=== PATIENT | female | born 1935 | race Two or more races ===

== ENCOUNTER 2017-04-04 19:34 | Inpatient (IN) | payer OTHER ==
[~2017-04-04] VITALS: Ht 162.6 cm; Wt 63.5 kg
--- NOTE | 2017-04-04 19:36 | NUR ---
[facility]. c/o lle pain s/p mechanical trip and fall. denies head trauma. no obvious deformity noted. stable vitals. awaiting md mcgarry.
--- NOTE | 2017-04-04 19:53 | NUR ---
dr levy at bedside for eval.
--- NOTE | 2017-04-04 20:52 | NUR ---
iv line started blood drawn and sent to lab.
[2017-04-04 21:06] LABS: BASOPHILS # (AUTO) 0.1 /CMM (0.0-0.2); BASOPHILS % (AUTO) 0.7 % (0.0-2.0); EOSINOPHILS # (AUTO) 0.2 /CMM (0.0-0.7); EOSINOPHILS % (AUTO) 1.1 % (0.0-6.0); HEMATOCRIT 36 % (33-45); LYMPHOCYTES # (AUTO) 1.1 /CMM (0.8-4.8); LYMPHOCYTES % (AUTO) 6.6 % (20.0-44.0); MEAN CORPUSCULAR HEMOGLOBIN 32 PG (26.0-33.0); MEAN CORPUSCULAR HGB CONC 33 g/dl (31.0-36.0); MEAN CORPUSCULAR VOLUME 97 fL (82-100); MONOCYTES # (AUTO) 0.4 /CMM (0.1-1.30); MONOCYTES % (AUTO) 2.7 % (2.0-12.0); NEUTROPHILS # (AUTO) 14.1 /CMM (1.8-8.9); NEUTROPHILS % (AUTO) 88.9 % (43.0-81.0); PLATELET COUNT (AUTO) 196 /CMM (150-450); RDW COEFFICIENT OF VARIATION 19.7 (11.5-15.0); RED BLOOD CELL COUNT(AUTO) 3.76 MIL/uL (4.0-5.2); WHITE BLOOD COUNT (AUTO) 15.8 K/uL (4.3-11.0)
--- NOTE | 2017-04-04 21:21 | NUR ---
DR.OLEG NESBITT
[2017-04-04] MEDS ORDERED: ACETAMINOPHEN ES 500 MG TABLET ONE (21:23)
[2017-04-04] MEDS ORDERED: ACETAMINOPHEN ES 500 MG TABLET PO ONE (21:30)
[2017-04-04 21:31] LABS: CALCIUM, SERUM 8.7 mg/dL (8.5-10.1); CARBON DIOXIDE 25 mmol/L (21-32); CHLORIDE 107 mmol/L (98-107); CREATININE 1.3 mg/dL (0.6-1.3); GLUCOSE 105 mg/dL (74-106); POTASSIUM 4.4 mmol/L (3.5-5.1); SODIUM SERUM 141 mmol/L (136-145); UREA NITROGEN, BLOOD 29 mg/dL (7-18)
[2017-04-04 21:34] LABS: INR 0.99 (0.87-1.13); PROTHROMBIN TIME 10.3 SECS (9.5-12.7)
[2017-04-04 21:37] LABS: ALANINE AMINOTRANSFERASE 13 U/L (12-78); ALBUMIN 3.3 g/dL (3.4-5.0); ALKALINE PHOSPHATASE 54 U/L (46-116); ASPARTATE AMINOTRANSFERASE 19 U/L (15-37); BILIRUBIN,DIRECT 0.1 mg/dL (0.0-0.2); BILIRUBIN,TOTAL 0.3 mg/dL (0.2-1.0); TOTAL PROTEIN, SERUM 6.6 g/dL (6.4-8.2)
[2017-04-04 21:39] LABS: TROPONIN I < 0.017 ng/mL (0.00-0.056)
[2017-04-04] MEDS ORDERED: ONDANSETRON HCL/PF 4 MG/2 ML VIAL ONE (21:44)
[2017-04-04] MEDS ORDERED: MORPHINE SULFATE INJ 2 MG/ML DISP.SYRIN ONE (21:44)
[2017-04-04] MEDS ORDERED: MORPHINE SULFATE INJ 2 MG/ML DISP.SYRIN IV ONE (22:00)
[2017-04-04] MEDS ORDERED: ONDANSETRON HCL/PF 4 MG/2 ML VIAL IVP ONE (22:00)
--- NOTE | 2017-04-04 22:12 | NUR ---
report given to ion. pt awaiting transfer to floor.
[2017-04-04 22:45] VITALS: BP 132/69
[2017-04-04] MEDS ORDERED: MORPHINE SULFATE INJ 2 MG/ML DISP.SYRIN IV PRN (23:00)
[2017-04-04] MEDS ORDERED: MAGNESIUM HYDROXIDE 30 ML UDC PO PRN (23:00)
[2017-04-04] MEDS ORDERED: Z GUARD REMEDY 2 OZ OINT TP PRN (23:00)
[2017-04-04] MEDS ORDERED: ONDANSETRON HCL/PF 4 MG/2 ML VIAL IVP PRN (23:00)
[2017-04-04] MEDS ORDERED: ACETAMINOPHEN 325 MG TABLET PO PRN (23:00)
[2017-04-04] MEDS ORDERED: ZOLPIDEM TARTRATE 5 MG TABLET PO PRN (23:00)
[2017-04-05] MEDS ORDERED: TEMA15CA PO (00:29)
[2017-04-05] MEDS ORDERED: CHOL200026 PO (00:29)
[2017-04-05] MEDS ORDERED: OMEP20CA10 PO (00:29)
[2017-04-05] MEDS ORDERED: ATEN50TA PO (00:29)
[2017-04-05] MEDS ORDERED: ESCI10TA PO (00:29)
[2017-04-05] MEDS ORDERED: LEVO75TA7 PO (00:29)
[2017-04-05] MEDS ORDERED: ACYC400T PO (00:29)
[2017-04-05] MEDS ORDERED: VITA400C68 PO (00:29)
[2017-04-05] MEDS ORDERED: SIMV20TA6 PO (00:29)
[2017-04-05] MEDS ORDERED: ASPI-605 PO (00:29)
--- NOTE | 2017-04-05 00:52 | NUR ---
MS/RN RECEIVE PATIENT AT 22;25 FROM E.R. VIA GURNEY ACCOMPANIED BY SON. PATIENT WAS AWAKE, ALERT, ORIENTED, ADMITTED FOR FRACTURE OF THE PELVIC, COMFORTABLE, NO C/O PAIN WHEN NOT MOVING, BUT WITH SO MUCH PAIN WHEN BEING MOVED, NO DISTRESS NOTED, MADE COMFORTABLE IN BED. OBTAINED F/C ORDER PER PATIENT'S REQUEST THE PATIENT DOES NOT TO MOVE. F/C INSERTED WITH CLEAR YELLOW URINE OUTPUT. OBTAIN SPECIMEN FOR UA AND CULTURE. ADMISSION DONE PER PROTOCOL. PATIENT REFUSED SKIN ASSESSMENT DUE TO PAIN. TAUGHT THE USE OF CALL LIGHT VERBALIZED UNDERSTANDING AND PLACED IT AT BEDSIDE WITHIN REACH. PLAN OF CARE DISCUSSED. VERBALIZED UNDERSTANDING AND AGREE ENT. WILL MONITOR.
[2017-04-05] MEDS ORDERED: TEMAZEPAM 15 MG CAPSULE ONE (01:33)
[2017-04-05] MEDS: TEMAZEPAM 15 MG CAPSULE PO PRN (01:37)
[2017-04-05] MEDS ORDERED: TEMAZEPAM 15 MG CAPSULE PO PRN (02:00)
--- NOTE | 2017-04-05 06:30 | NUR ---
MS/RN AWAKE, COMFORTABLE, NO CHANGE IN CONDITION. ALL NEEDS ATTENDED AT THIS TIME. WILL CONTINUE TO MONITOR.
[2017-04-05 07:37] LABS: BASOPHILS # (AUTO) 0.1 /CMM (0.0-0.2); BASOPHILS % (AUTO) 0.6 % (0.0-2.0); EOSINOPHILS # (AUTO) 0.3 /CMM (0.0-0.7); HEMATOCRIT 32 % (33-45); HEMOGLOBIN 10.6 g/dL (11.5-14.8); LYMPHOCYTES # (AUTO) 1.1 /CMM (0.8-4.8); LYMPHOCYTES % (AUTO) 10.5 % (20.0-44.0); MEAN CORPUSCULAR HEMOGLOBIN 32 PG (26.0-33.0); MEAN CORPUSCULAR HGB CONC 33 g/dl (31.0-36.0); MEAN CORPUSCULAR VOLUME 97 fL (82-100); MONOCYTES # (AUTO) 0.6 /CMM (0.1-1.30); NEUTROPHILS # (AUTO) 8.2 /CMM (1.8-8.9); NEUTROPHILS % (AUTO) 79.9 % (43.0-81.0); PLATELET COUNT (AUTO) 155 /CMM (150-450); RDW COEFFICIENT OF VARIATION 19.8 (11.5-15.0); RED BLOOD CELL COUNT(AUTO) 3.28 MIL/uL (4.0-5.2); WHITE BLOOD COUNT (AUTO) 10.3 K/uL (4.3-11.0)
[2017-04-05 07:38] LABS: ALANINE AMINOTRANSFERASE 19 U/L (12-78); ALBUMIN 2.8 g/dL (3.4-5.0); ALKALINE PHOSPHATASE 47 U/L (46-116); ASPARTATE AMINOTRANSFERASE 17 U/L (15-37); BILIRUBIN,TOTAL 0.4 mg/dL (0.2-1.0); CALCIUM, SERUM 8.1 mg/dL (8.5-10.1); CARBON DIOXIDE 22 mmol/L (21-32); CHLORIDE 108 mmol/L (98-107); CREATININE 1.1 mg/dL (0.6-1.3); GLUCOSE 131 mg/dL (74-106); MAGNESIUM 1.8 mg/dL (1.8-2.4); PHOSPHORUS 4.2 mg/dL (2.5-4.9); POTASSIUM 4.5 mmol/L (3.5-5.1); SODIUM SERUM 140 mmol/L (136-145); UREA NITROGEN, BLOOD 26 mg/dL (7-18)
[2017-04-05 07:39] LABS: THYROID STIMULATING HORMONE 0.309 uIU/mL (0.358-3.74)
[2017-04-05 08:00] VITALS: BP 126/60
--- NOTE | 2017-04-05 08:00 | NUR ---
MS ADAMS RN NOTES RECEIVED PATIENT SLEEPING ON BED. ON ROOM AIR, RESPIRATION EVEN AND NO S/S OF DISTRESS. MENCHACA CATHETER IN PLACE WITH CLEAR YELLOW URINE. SALINE LOCK ON LEFT AC, INTACT. BED IN LOWEST POSITION. SIDE RAILS UP. FALL PRECAUTIONS INITIATED. WILL CONTINUE TO MONITOR..
[2017-04-05] MEDS: LEVOTHYROXINE SODIUM 75 MCG TABLET PO SCH (08:23)
[2017-04-05] MEDS: PANTOPRAZOLE 40 MG TABLET.DR PO SCH (08:24)
[2017-04-05] MEDS: ASPIRIN EC 81 MG TABLET.DR PO SCH (08:26)
[2017-04-05] MEDS: ATENOLOL 50 MG TABLET PO SCH ×2 (08:33→16:51)
[2017-04-05] MEDS: HYDROCODONE/APAP 5/325MG 1 EACH TABLET PO PRN ×2 (08:40→12:59)
[2017-04-05] MEDS: DOCUSATE SODIUM 100 MG CAPSULE PO SCH ×2 (08:43→16:43)
[2017-04-05] MEDS: ESCITALOPRAM OXALATE (10 MG) 10 MG TABLET PO SCH (08:44)
[2017-04-05] MEDS: CHOLECALCIFEROL 1,000 UNIT TABLET (VIT D3) PO SCH (08:44)
--- NOTE | 2017-04-05 08:45 | NUR ---
PATIENT REFUSED VITAMIN D AFTER OPENING. DISCARDED TO THE WASTE BIN WITNESS BY CO RN WILL Gunn
--- NOTE | 2017-04-05 11:00 | NUR ---
Lina GTZ. AND SPOKE TO CRISTINE OF ORTHO OFFICE FOR ORTHO FOLLOW UP REGARDING PT'S RT PELVIC FX AND WILL WAIT TO RETURN CALL.
[2017-04-05 11:40] LABS: APPEARANCE,URINE CLEAR (CLEAR); BILIRUBIN,URINE NEGATIVE (NEGATIVE); BLOOD, URINE NEGATIVE Ery/uL (NEGATIVE); COLOR,URINE YELLOW (YELLOW); KETONES,URINE NEGATIVE (NEGATIVE); LEUKOCYTE ESTERASE ,URINE NEGATIVE (NEGATIVE); NITRITE, URINE NEGATIVE (NEGATIVE); PROTEIN,URINE NEGATIVE (NEGATIVE); UGLUCOSE NEGATIVE (NEGATIVE)
[2017-04-05 11:47] LABS: BACTERIA,URINE None seen /HPF (None Seen); RBC,URINE 0-2 /HPF (0-2); SQUAMOUS EPITHELIAL CELL,UR Few /HPF (None Seen); WBC,URINE 0-3 /HPF (0-3)
[2017-04-05] MEDS ORDERED: MENTHOL/CETYLPYRD (CEPACOL) 1 LOZ LOZENGE PO PRN (12:30)
--- NOTE | 2017-04-05 14:00 | NUR ---
PATIENT VTE SCORE 3. MECHANICAL PROPHYLAXIS DVT PUMP INITIATED. NO NEED FOR CHEMICAL PROPHYLAXIS PER MD..
--- NOTE | 2017-04-05 14:20 | NUR ---
EDD GTZAYamilka SECOND TIME.
[2017-04-05 16:00] VITALS: BP_SYST 102; BP_SYST 104; BP_DIAS 54
--- NOTE | 2017-04-05 17:50 | NUR ---
SEEN BY CINTHYA DOBBINS WITH FAMILY AT BEDSIDE.
--- NOTE | 2017-04-05 18:23 | NUR ---
MS RN CLOSING NOTES PATIENT RESTING IN BED COMFORTABLY WITH FAMILY AT BEDSIDE. NO CHANGE IN CONDITION. NO ACUTE DISTRESS NOTED. BED IN LOWEST POSITION. CALL LIGHT WITHIN REACH. ENDORSED TO RAISER HELPER RN.
--- NOTE | 2017-04-05 19:30 | NUR ---
MS/RN RECEIVE PATIENT AWAKE, ALERT, ORIENTED, COMFORTABLE, NO C/O PAIN AT THIS TIME, NO DISTRES NOTED. SON IS REQUESTING THAT THE PATIENT BE MOVED TO ANOTHER ROOM. WILL INFORM CHARGE NURSE.
[2017-04-05 20:00] VITALS: BP 120/58
--- NOTE | 2017-04-05 20:22 | NUR ---
MS/RN PATIENT WAS MOVED TO ANOTHER ROOM ([facility]) PER FAMILY'S REQUEST.
[2017-04-05] MEDS: SIMVASTATIN 20 MG TABLET PO SCH (22:08)
[2017-04-06] MEDS: HYDROCODONE/APAP 5/325MG 1 EACH TABLET PO PRN ×3 (01:08→16:29)
--- NOTE | 2017-04-06 02:00 | NUR ---
MS/RN PATIENT IS SLEEPING AT THIS TIME, AROUSABLE, APPEAR COMFORTABLE, NO SIGNS OF DISTRESS NOTED, CALL LIGHT IN REACH. WILL CONTINUE TO MONITOR.
--- NOTE | 2017-04-06 05:55 | NUR ---
MS/RN PATIENT STILL SLEEPING AT THIS TIME, APPEAR COMFORTABLE, NO SIGNS OF DISTRESS NOTED, CALL LIGHT IN REACH. WILL CONTINUE TO MONITOR.
[2017-04-06 08:00] VITALS: BP 120/59
[2017-04-06] MEDS: DOCUSATE SODIUM 100 MG CAPSULE PO SCH ×2 (08:18→16:29)
[2017-04-06] MEDS: CHOLECALCIFEROL 1,000 UNIT TABLET (VIT D3) PO SCH (08:18)
[2017-04-06] MEDS: PANTOPRAZOLE 40 MG TABLET.DR PO SCH (08:18)
[2017-04-06] MEDS: ASPIRIN EC 81 MG TABLET.DR PO SCH (08:18)
[2017-04-06] MEDS: LEVOTHYROXINE SODIUM 75 MCG TABLET PO SCH (08:18)
[2017-04-06] MEDS: ATENOLOL 50 MG TABLET PO SCH ×2 (08:20→16:29)
[2017-04-06] MEDS: ESCITALOPRAM OXALATE (10 MG) 10 MG TABLET PO SCH ×2 (09:00→15:02)
--- NOTE | 2017-04-06 09:51 | NUR ---
MS RN NOTE MENCHACA WAS REMOVED PER MD. PATIENT TOLERATED MENCHACA REMOVAL WELL. NO PAIN AT THIS TIME. ENCOURAGE PATIENT TO USE BEDPAN OR USE BEDSIDE COMMODE. WILL CONTINUE TO MONITOR
--- NOTE | 2017-04-06 14:00 | NUR ---
MS HOT SEALING MACHINE OPERATOR NOTE TRANSFERRED PATIENT TO JAVON GRIGGS. GAVE REPORT. PATIENT IS ALERT AND ORIENTED x4. NO PAIN AT THIS TIME. NO SOB OR DISTRESS NOTED. CALL LIGHT WITHIN REACH AT ALL TIMES. SAFETY MEASURES IMPLEMENTED. ABLE TO COMMUNICATE NEEDS. IV INTACT AND PATENT NO REDNESS OR SWELLING NOTED.
[2017-04-06 16:00] VITALS: BP 121/54
[2017-04-06 16:34] VITALS: BP 132/51
--- NOTE | 2017-04-06 18:09 | NUR ---
CONE BAKER MACHINE PT IN BED NO CHANGES IN CONDITION FROM BASELINE, PAIN MED GIVEN, PT IS COMFORTABLE VS STABLE CALL LIGHT W/ IN REACH ALL PT NEEDS MEET STILL ON 2L NC, PT ABLE TO TURN IN BED AND WITH ASSIST REPOSITION, WILL GIVE REPORT TO DALI MONTERO FOR CONTINUITY OF CARE.
--- NOTE | 2017-04-06 19:30 | NUR ---
MS LEANN INITIAL NOTES GOT REPORT FROM AM NURSE AND SEEN PT IN HER ROOM SITTING ON THE CHAIR WHILE WATCHING TV. DENIES ANY PAIN OR ANY DISCOMFORT AT THIS TIME. ABLE TO WALKED WITH WALKER AND SOME ASSISTANCE TO USE THE BEDSIDE COMODE. PT AWARE THAT NO SURGERY PLAN AT THIS TIME PER ORTHO DOCTOR. KEPT HER WARM AND COMFORTABLE AT ALL TIMES. ENCOURAGE HER TO USED THE CALL LIGHT IF SHE NEEDS SOME HELPED. WILL CONTINUE TO MONITOR. PLACE CALL LIGHT AT REACH.
[2017-04-06 20:00] VITALS: BP 96/52
[2017-04-06] MEDS: SIMVASTATIN 20 MG TABLET PO SCH (21:59)
[2017-04-07] MEDS: TEMAZEPAM 15 MG CAPSULE PO PRN ×2 (00:37→23:23)
--- NOTE | 2017-04-07 00:37 | NUR ---
ROLL FORMER/NOTES PT CALLED AND ASKING FOR HER SLEEP MEDICATION . SAFETY PRECAUTION APPLIED AND PT AWARE OF POSSIBLE SIDE EFFECT. KEPT HER WARM AND COMFORTABLE AT ALL TIMES.WILL CONTINUE TO MONITOR. PLACE CALL LIGHT AT REACH.
--- NOTE | 2017-04-07 07:30 | NUR ---
MS RN AM NOTES RECEIVE PATIENT IN BED, AWAKE, ALERT, ORIENTEDX4, ON RA, NO SOB, RESPIRATION UNLABORED, NO C/O PAIN AT THIS TIME, LEFT AC 20G FLUSHES WELL, SITE CLEAR. ON CARDIAC DIET, NO SKIN ISSUES, USES BSC. DISCUSSED PLAN OF CARE. CALL LIGHT WITHIN REACH. WILL CONT TO MONITOR.
--- NOTE | 2017-04-07 07:39 | NUR ---
COMMERCIAL ESCROW OFFICER/CLOSING NOTES PT REMAINS RESTING COMFORTABLY IN BED . ALL DUE MEDS GIVEN AND ALL NEEDS MET STABLE JOHANNA THE NIGHT. ENDORSE.
[2017-04-07 08:00] VITALS: BP 120/57
[2017-04-07] MEDS: PANTOPRAZOLE 40 MG TABLET.DR PO SCH (08:04)
[2017-04-07] MEDS: LEVOTHYROXINE SODIUM 75 MCG TABLET PO SCH (08:04)
[2017-04-07] MEDS: ATENOLOL 50 MG TABLET PO SCH ×2 (08:35→16:38)
[2017-04-07] MEDS: CHOLECALCIFEROL 1,000 UNIT TABLET (VIT D3) PO SCH (08:35)
[2017-04-07] MEDS: DOCUSATE SODIUM 100 MG CAPSULE PO SCH ×2 (08:35→16:37)
[2017-04-07] MEDS: ASPIRIN EC 81 MG TABLET.DR PO SCH (08:35)
--- NOTE | 2017-04-07 09:30 | NUR ---
MS RN NOTES ADMINISTERED DUE MEDS.
--- NOTE | 2017-04-07 11:10 | NUR ---
MS RN NOTES PATIENT HAD PHYSICAL THERAPY TODAY.
[2017-04-07] MEDS: SOD FERRIC GLUC 125 MG in IV NS 0.9% 100 ML IV SCH (14:00)
--- NOTE | 2017-04-07 14:06 | NUR ---
MS RN NOTES PATIENT REFUSED FERRLECIT IV.
[2017-04-07 16:00] VITALS: BP 121/56
[2017-04-07] MEDS: ESCITALOPRAM OXALATE (10 MG) 10 MG TABLET PO SCH (16:37)
--- NOTE | 2017-04-07 17:17 | NUR ---
Received a call from victoriano Salcido [phone],faxed SNF referral to [facility] [phone] per son request.Left message to Nancy- admission Addendum: 04/07/17 at 1717 by ELIU HENDRICKS RN Amended: Links added.
[2017-04-07 18:00] VITALS: BP 121/56
--- NOTE | 2017-04-07 19:15 | NUR ---
MS RN CLOSING NOTES PATIENT RESTING IN BED, AWAKE, ALERT, ORIENTEDX4, ON RA, NO SOB, RESPIRATION UNLABORED, NO C/O PAIN AT THIS TIME, LEFT AC 20G FLUSHES WELL, SITE CLEAR. ON CARDIAC DIET, NO SKIN ISSUES, USES BSC. STILL AWAITING PLACEMENT. ALL NEEDS MET. CALL LIGHT WITHIN REACH. ENDORSED TO NEXT SHIFT FOR PATRICE.
--- NOTE | 2017-04-07 19:30 | NUR ---
INITIAL NOTES: RECEIVED PT IN ROOM, AWAKE, RESTING COMFORTABLE. A&OX3, RESPIRATION EVEN AND UNLABORED. PT DENIES PAIN AT THIS TIME. AMBULATORY WITH ASSISTANCE. FALL RISK. HL ON LAC #20 PATENT AND INTACT. FLUSHING WELL. NO REDNESS AND INFILTRATION NOTED. KEPT CLEAN AND DRY AT ALL TIMES. ALL NEEDS ATTENDED AND ANTICIPATED. BED IN LOW AND LOCKED POSITION. SIDERAILS UPX2. CALL LIGHT WITHIN REACH. WILL CONTINUE TO MONITOR FOR SAFETY.
[2017-04-07 20:00] VITALS: BP 125/57
[2017-04-07] MEDS: SIMVASTATIN 20 MG TABLET PO SCH (21:01)
--- NOTE | 2017-04-07 23:24 | NUR ---
pt requested for sleeping pill prn restoril 15mg po administered to the pt. will continue to monitor and reassess.
--- NOTE | 2017-04-08 07:07 | NUR ---
ms rn closing notes: pt in bed, awake, denies any pain or discomfort throughout the shift. remains on 2l via nc, no sob noted. left ac iv access remains patent and flushing well, on hl. pt for snf/rehab placement, case management on board. vs remains stable, needs attended. safety precautions for fall remains engaged, call light in reach, will endorse to day rn for lucy.
[2017-04-08 08:00] VITALS: BP 125/61
--- NOTE | 2017-04-08 08:00 | NUR ---
MS/RN OPENING NOTE RECEIVED PT. IN BED AWAKE, A&OX4. PT. HAS SIGN ON WALL ABOVE BED, NO BP ON RIGHT ARM, PT. HAS HX. OF BREAST CANCER AND MASTECTOMY. PT. IS WEARING NASAL CANNULA AT 2L/MIN, NO SOB, AND NO S/S OF ACUTE DISTRESS. PT. LEFT ANTECUBITAL IV IS INTACT AND PATENT. CALL LIGHT IS WITHIN REACH, AND ADVISED PT. TO CALL FOR ASSISTANCE. WILL CONTINUE TO ASSESS AND MONITOR.
[2017-04-08] MEDS: PANTOPRAZOLE 40 MG TABLET.DR PO SCH (08:35)
[2017-04-08] MEDS: LEVOTHYROXINE SODIUM 75 MCG TABLET PO SCH (08:35)
[2017-04-08] MEDS: DOCUSATE SODIUM 100 MG CAPSULE PO SCH ×2 (08:36→20:06)
[2017-04-08] MEDS: ATENOLOL 50 MG TABLET PO SCH ×2 (08:36→20:09)
[2017-04-08] MEDS: CHOLECALCIFEROL 1,000 UNIT TABLET (VIT D3) PO SCH (08:37)
[2017-04-08] MEDS: ASPIRIN EC 81 MG TABLET.DR PO SCH (08:37)
[2017-04-08] MEDS: HYDROCODONE/APAP 5/325MG 1 EACH TABLET PO PRN (11:01)
[2017-04-08 16:00] VITALS: BP 113/41
[2017-04-08] MEDS ORDERED: IV SET PRIMARY PUMP SET 1 EA INFUS.SET MC ONE ×2 (16:16→19:59)
[2017-04-08] MEDS: ESCITALOPRAM OXALATE (10 MG) 10 MG TABLET PO SCH (16:29)
--- NOTE | 2017-04-08 16:29 | NUR ---
MS/RN NOTES PT. REFUSED FERRLECIT IV INFUSION AT THIS TIME, AND REQUESTED TO HAVE MEDICATIONS GIVEN AT A LATER. IV MEDICATION WAS HELD.
--- NOTE | 2017-04-08 19:45 | NUR ---
RN OPEN NOTES RECEIVED PATIENT AWAKE IN BED WITH FAMILY AT BEDSIDE. A/O X4. NO SIGNS OF DISTRESS OR DISCOMFORT. BREATHING EVEN AND UNLABORED. ON 2LPM O2 VIA NC. DENIES ANY PAIN AT THIS TIME. IV ACCESS IN LAC PATENT AND INTACT, NO SIGNS OF REDNESS OR INFILTRATION. BED IN LOW LOCKED POSITION WITH SIDE RAILS X2. CALL LIGHT WITHIN REACH. WILL CONTINUE TO MONITOR.
[2017-04-08 20:00] VITALS: BP 147/71
--- NOTE | 2017-04-08 20:00 | NUR ---
MS/RN CLOSING NOTE PT. IS IN BED EATING, A&OX4. NO SOB, WEARING NASAL CANNULA AT 2L/MIN, NO SIGNS OF ACUTE DISTRESS. CALL LIGHT WITHIN REACH, PT. WAS ADVISED TO CALL FOR ASSISTANCE. ENDORSED REPORT TO COMPUTER SYSTEMS INTEGRATOR NURSE.
--- NOTE | 2017-04-08 20:06 | NUR ---
MS/RN NOTES IV FERRLECIT WAS ADMINISTERED. 1700 COLACE, AND ATENOLOL MEDICATIONS WERE ADMINISTERED LATE DUE TO AN URGENT SITUATION WITH A PATIENT IN ANOTHER ROOM BEING ATTENDED TO AT THAT TIME.
[2017-04-08] MEDS: SOD FERRIC GLUC 125 MG in IV NS 0.9% 100 ML IV SCH (20:13)
[2017-04-08] MEDS: SIMVASTATIN 20 MG TABLET PO SCH (22:05)
--- NOTE | 2017-04-09 06:48 | NUR ---
RN CLOSING NOTES PATIENT RESTING IN BED. A/O X4. NO SIGNS OF DISTRESS OR DISCOMFORT. BREATHING EVEN AND UNLABORED. ON 2LPM O2 VIA NC. DENIES ANY PAIN AT THIS TIME. IV ACCESS IN LAC PATENT AND INTACT, NO SIGNS OF REDNESS OR INFILTRATION. NO SIGNIFICANT CHANGES THROUGH THE NIGHT. ALL NEEDS MET. BED IN LOW LOCKED POSITION WITH SIDE RAILS X2. CALL LIGHT WITHIN REACH. WILL ENDORSE TO AM SHIFT FOR PATRICE.
--- NOTE | 2017-04-09 07:37 | NUR ---
AM RN NOTE Received patient awake, A/O X4 verbally responsive. No acute distress noted. On O2 2L/min via NC. Resp even and non-labored. IV site intact and patent. Bed in low locked position. Will continue to monitor. Call light with in easy reach.
[2017-04-09 08:00] VITALS: BP 156/73
[2017-04-09] MEDS: DOCUSATE SODIUM 100 MG CAPSULE PO SCH ×2 (08:12→16:45)
[2017-04-09] MEDS: CHOLECALCIFEROL 1,000 UNIT TABLET (VIT D3) PO SCH (08:13)
[2017-04-09] MEDS: ATENOLOL 50 MG TABLET PO SCH ×2 (08:13→16:45)
[2017-04-09] MEDS: ASPIRIN EC 81 MG TABLET.DR PO SCH (08:13)
[2017-04-09] MEDS: PANTOPRAZOLE 40 MG TABLET.DR PO SCH (08:13)
[2017-04-09] MEDS: LEVOTHYROXINE SODIUM 75 MCG TABLET PO SCH (08:13)
[2017-04-09] MEDS: HYDROCODONE/APAP 5/325MG 1 EACH TABLET PO PRN ×2 (08:15→16:46)
--- NOTE | 2017-04-09 08:15 | NUR ---
AM RN NOTE Pt c/o pelvis area pain, requested for [place], medication given as ordered.
[2017-04-09] MEDS: ESCITALOPRAM OXALATE (10 MG) 10 MG TABLET PO SCH (14:41)
[2017-04-09] MEDS: SOD FERRIC GLUC 125 MG in IV NS 0.9% 100 ML IV SCH (14:41)
[2017-04-09 15:41] VITALS: BP 116/69
[2017-04-09 15:48] VITALS: BP 116/69
--- NOTE | 2017-04-09 18:16 | NUR ---
AM RN NOTE Patient awake, A/O X3 visiting with her family, no acute distress noted. All needs met and attended in timely manner. Will endorse care to next shift.
--- NOTE | 2017-04-09 19:10 | NUR ---
RN OPEN NOTES RECEIVED PATIENT AWAKE IN BED. A/O X4. NO SIGNS OF DISTRESS OR DISCOMFORT. BREATHING EVEN AND UNLABORED. ON 2LPM O2 VIA NC. DENIES ANY PAIN AT THIS TIME. IV ACCESS IN LAC PATENT AND INTACT, NO SIGNS OF REDNESS OR INFILTRATION. BED IN LOW LOCKED POSITION WITH SIDE RAILS X2. CALL LIGHT WITHIN REACH. WILL CONTINUE TO MONITOR.
[2017-04-09 20:00] VITALS: BP 138/63
[2017-04-09] MEDS: SIMVASTATIN 20 MG TABLET PO SCH (21:14)
[2017-04-10] MEDS: HYDROCODONE/APAP 5/325MG 1 EACH TABLET PO PRN ×3 (00:51→16:38)
--- NOTE | 2017-04-10 00:51 | NUR ---
RN NOTES ADMINISTERED NORCO 5/325 ORDERED FOR PAIN 5/10 IN LEFT HIP. WILL CONTINUE TO MONITOR.
[2017-04-10 08:00] VITALS: BP 130/64
--- NOTE | 2017-04-10 08:00 | NUR ---
MS RN AM NOTES PATIENT A/O X4. NO SIGNS OF DISTRESS OR DISCOMFORT. BREATHING EVEN AND UNLABORED. ON 2LPM O2 VIA NC. DENIES ANY PAIN AT THIS TIME. IV ACCESS IN LAC INFILTRATED AND PT REFUSED A NEW HEPLOCK TO BE REINSERTED.NO SIGNS OF REDNESS OR INFILTRATION.NEEDS MET. BED IN LOW LOCKED POSITION WITH SIDE RAILS X2. CALL LIGHT WITHIN REACH.
[2017-04-10] MEDS: DOCUSATE SODIUM 100 MG CAPSULE PO SCH ×2 (08:54→16:15)
[2017-04-10] MEDS: LEVOTHYROXINE SODIUM 75 MCG TABLET PO SCH (08:54)
[2017-04-10] MEDS: CHOLECALCIFEROL 1,000 UNIT TABLET (VIT D3) PO SCH (08:55)
[2017-04-10] MEDS: ASPIRIN EC 81 MG TABLET.DR PO SCH (08:55)
[2017-04-10] MEDS: ATENOLOL 50 MG TABLET PO SCH ×2 (08:55→16:15)
[2017-04-10] MEDS: PANTOPRAZOLE 40 MG TABLET.DR PO SCH (08:55)
[2017-04-10] MEDS ORDERED: HYDR-552 PO (10:23)
[2017-04-10 16:00] VITALS: BP 107/52
[2017-04-10 16:15] VITALS: BP 107/52
[2017-04-10] MEDS: ESCITALOPRAM OXALATE (10 MG) 10 MG TABLET PO SCH (16:15)
--- NOTE | 2017-04-10 17:20 | NUR ---
DISCHARGE INSTRUCTIONS GIVEN TO THE PT.IV H/L REMOVED TO LT AC -PT TOLERATED WELL.REPORT CALLED IN TO CHRISTIE VALERIO RN OF [facility].DISCHARGED PT TO [facility] WITH STABLE V/S.
== END 2017-04-10 17:30 | DRG 542 ==
LOC: ER 19:35 → MED 22:03
PROVIDERS: ADMIT Internal Medicine; ATTEND Internal Medicine
DX: M80.852A Other osteoporosis with current pathological fracture, left femur, initial encounter for fracture (principal); N17.0 Acute kidney failure with tubular necrosis; W18.39XA Other fall on same level, initial encounter; Y92.008 Other place in unspecified non-institutional (private) residence as the place of occurrence of the external cause; J44.9 Chronic obstructive pulmonary disease, unspecified; D72.828 Other elevated white blood cell count; E86.0 Dehydration; E03.9 Hypothyroidism, unspecified; E78.5 Hyperlipidemia, unspecified; K58.9 Irritable bowel syndrome, unspecified; Z87.891 Personal history of nicotine dependence; Z85.3 Personal history of malignant neoplasm of breast; Z90.10 Acquired absence of unspecified breast and nipple; Z98.41 Cataract extraction status, right eye; D64.9 Anemia, unspecified; Y93.9 Activity, unspecified
CPT/HCPCS: 36415; 71010-TC; 73502; 73552; 80048-TC; 80053-TC; 80061-TC; 80076-TC; 81000-TC; 82728-TC; 83540-TC; 83735-TC; 84100-TC; 84439-TC; 84443-TC; 84484-TC; 85025-TC; 85730-TC; 87081-TC; 87086-TC; 93307-TC; 94799-TC; 97001-TC; 97110-TC; 97116-TC; 97530-TC; A4606; J2270; J2405; J2916; J7030; Z7610

== ENCOUNTER 2017-05-14 16:16 | Inpatient (IN) | payer OTHER ==
[~2017-05-14] VITALS: Ht 157.5 cm; Wt 60.8 kg
[~2017-05-14 16:16] MED LIST: ACYC400T PO; ASPI-605 PO; ATEN50TA PO; CHOL200026 PO; ESCI10TA PO; HYDR-552 PO; LEVO75TA7 PO; OMEP20CA10 PO; SIMV20TA6 PO; TEMA15CA PO; VITA400C68 PO
[2017-05-14] MEDS ORDERED: IV NS 0.9% 500 ML IV ONE (16:20)
[2017-05-14] MEDS ORDERED: IV NS 0.9% 500 ML BAG IV ONE (16:30)
--- NOTE | 2017-05-14 16:30 | NUR ---
PT bbra from home for generalized weakness since x 2 weeks worsening today. Seen by MD FOR EVAL. VSS. PT AAOX3. FAMILY MEMBER AT . SAFETY AND COMFORT MEASURES PROVIDED. WILL MONITOR.
--- NOTE | 2017-05-14 16:40 | NUR ---
IV ACCESS STARTED. PT MEDICATED ORDERED.
[2017-05-14 16:46] LABS: BASOPHILS # (AUTO) 0.2 /CMM (0.0-0.2); BASOPHILS % (AUTO) 2.6 % (0.0-2.0); EOSINOPHILS # (AUTO) 0.1 /CMM (0.0-0.7); EOSINOPHILS % (AUTO) 1.8 % (0.0-6.0); HEMATOCRIT 33 % (33-45); HEMOGLOBIN 10.1 g/dL (11.5-14.8); LYMPHOCYTES # (AUTO) 0.8 /CMM (0.8-4.8); LYMPHOCYTES % (AUTO) 9.8 % (20.0-44.0); MEAN CORPUSCULAR HEMOGLOBIN 29 PG (26.0-33.0); MEAN CORPUSCULAR HGB CONC 30 g/dl (31.0-36.0); MEAN CORPUSCULAR VOLUME 97 fL (82-100); MONOCYTES # (AUTO) 0.5 /CMM (0.1-1.30); NEUTROPHILS # (AUTO) 6.2 /CMM (1.8-8.9); NEUTROPHILS % (AUTO) 79.8 % (43.0-81.0); PLATELET COUNT (AUTO) 335 /CMM (150-450); RDW COEFFICIENT OF VARIATION 19.2 (11.5-15.0); RED BLOOD CELL COUNT(AUTO) 3.43 MIL/uL (4.0-5.2); WHITE BLOOD COUNT (AUTO) 7.8 K/uL (4.3-11.0)
[2017-05-14 16:52] LABS: CALCIUM, SERUM 8.5 mg/dL (8.5-10.1); CARBON DIOXIDE 21 mmol/L (21-32); CHLORIDE 98 mmol/L (98-107); CREATININE 0.8 mg/dL (0.6-1.3); GLUCOSE 101 mg/dL (74-106); POTASSIUM 3.6 mmol/L (3.5-5.1); SODIUM SERUM 129 mmol/L (136-145); UREA NITROGEN, BLOOD 12 mg/dL (7-18)
[2017-05-14 16:55] LABS: INR 1.09 (0.87-1.13); PROTHROMBIN TIME 11.3 SECS (9.5-12.7)
[2017-05-14 17:13] LABS: THYROID STIMULATING HORMONE 14.626 uIU/mL (0.358-3.74)
--- NOTE | 2017-05-14 17:44 | NUR ---
URINE SAMPLE SENT
[2017-05-14 17:56] LABS: APPEARANCE,URINE Clear (CLEAR); BILIRUBIN,URINE Negative (NEGATIVE); BLOOD, URINE Trace-intact Ery/uL (NEGATIVE); COLOR,URINE Yellow (YELLOW); KETONES,URINE Negative (NEGATIVE); LEUKOCYTE ESTERASE ,URINE Negative (NEGATIVE); NITRITE, URINE Negative (NEGATIVE); PH,URINE 6.5 (5.0-8.0); PROTEIN,URINE Negative (NEGATIVE); UGLUCOSE Negative (NEGATIVE)
[2017-05-14 18:14] LABS: BACTERIA,URINE None seen /HPF (None Seen); SQUAMOUS EPITHELIAL CELL,UR Few /HPF (None Seen)
--- NOTE | 2017-05-14 18:34 | NUR ---
REPORT GIVEN TO DARINEL ALEJANDRO FOR MS ROOM 116-2
--- NOTE | 2017-05-14 19:30 | NUR ---
MS JAVON INITIAL NOTES RECEIVED PATIENT VIA WC WITH SON ARIANNE AT BEDSIDE. PATIENT IS A/OX4, ABLE TO MAKE NEEDS KNOWN. PATIENT WITH C/O 7/10 PAIN SACRAL, PELVIC, LEGS AREA. STATES SHE FEELS PAIN WHEN STANDING UP, BUT SHE'S BETTER WHEN LAYING DOWN. NO RESPIRATORY DISTRESS NOTED, ON 2LPM O2 VIA NC. SKIN WARM AND DRY TO TOUCH. PER SON, SHE WAS BROUGHT IN TODAY DUE TO WEAKNESS AND POOR ORAL INTAKE. PER PATIENT SHE WAS VISITING HER SON HERE IN [place], PATIENT ORIGINALLY LIVES ON HER OWN IN [place]. WHEN SHE CAME TO VISIT SHE HAD A FALL INCIDENT ABOUT SIX WEEKS AGO AND WAS ADMITTED AT THE HOSPITAL, THEN REHABILITATED, AND WENT BACK TO HER SONS HOME. BUT EVER SINCE THE FALL SHE IS IN CONSTANT PAIN, AND TAKE IBUPROFEN FOR PAIN MANAGEMENT. WALKING OR STANDING UP IS PAINFUL FOR HER. BEFORE THE FALL SHE WAS AMBULATING WITH NO ASSISTANCE. AFTER THE FALL, SHE NEEDS TO USE A WALKER TO AMBULATE. PER SON PATIENT HAS ADVANCED DIRECTIVE AND WILL BE PROVIDED WHEN FOUND. PER SON AND PATIENT HER WISHES ARE DNR, WILL INFORM MD. PATIENT ORIENTED TO ROOM AND CALL LIGHT SYSTEM, PATIENT VERBALIZED UNDERSTANDING. SIDE RAILS UP AND LOCKED. BED KEPT AT LOWEST POSITION. CALL LIGHT KEPT WITHIN EASY REACH. PENDING ADMITTING ORDERS. WILL CONTINUE TO MONITOR.
[2017-05-14] MEDS ORDERED: IBUP-1955 PO (19:56)
[2017-05-14 20:00] VITALS: BP 172/88
[2017-05-14] MEDS ORDERED: MORPHINE SULFATE INJ 2 MG/ML DISP.SYRIN IV ONE (20:00)
[2017-05-14] MEDS ORDERED: MORPHINE SULFATE INJ 2 MG/ML DISP.SYRIN ONE (20:20)
[2017-05-14] MEDS ORDERED: ACETAMINOPHEN 325 MG TABLET PO PRN (22:00)
[2017-05-14] MEDS ORDERED: ENOXAPARIN SODIUM 40 MG/0.4 ML DISP.SYRIN SQ SCH (22:00)
[2017-05-14] MEDS ORDERED: ONDANSETRON HCL/PF 4 MG/2 ML VIAL IVP PRN (22:00)
[2017-05-14] MEDS ORDERED: Z GUARD REMEDY 2 OZ OINT TP PRN (22:00)
[2017-05-14] MEDS ORDERED: ENOXAPARIN SODIUM 40 MG/0.4 ML DISP.SYRIN SQ ONE (23:25)
[2017-05-14] MEDS ORDERED: IV NS 0.9% 1,000 ML ONE (23:26)
[2017-05-14] MEDS ORDERED: IV SET PRIMARY PUMP SET 1 EA INFUS.SET MC ONE (23:26)
[2017-05-14] MEDS: IV NS 0.9% 1,000 ML IV PRN (23:33)
[2017-05-14] MEDS ORDERED: ATENOLOL 50 MG TABLET ONE (23:49)
[2017-05-14] MEDS ORDERED: SIMVASTATIN 20 MG TABLET ONE (23:50)
[2017-05-15] MEDS ORDERED: TEMAZEPAM 15 MG CAPSULE PO PRN
[2017-05-15] MEDS: SIMVASTATIN 20 MG TABLET PO SCH ×2 (00:20→21:34)
[2017-05-15] MEDS ORDERED: ATENOLOL 50 MG TABLET PO SCH ×2 (00:30→09:00)
[2017-05-15] MEDS ORDERED: MORPHINE SULFATE INJ 2 MG/ML DISP.SYRIN ONE ×2 (01:06→06:37)
[2017-05-15] MEDS: MORPHINE SULFATE INJ 2 MG/ML DISP.SYRIN IV PRN ×2 (01:12→06:41)
[2017-05-15 04:00] VITALS: BP 158/59
[2017-05-15 04:10] LABS: BASOPHILS # (AUTO) 0.1 /CMM (0.0-0.2); BASOPHILS % (AUTO) 0.7 % (0.0-2.0); EOSINOPHILS # (AUTO) 0.2 /CMM (0.0-0.7); EOSINOPHILS % (AUTO) 2.4 % (0.0-6.0); HEMATOCRIT 28 % (33-45); HEMOGLOBIN 9.4 g/dL (11.5-14.8); LYMPHOCYTES # (AUTO) 0.9 /CMM (0.8-4.8); LYMPHOCYTES % (AUTO) 11.6 % (20.0-44.0); MEAN CORPUSCULAR HEMOGLOBIN 33 PG (26.0-33.0); MEAN CORPUSCULAR HGB CONC 34 g/dl (31.0-36.0); MEAN CORPUSCULAR VOLUME 98 fL (82-100); MONOCYTES # (AUTO) 0.8 /CMM (0.1-1.30); MONOCYTES % (AUTO) 10.3 % (2.0-12.0); NEUTROPHILS # (AUTO) 5.8 /CMM (1.8-8.9); PLATELET COUNT (AUTO) 254 /CMM (150-450); RDW COEFFICIENT OF VARIATION 20.6 (11.5-15.0); RED BLOOD CELL COUNT(AUTO) 2.83 MIL/uL (4.0-5.2); WHITE BLOOD COUNT (AUTO) 7.7 K/uL (4.3-11.0)
[2017-05-15 04:27] LABS: ALANINE AMINOTRANSFERASE 15 U/L (12-78); ALBUMIN 2.6 g/dL (3.4-5.0); ALKALINE PHOSPHATASE 91 U/L (46-116); ASPARTATE AMINOTRANSFERASE 15 U/L (15-37); BILIRUBIN,TOTAL 0.7 mg/dL (0.2-1.0); CALCIUM, SERUM 7.8 mg/dL (8.5-10.1); CARBON DIOXIDE 25 mmol/L (21-32); CHLORIDE 106 mmol/L (98-107); CREATININE 0.6 mg/dL (0.6-1.3); GLUCOSE 76 mg/dL (74-106); MAGNESIUM 1.8 mg/dL (1.8-2.4); PHOSPHORUS 3.5 mg/dL (2.5-4.9); SODIUM SERUM 138 mmol/L (136-145); TOTAL PROTEIN, SERUM 5.5 g/dL (6.4-8.2); UREA NITROGEN, BLOOD 8 mg/dL (7-18)
[2017-05-15 04:50] LABS: CHOLESTEROL 107 mg/dL (<200); HDL CHOLESTEROL 25 mg/dL (40-60); LDL 58 mg/dL (0-99); THYROID STIMULATING HORMONE 12.708 uIU/mL (0.358-3.74); TRIGLYCERIDES 94 mg/dL (30-150)
[2017-05-15 05:01] VITALS: BP 158/59
--- NOTE | 2017-05-15 05:28 | NUR ---
NOTED PATIENTS POTASSIUM LEVEL 3.0, DR. VARGAS INFORMED WITH ORDERS TO GIVE POTASSIUM [id number] NOW AND AGAIN AT 10AM. NOTED AND CARRIED OUT.
[2017-05-15] MEDS ORDERED: POTASSIUM CHLORIDE 20 MEQ TAB.PRT.SR PO ONE ×3 (05:29→10:00)
[2017-05-15] MEDS ORDERED: PANTOPRAZOLE 40 MG TABLET.DR PO ONE (05:54)
[2017-05-15] MEDS ORDERED: LEVOTHYROXINE SODIUM 75 MCG TABLET ONE (05:54)
[2017-05-15] MEDS: PANTOPRAZOLE 40 MG TABLET.DR PO SCH (06:36)
[2017-05-15] MEDS: LEVOTHYROXINE SODIUM 75 MCG TABLET PO SCH (06:36)
--- NOTE | 2017-05-15 07:10 | NUR ---
MS RN CLOSING NOTES NO SIGNIFICANT CHANGES OVERNIGHT. PATIENT WITH PAIN DURING CHANGING POSITIONS, PAIN MANAGED NEEDED. NO RESPIRATORY DISTRESS NOTED. ALL NEEDS ANTICIPATED AND MET. IVF RUNNING. SAFETY MEASURES MET. KEPT CLEAN AND DRY. TURNED AND REPOSITIONED Q2 AND PRN TOLERATED. HOB ELEVATED. SIDE RAILS UP AND LOCKED. BED KEPT AT LOWEST POSITION. CALL LIGHT KEPT WITHIN EASY REACH. WILL ENDORSE CONTINUITY OF CARE TO AM NURSE. ALL [facility] ONCE CLEARED FOR PATIENTS SAFETY.
[2017-05-15 08:00] VITALS: BP 119/62
--- NOTE | 2017-05-15 08:30 | NUR ---
Pt in bed awake, alert, oriented x4 verbally responsive, denies any pain at time, ivf infusing, no distress.
[2017-05-15] MEDS ORDERED: IBUPROFEN 600 MG TABLET PO SCH (09:00)
[2017-05-15] MEDS ORDERED: ASPIRIN EC 81 MG TABLET.DR PO SCH (09:00)
[2017-05-15] MEDS: GABAPENTIN 300 MG CAPSULE PO SCH ×3 (09:48→16:39)
[2017-05-15] MEDS: ESCITALOPRAM OXALATE (10 MG) 10 MG TABLET PO SCH (09:48)
[2017-05-15] MEDS: CHOLECALCIFEROL (VITAMIN D 3) 400 UNIT TABLET PO SCH (09:48)
[2017-05-15] MEDS: VITAMIN E 400 UNIT CAPSULE PO SCH (09:48)
[2017-05-15] MEDS: ASPIRIN EC 81 MG TABLET.DR PO SCH (11:03)
[2017-05-15] MEDS: ACYCLOVIR 200 MG CAPSULE PO SCH ×2 (11:04→16:39)
[2017-05-15] MEDS: ATENOLOL 50 MG TABLET PO SCH ×2 (11:04→21:36)
[2017-05-15] MEDS: KETOROLAC TROMETHAMINE INJ 30 MG/ML VIAL IV PRN (11:05)
--- NOTE | 2017-05-15 14:00 | NUR ---
Dr Piña in unit to see pt was refer to him that pt's son want to talk to him regarding pt's care, md will see, physical therapy wants to see pt but MD refer to her that PT can see pt after ortho see pt and ok for PT to see pt, also pt was seen earlier by neurologist new orders noted.
[2017-05-15 16:00] VITALS: BP 127/55
[2017-05-15 16:31] VITALS: BP 127/55
--- NOTE | 2017-05-15 17:00 | NUR ---
Pt sleeping comfortable in bed no s/s of pain at this time awaiting for ortho consult, new orders for WBAT -BLE noted, pt is in no distress, call light in reach.
--- NOTE | 2017-05-15 19:30 | NUR ---
RN OPENING NOTES RECEIVED REPORT FROM AKILAH ALEJANDRO. PATIENT A/A/O X4, ABLE TO MAKE NEEDS KNOWN. ON O2 2LPM VIA NC, NO RESPIRATORY DISTRESS NOTED, BREATHING EVEN AND UNLABORED. LEFT WRIST #20 IV SITE INTACT AND PATENT W/ NS @ 25 ML/HR. DENIES ANY PAIN @ THIS TIME. FAMILY @ BEDSIDE. WILL CONTINUE TO MONITOR.
[2017-05-15 20:00] VITALS: BP 139/47
[2017-05-15] MEDS: ENOXAPARIN SODIUM 40 MG/0.4 ML DISP.SYRIN SQ SCH (21:43)
[2017-05-15] MEDS ORDERED: SIMVASTATIN 20 MG TABLET PO SCH (22:00)
[2017-05-16] MEDS: IV NS 0.9% 1,000 ML IV PRN (03:33)
[2017-05-16] MEDS: KETOROLAC TROMETHAMINE INJ 30 MG/ML VIAL IV PRN ×3 (03:34→21:43)
--- NOTE | 2017-05-16 06:01 | NUR ---
RN NOTES INFORMED DR GUIDO VARGAS OF PATIENT'S BILATERAL UPPER WHEEZING. PATIENT DENIES SOB OR RESPIRATORY DISTRESS. AWAITING ANY NEW ORDERS.
[2017-05-16] MEDS ORDERED: POTASSIUM CHLORIDE 20 MEQ TAB.PRT.SR PO ONE ×2 (06:17→06:30)
[2017-05-16] MEDS ORDERED: BUMETANIDE INJ 0.25 MG/ML VIAL ONE (06:18)
[2017-05-16] MEDS ORDERED: ALBUTEROL FS 2.5 MG/3 ML VIAL.NEB NEB PRN (06:30)
[2017-05-16] MEDS ORDERED: BUMETANIDE INJ 0.25 MG/ML VIAL IV ONE (06:30)
[2017-05-16] MEDS ORDERED: IPRATROPIUM NEB FS 0.5 MG/2.5 ML AMPUL.NEB NEB PRN (06:30)
--- NOTE | 2017-05-16 06:30 | NUR ---
RN NOTES MD VISITED AND SPOKE TO THE PATIENT REGARDING PLAN OF CARE W/ NEW MEDICINE ORDERS AND STAT LAB ORDERS. ALL MEDICINE GIVEN. PATIENT IS ALERT, AWAKE, ORIENTED X3. STILL WITH WHEEZING SOUND. PATIENT VERBALIZED UNDERSTANDING.
[2017-05-16] MEDS: LEVOTHYROXINE SODIUM 75 MCG TABLET PO SCH (06:48)
[2017-05-16] MEDS: PANTOPRAZOLE 40 MG TABLET.DR PO SCH ×2 (06:48→09:57)
[2017-05-16 07:30] LABS: BASOPHILS # (AUTO) 0.2 /CMM (0.0-0.2); BASOPHILS % (AUTO) 1.4 % (0.0-2.0); EOSINOPHILS # (AUTO) 0.3 /CMM (0.0-0.7); HEMATOCRIT 34 % (33-45); HEMOGLOBIN 11.2 g/dL (11.5-14.8); LYMPHOCYTES # (AUTO) 0.9 /CMM (0.8-4.8); LYMPHOCYTES % (AUTO) 8.4 % (20.0-44.0); MEAN CORPUSCULAR HEMOGLOBIN 33 PG (26.0-33.0); MEAN CORPUSCULAR HGB CONC 33 g/dl (31.0-36.0); MEAN CORPUSCULAR VOLUME 99 fL (82-100); MONOCYTES # (AUTO) 0.6 /CMM (0.1-1.30); MONOCYTES % (AUTO) 5.4 % (2.0-12.0); NEUTROPHILS # (AUTO) 8.9 /CMM (1.8-8.9); NEUTROPHILS % (AUTO) 81.8 % (43.0-81.0); PLATELET COUNT (AUTO) 298 /CMM (150-450); RDW COEFFICIENT OF VARIATION 20.5 (11.5-15.0); RED BLOOD CELL COUNT(AUTO) 3.39 MIL/uL (4.0-5.2); WHITE BLOOD COUNT (AUTO) 10.8 K/uL (4.3-11.0)
[2017-05-16 08:00] VITALS: BP 111/65
--- NOTE | 2017-05-16 08:00 | NUR ---
MS RN INITIAL NOTE PT IN BED. A/A/O X3-4. LUNG SOUNDS CLEAR. BOWEL SOUNDS PRESENT, DIAPER CLEAN DRY AND INTACT. PT IS AMBULATORY WITH STAND BY ASSIST. PULSES PRESENT. IV PATENT AND INTACT. BED IN LOW LOCKED POSITION. CALL LIGHT WITHIN REACH. WILL CONTINUE TO MONITOR.
[2017-05-16 08:01] LABS: CALCIUM, SERUM 8.5 mg/dL (8.5-10.1); CARBON DIOXIDE 23 mmol/L (21-32); CHLORIDE 109 mmol/L (98-107); CREATININE 0.8 mg/dL (0.6-1.3); GLUCOSE 103 mg/dL (74-106); POTASSIUM 4.7 mmol/L (3.5-5.1); SODIUM SERUM 142 mmol/L (136-145); UREA NITROGEN, BLOOD 11 mg/dL (7-18)
[2017-05-16] MEDS: CHOLECALCIFEROL (VITAMIN D 3) 400 UNIT TABLET PO SCH (09:54)
[2017-05-16] MEDS: ESCITALOPRAM OXALATE (10 MG) 10 MG TABLET PO SCH (09:55)
[2017-05-16] MEDS: ASPIRIN EC 81 MG TABLET.DR PO SCH (09:55)
[2017-05-16] MEDS: ATENOLOL 50 MG TABLET PO SCH ×2 (09:56→20:24)
[2017-05-16] MEDS: ACYCLOVIR 200 MG CAPSULE PO SCH ×2 (09:57→17:02)
[2017-05-16] MEDS: VITAMIN E 400 UNIT CAPSULE PO SCH (09:57)
[2017-05-16] MEDS: GABAPENTIN 300 MG CAPSULE PO SCH ×3 (09:57→17:00)
[2017-05-16] MEDS: DOCUSATE SODIUM 100 MG CAPSULE PO SCH (18:00)
[2017-05-16] MEDS ORDERED: HYDROCODONE/APAP 5/325MG 1 EACH TABLET PO PRN (18:00)
--- NOTE | 2017-05-16 19:00 | NUR ---
MS RN CLOSING NOTES NO SIGNIFICANT CHANGES THROUGHOUT THE DAY. PATIENT STATES WITH CHANGE OF POSITION NEEDS MET. IV SL. SAFETY MEASURES MET. KEPT CLEAN AND DRY. TURNED AND REPOSITIONED Q2 AND PRN TOLERATED. HOB ELEVATED. SIDE RAILS UP AND LOCKED. BED KEPT AT LOWEST POSITION. CALL LIGHT KEPT WITHIN EASY REACH. WILL ENDORSE CONTINUITY OF CARE TO PM NURSE.
--- NOTE | 2017-05-16 19:30 | NUR ---
MS RN INITIAL NOTE RECEIVED REPORT FROM MEERA ALEJANDRO. PT IN BED. A/A/O X3-4. LUNG SOUNDS CLEAR. BOWEL SOUNDS PRESENT, DIAPER INTACT. PT IS AMBULATORY WITH STAND BY ASSIST. PULSES PRESENT. IV PATENT AND INTACT. BED IN LOW LOCKED POSITION. CALL LIGHT WITHIN REACH. WILL CONTINUE TO MONITOR.
[2017-05-16 20:00] VITALS: BP 172/73
[2017-05-16] MEDS: ENOXAPARIN SODIUM 40 MG/0.4 ML DISP.SYRIN SQ SCH (20:25)
[2017-05-16] MEDS: SIMVASTATIN 20 MG TABLET PO SCH (21:43)
--- NOTE | 2017-05-16 22:20 | NUR ---
MS RN ENTERED PTS ROOM FOR ROUNDING. PT INNER CANNULA WAS OUT, REINSERTED INNER CANNULA. PT WAS NOT DESATURATING AND IS CURRENTLY SATURATING 100%. WILL CONTINUE TO MONITOR.
[2017-05-17 04:00] VITALS: BP 154/81
[2017-05-17] MEDS: HYDROCODONE/APAP 5/325MG 1 EACH TABLET PO PRN ×3 (04:55→20:52)
[2017-05-17 08:00] VITALS: BP 147/81
[2017-05-17] MEDS: ESCITALOPRAM OXALATE (10 MG) 10 MG TABLET PO SCH (08:21)
[2017-05-17] MEDS: LEVOTHYROXINE SODIUM 75 MCG TABLET PO SCH (08:21)
[2017-05-17] MEDS: CHOLECALCIFEROL (VITAMIN D 3) 400 UNIT TABLET PO SCH (08:21)
[2017-05-17] MEDS: ATENOLOL 50 MG TABLET PO SCH ×2 (08:21→20:52)
[2017-05-17] MEDS: DOCUSATE SODIUM 100 MG CAPSULE PO SCH ×2 (08:21→17:42)
[2017-05-17] MEDS: ACYCLOVIR 200 MG CAPSULE PO SCH ×2 (08:21→17:42)
[2017-05-17] MEDS: GABAPENTIN 300 MG CAPSULE PO SCH ×3 (08:21→17:42)
[2017-05-17] MEDS: ASPIRIN EC 81 MG TABLET.DR PO SCH (08:21)
[2017-05-17] MEDS: VITAMIN E 400 UNIT CAPSULE PO SCH (08:21)
--- NOTE | 2017-05-17 11:00 | NUR ---
RN NOTE PATIENT WALKED WITH MINIMAL ASSISTANCE WITH NURSING STAFF X2 LAB IN THE [place] . PATIENT ALSO AMBULATING TO BATHROOM WITH MINIMAL ASSISTANCE
--- NOTE | 2017-05-17 18:59 | NUR ---
MS RN CLOSING NOTES NO SIGNIFICANT CHANGES THROUGHOUT THE DAY. PT HAS DISCHARGE ORDERS BUT NOT SURE IF SHE WILL BE LEAVING TONIGHT OR IN THE AM PATIENT STATES WITH CHANGE OF POSITION NEEDS MET. IV SL. SAFETY MEASURES MET. KEPT CLEAN AND DRY. TURNED AND REPOSITIONED Q2 AND PRN TOLERATED. HOB ELEVATED. SIDE RAILS UP AND LOCKED. BED KEPT AT LOWEST POSITION. CALL LIGHT KEPT WITHIN EASY REACH. WILL ENDORSE CONTINUITY OF CARE TO PM NURSE.
--- NOTE | 2017-05-17 19:30 | NUR ---
MS RN INITIAL NOTE RECEIVED REPORT FROM MEERA ALEJANDRO. PT IN A/A/O X4. FRIEND AT BEDSIDE. LUNG SOUNDS CLEAR. BOWEL SOUNDS PRESENT. IV PATENT AND INTACT. PT IS AMBULATORY WITH STAND BY ASSISTANCE. CONTINENT TO URINE AND STOOL. BED IN LOW LOCKED POSITION. CALL LIGHT WITHIN REACH. WILL CONTINUE TO MONITOR.
[2017-05-17 20:00] VITALS: BP 131/72
--- NOTE | 2017-05-17 20:18 | NUR ---
RN NOTE RN SPOKE WITH CHARGE NURSE DELISA IN REGARDS TO D/C FOR PATIENT PATIENT STATES SON WILL COME IN THE AM TO PICK HER UP DELISA STATES THAT THIS IS OK. . THIS INFORMATION WAS PROVIDED TO THE LAW WRITER RN AND ALSO THE NIGHTSHIFT CHARGE VIA CHARGE NURSE DELISA AND dayshift rn . nursing staff will follow patient son contacted by nightshift rn in regard to plan of care
[2017-05-17] MEDS: ENOXAPARIN SODIUM 40 MG/0.4 ML DISP.SYRIN SQ SCH (20:56)
[2017-05-17] MEDS: SIMVASTATIN 20 MG TABLET PO SCH (21:34)
[2017-05-18] MEDS: HYDROCODONE/APAP 5/325MG 1 EACH TABLET PO PRN ×2 (02:48→13:25)
[2017-05-18 04:00] VITALS: BP 155/71
[2017-05-18] MEDS: PANTOPRAZOLE 40 MG TABLET.DR PO SCH (07:04)
[2017-05-18] MEDS: LEVOTHYROXINE SODIUM 100 MCG TABLET PO SCH (07:04)
[2017-05-18 08:00] VITALS: BP 160/70
--- NOTE | 2017-05-18 08:04 | NUR ---
RN INITIAL NOTES PT IS IN BED, NO ACUTE DISTRESS NOTED, A/O X4, ON NC2L, SATURATING WELL. SKIN INTACT, IV IS PATENT. L WRIST 20G, NO S/SX OF INFECTION. WITH BRP. PT WILL BE DISCHARGED TODAY, BUT WANTED TO SPEAK WITH [facility] - SPECIAL EDUCATION PARAPROFESSIONAL, CALLED AND LEFT A VM. CALL LIGHT WITHIN REACH.
[2017-05-18] MEDS: VITAMIN E 400 UNIT CAPSULE PO SCH (09:29)
[2017-05-18] MEDS: ESCITALOPRAM OXALATE (10 MG) 10 MG TABLET PO SCH (09:29)
[2017-05-18] MEDS: CHOLECALCIFEROL (VITAMIN D 3) 400 UNIT TABLET PO SCH (09:29)
[2017-05-18] MEDS: DOCUSATE SODIUM 100 MG CAPSULE PO SCH ×2 (09:29→17:26)
[2017-05-18] MEDS: ACYCLOVIR 200 MG CAPSULE PO SCH ×2 (09:29→17:26)
[2017-05-18] MEDS: ASPIRIN EC 81 MG TABLET.DR PO SCH (09:30)
[2017-05-18] MEDS: ATENOLOL 50 MG TABLET PO SCH ×2 (09:31→22:15)
[2017-05-18] MEDS: GABAPENTIN 300 MG CAPSULE PO SCH ×3 (09:31→17:26)
[2017-05-18 16:00] VITALS: BP 130/71
[2017-05-18 20:00] VITALS: BP 130/71
--- NOTE | 2017-05-18 20:14 | NUR ---
RN CLOSING NOTES NO SIGNIFICANT CHANGES 12 HOUR AM SHIFT. ALL MEDS GIVEN ORDERED, PT BRP AND ASSISTED PT WITH ADLS. ALL SAFETY MEASURES MAINTAINED, ALL NEEDS MET, CALL LIGHT WITHIN REACH.
--- NOTE | 2017-05-18 20:40 | NUR ---
RN INITIAL NOTES PT IS IN BED, NO ACUTE DISTRESS NOTED, A/O X4, ON NC2L, SATURATING WELL. SKIN INTACT, IV IS PATENT. L WRIST 20G, NO S/SX OF INFECTION. WITH BRP, AWARE OF SAFETY MEASURES, EXPLAINED THE RISKS AND BENEFIT OF USE OF CALL LIGHT FOR ASSIST BRP, PT AND SON CONCERNED ABOUT DISCHARGE PLANING, SON STATES ALREADY [facility] READY TO RECEIVE PT, AND REQUESTING FOR CT RESULT ON CD TO BE SENT WITH PT'S RECORDS, SON WILL CONVERTING TECHNICIAN CD AT [facility].
[2017-05-18] MEDS: SIMVASTATIN 20 MG TABLET PO SCH (22:15)
[2017-05-18] MEDS: ENOXAPARIN SODIUM 40 MG/0.4 ML DISP.SYRIN SQ SCH (22:15)
[2017-05-19] MEDS: HYDROCODONE/APAP 5/325MG 1 EACH TABLET PO PRN ×3 (00:09→16:34)
--- NOTE | 2017-05-19 00:30 | NUR ---
PT C/O OF PAIN AFTER BRP, PELVIC AREA 05/15, NORCO 5/325MG 1 TAB GIVEN REQUESTED BY PT, AT 0106 PT REQUESTED FOR SLEEPING MEDICATION, RISK AND BENEFIT EXPLAINED.
--- NOTE | 2017-05-19 06:14 | NUR ---
RN CLOSING NOTES PT ENDORSED IN BED, NO ACUTE DISTRESS NOTED, A/O X4, ON NC2L, SATURATING WELL. SKIN INTACT, IV IS PATENT. L WRIST 20G, NO S/SX OF INFECTION. WITH BRP, AWARE OF SAFETY MEASURES, EXPLAINED THE RISKS AND BENEFIT OF USE OF CALL LIGHT FOR ASSIST BRP, PT AND SON CONCERNED ABOUT DISCHARGE PLANING, SON STATES ALREADY [facility] READY TO RECEIVE PT, AND REQUESTING FOR CT RESULT ON CD TO BE SENT WITH PT'S RECORDS, SON WILL AQUACULTURE PROGRAM DIRECTOR CD AT [facility].
[2017-05-19] MEDS: PANTOPRAZOLE 40 MG TABLET.DR PO SCH (07:46)
[2017-05-19] MEDS: LEVOTHYROXINE SODIUM 100 MCG TABLET PO SCH (07:46)
[2017-05-19 08:00] VITALS: BP 160/66
[2017-05-19] MEDS: ACYCLOVIR 200 MG CAPSULE PO SCH ×2 (08:34→16:34)
[2017-05-19] MEDS: ASPIRIN EC 81 MG TABLET.DR PO SCH (08:34)
[2017-05-19] MEDS: CHOLECALCIFEROL (VITAMIN D 3) 400 UNIT TABLET PO SCH (08:34)
[2017-05-19] MEDS: DOCUSATE SODIUM 100 MG CAPSULE PO SCH ×2 (08:34→16:34)
[2017-05-19] MEDS: GABAPENTIN 300 MG CAPSULE PO SCH ×3 (08:34→16:34)
[2017-05-19] MEDS: VITAMIN E 400 UNIT CAPSULE PO SCH (08:34)
[2017-05-19] MEDS: ESCITALOPRAM OXALATE (10 MG) 10 MG TABLET PO SCH (08:34)
[2017-05-19] MEDS: ATENOLOL 50 MG TABLET PO SCH (08:35)
[2017-05-19 16:00] VITALS: BP 121/75
--- NOTE | 2017-05-19 18:30 | NUR ---
RN NOTE PT DISCHARGED TO [facility], REPORT GIVEN TO JAVON SORIANO, PT STABLE, LEFT VIA AMBULANCE, FAMILY AWARE, BELONGINGS LIST SIGNED, AND PROVIDED TO PT, EXIT CARE DONE, DISCHARGE INSTRUCTIONS PROVIDED TO PT, TEACHING DONE TO PT, PT VERBALIZED UNDERSTANDING, IV REMOVED, ID BAND REMOVED.
== END 2017-05-19 18:56 | disposition home health service (06) | DRG 535 ==
LOC: ER 16:18 → MEDSG1 18:55
PROVIDERS: ADMIT Nurse Practitioner Acute Care; ATTEND Nurse Practitioner Acute Care
DX: S32.82XA Multiple fractures of pelvis without disruption of pelvic ring, initial encounter for closed fracture (principal); R53.2 Functional quadriplegia; M80.08XA Age-related osteoporosis with current pathological fracture, vertebra(e), initial encounter for fracture; I10 Essential (primary) hypertension; J44.9 Chronic obstructive pulmonary disease, unspecified; E05.90 Thyrotoxicosis, unspecified without thyrotoxic crisis or storm; Z85.3 Personal history of malignant neoplasm of breast; Z79.899 Other long term (current) drug therapy; Z90.10 Acquired absence of unspecified breast and nipple; Z79.82 Long term (current) use of aspirin; I25.10 Atherosclerotic heart disease of native coronary artery without angina pectoris; W19.XXXA Unspecified fall, initial encounter; Y92.9 Unspecified place or not applicable; Z87.310 Personal history of (healed) osteoporosis fracture; G89.11 Acute pain due to trauma; E78.5 Hyperlipidemia, unspecified; E86.0 Dehydration
CPT/HCPCS: 36415; 71010-TC; 72131-TC; 72192-TC; 80048-TC; 80053-TC; 80061-TC; 81000-TC; 82306; 83735-TC; 84100-TC; 84443-TC; 84484-TC; 85025-TC; 85730-TC; 87081-TC; 97001-TC; 97116-TC; 97530-TC; A4606; J1650; J1885; J2270; J3490; J7030; J7040; Z7610

== ENCOUNTER 2017-06-27 14:50 | Inpatient (IN) | payer OTHER ==
[~2017-06-27] VITALS: Ht 157.5 cm; Wt 61.2 kg
[2017-06-27] VITALS (8 sets, daily range): BP systolic 99–152; BP diastolic 51–80
[~2017-06-27 14:50] MED LIST changes: -HYDR-552 PO; +IBUP-1955 PO
--- NOTE | 2017-06-27 14:56 | NUR ---
JAYDEN RENDON TO ER BED 08. HERE FOR ABNORMAL LAB FOR LOW HEMOGLOBIN. GOWNED AND PLACED ON MONITOR. AWAITING MD AGUIRRE.
--- NOTE | 2017-06-27 15:09 | NUR ---
DR SEGOVIA AT BEDSIDE FOR EVAL.
--- NOTE | 2017-06-27 15:29 | NUR ---
SUPERVISOR SAMPLE PREPARATION AT BEDSIDE FOR BLOOD DRAW.
[2017-06-27 15:37] LABS: BASOPHILS # (AUTO) 0.2 /CMM (0.0-0.2); BASOPHILS % (AUTO) 1.4 % (0.0-2.0); EOSINOPHILS # (AUTO) 1.1 /CMM (0.0-0.7); EOSINOPHILS % (AUTO) 8.9 % (0.0-6.0); HEMATOCRIT 22 % (33-45); HEMOGLOBIN 7.4 g/dL (11.5-14.8); LYMPHOCYTES # (AUTO) 0.5 /CMM (0.8-4.8); LYMPHOCYTES % (AUTO) 3.9 % (20.0-44.0); MEAN CORPUSCULAR HEMOGLOBIN 31 PG (26.0-33.0); MEAN CORPUSCULAR HGB CONC 34 g/dl (31.0-36.0); MEAN CORPUSCULAR VOLUME 93 fL (82-100); MONOCYTES # (AUTO) 0.7 /CMM (0.1-1.30); MONOCYTES % (AUTO) 6.3 % (2.0-12.0); NEUTROPHILS # (AUTO) 9.3 /CMM (1.8-8.9); NEUTROPHILS % (AUTO) 79.5 % (43.0-81.0); PLATELET COUNT (AUTO) 276 /CMM (150-450); RDW COEFFICIENT OF VARIATION 20.5 (11.5-15.0); RED BLOOD CELL COUNT(AUTO) 2.36 MIL/uL (4.0-5.2); WHITE BLOOD COUNT (AUTO) 11.8 K/uL (4.3-11.0)
[2017-06-27 15:45] LABS: CALCIUM, SERUM 7.7 mg/dL (8.5-10.1); CARBON DIOXIDE 26 mmol/L (21-32); CHLORIDE 97 mmol/L (98-107); CREATININE 1.3 mg/dL (0.6-1.3); GLUCOSE 103 mg/dL (74-106); POTASSIUM 3.9 mmol/L (3.5-5.1); SODIUM SERUM 133 mmol/L (136-145); UREA NITROGEN, BLOOD 12 mg/dL (7-18)
[2017-06-27 15:51] LABS: ALANINE AMINOTRANSFERASE 13 U/L (12-78); ALBUMIN 1.5 g/dL (3.4-5.0); ALKALINE PHOSPHATASE 68 U/L (46-116); ASPARTATE AMINOTRANSFERASE 30 U/L (15-37); BILIRUBIN,DIRECT 0.1 mg/dL (0.0-0.2); BILIRUBIN,TOTAL 0.2 mg/dL (0.2-1.0); TOTAL PROTEIN, SERUM 5.4 g/dL (6.4-8.2)
[2017-06-27 15:55] LABS: IRON, SERUM 22 ug/dl (50-175); TOTAL IRON BINDING CAPACITY 155 ug/dl (250-450)
[2017-06-27 15:57] LABS: INR 1.08 (0.87-1.13); PROTHROMBIN TIME 11.2 SECS (9.5-12.7)
--- NOTE | 2017-06-27 16:08 | NUR ---
PAGED DR PARSON FOR PANEL ADMISSION
[2017-06-27 16:13] LABS: FERRITIN 644 ng/mL (8-388)
[2017-06-27] MEDS ORDERED: ONDANSETRON 4 MG TAB.RAPDIS ONE (16:31)
[2017-06-27] MEDS ORDERED: AMIN30LI2 PO (16:46)
[2017-06-27] MEDS ORDERED: ASCO500T9 PO (16:46)
[2017-06-27] MEDS ORDERED: HEPA500014 SQ (16:46)
[2017-06-27] MEDS ORDERED: METO50TA3 PO (16:46)
[2017-06-27] MEDS ORDERED: FAMO20TA8 PO (16:46)
[2017-06-27] MEDS ORDERED: FLUT1DIS3 IH (16:46)
[2017-06-27] MEDS ORDERED: MAGN400O6 PO (16:46)
[2017-06-27] MEDS ORDERED: MULT-213 PO (16:46)
[2017-06-27] MEDS ORDERED: FERR-58 PO (16:46)
[2017-06-27] MEDS ORDERED: ATOR10TA PO (16:46)
[2017-06-27] MEDS ORDERED: POTA10CA43 PO (16:46)
[2017-06-27] MEDS ORDERED: BISA10SU8 RC (16:46)
[2017-06-27] MEDS ORDERED: FOLI1TAB16 PO (16:46)
[2017-06-27] MEDS ORDERED: ACET-868 PO (16:46)
[2017-06-27] MEDS ORDERED: FURO-144 PO (16:46)
[2017-06-27] MEDS ORDERED: NA P133E RC (16:46)
[2017-06-27] MEDS ORDERED: CEFT2VIA13 IV (16:48)
[2017-06-27] MEDS ORDERED: IPRA3AMP IH ×2 (16:50)
[2017-06-27] MEDS ORDERED: DOCU-170 PO (16:50)
--- NOTE | 2017-06-27 17:43 | NUR ---
REPORT GIVEN TO MICHAEL. PT TRANSFERED TO FLOOR. STABLE.
--- NOTE | 2017-06-27 17:50 | NUR ---
RN NOTES RECEIVED PT FROM ER [facility]IA [facility] WITH DIAGNOSIS OF ANEMIA, UNDER THE CARE OF DR. PARSON. DAUGHTER IN LAW AT BEDSIDE. PT A&OX3, RESTING IN BED, ON NASAL CANNULA 2L, 98% NO DISTRESS NOTED. BILATERAL WHEEZES HEARD UPON AUSCULTATION OF LUNGS . ON TELE MONITOR SR IN THE 80S. ELIJAH PICC LINE IV SITE DRESSING DRY AND INTACT. R WRIST SOFT BRACE FROM [employer] IN PLACE. L WOUND ON SACRAL AREA, PICTURE IN CHART. VITAL SIGNS TAKEN, HOSPITAL ORIENTATION DONE. AWAITING ADMITTING ORDERS FROM DR. PARSON. BED LOCKED AND IN LOWEST POSITION, CALL LIGHT WITHIN REACH, SIDE RAILS UPX3, ISOFLEX PLACED. WILL CONT TO MONITOR.
[2017-06-27] MEDS ORDERED: NA PHOS,M-B/NA PHOS,DI-BA 1 EA ENEMA RC PRN (18:00)
[2017-06-27] MEDS ORDERED: BISACODYL SUPP (10 MG) 10 MG/SUPP.RECT SUPP.RECT RC PRN (18:00)
[2017-06-27] MEDS ORDERED: MAGNESIUM HYDROXIDE 30 ML UDC PO PRN ×2 (18:00)
[2017-06-27] MEDS ORDERED: ONDANSETRON HCL/PF 4 MG/2 ML VIAL IVP PRN (18:00)
[2017-06-27] MEDS: IPRATROPIUM NEB FS 0.5 MG/2.5 ML AMPUL.NEB NEB SCH ×2 (18:30→23:30)
--- NOTE | 2017-06-27 18:37 | NUR ---
RN NOTES CONSENT FOR BLOOD TRANSFUSION OBTAINED.
--- NOTE | 2017-06-27 18:58 | NUR ---
RN NOTES PT HAVING DINNER IN BED WITH MINIMUM ASSISTANCE, RESTING COMFORTABLY. WILL ENDORSE TO ONCOMING SHIFT.
--- NOTE | 2017-06-27 19:26 | NUR ---
RN NOTES SPOKE WITH ARSENIO POZO TO ORDER 1 UNIT OF BLOOD. ORDER IN THE COMPUTER. [place] HOLD NOTIFIED.
--- NOTE | 2017-06-27 19:30 | NUR ---
HOME THEATER INSTALLER INITIAL NOTE PT RECEIVED IN NO ACUTE DISTRESS. PT IS A/O X 3 WITH SON AT BEDSIDE. ON 2LPM 02 VIA NC. ON TELE WITH SR 89. PT HAS RIGHT WRIST SOFT CAST. ELIJAH PICC LINE IS CLEAN DRY AND INTACT. PREVIOUS SHIFT RN STATED THAT MD ORDERED 1 UNIT OF PACKED RED BLOOD CELLS. WILL ADMINISTER WHEN READY. PT IS IN COMFORTABLE POSITION AND WILL MONITOR FOR CHANGES.
[2017-06-27] MEDS ORDERED: IV NS 0.9% 250 ML BAG IV ONE (20:30)
[2017-06-27] MEDS ORDERED: IV NS 0.9% 250 ML IV ONE (20:30)
--- NOTE | 2017-06-27 21:00 | NUR ---
RN SHELLEY PARSON MADE HIS WAY INTO PT ROOM TO SPEAK TO PT AND SON. STATED THAT "WE WILL GET ALL XRAYS DONE ONCE JUVENILE COUNSELOR HAS SEEN THE PT". 1 UNIT OF BLOOD ADMINISTRATION HAS INITIATED. WILL ASSESS PT ACCORDINGLY.
[2017-06-27] MEDS: ATORVASTATIN 10 MG TABLET PO SCH (22:55)
[2017-06-27] MEDS: ALBUTEROL FS 2.5 MG/0.5 ML VIAL.NEB NEB SCH (23:30)
[2017-06-28] VITALS: BP 147/72
[2017-06-28] MEDS: CEFTRIAXONE 2 G in IV D5W 100 ML IV SCH ×2 (00:45→20:43)
[2017-06-28] MEDS: MAG HYDROX/AL HYDROX/SIMETH 30 ML UDC PO PRN ×2 (01:15→09:10)
[2017-06-28 04:00] VITALS: BP 146/62
--- NOTE | 2017-06-28 05:49 | NUR ---
RN NOTE BLLOD DRAW FOR VANCO WILL BE DONE AT 0800. UNABLE TO RETRIEVE BLOOD FROM PICC LINE
--- NOTE | 2017-06-28 05:50 | NUR ---
NEUROBIOLOGIST CLOSING NOTE PT REMAINS IN NO ACUTE DISTRESS. PT DID NOT SLEEP MUCH LAST NIGHT AND IS SLIGHTLY CONFUSED/OVERLY TIRED. PT IS CURRENTLY WHEEZING WITH A HISTORY OF COPD WELL HEART FAILURE. PT HAS TKO RUNNING THROUGH ELIJAH PICC LINE. ONE UNIT OF BLOOD WAS TRANSFUSED EARLIER DURING THE SHIFT. COMFORT AND SAFETY MEASURES WERE PLACED DURING THE SHIFT. WILL ENDORSE CARE TO AM NURSE.
[2017-06-28 06:55] LABS: BASOPHILS % (AUTO) 0.3 % (0.0-2.0); HEMATOCRIT 27 % (33-45); HEMOGLOBIN 9.2 g/dL (11.5-14.8); LYMPHOCYTES # (AUTO) 0.5 /CMM (0.8-4.8); LYMPHOCYTES % (AUTO) 3.7 % (20.0-44.0); MEAN CORPUSCULAR HEMOGLOBIN 31 PG (26.0-33.0); MEAN CORPUSCULAR HGB CONC 34 g/dl (31.0-36.0); MEAN CORPUSCULAR VOLUME 92 fL (82-100); MONOCYTES # (AUTO) 0.7 /CMM (0.1-1.30); MONOCYTES % (AUTO) 6.2 % (2.0-12.0); NEUTROPHILS # (AUTO) 9.8 /CMM (1.8-8.9); NEUTROPHILS % (AUTO) 81.8 % (43.0-81.0); PLATELET COUNT (AUTO) 262 /CMM (150-450); RDW COEFFICIENT OF VARIATION 21.2 (11.5-15.0); RED BLOOD CELL COUNT(AUTO) 2.94 MIL/uL (4.0-5.2)
[2017-06-28 07:14] LABS: CALCIUM, SERUM 7.6 mg/dL (8.5-10.1); CARBON DIOXIDE 27 mmol/L (21-32); CHLORIDE 100 mmol/L (98-107); CREATININE 1.2 mg/dL (0.6-1.3); GLUCOSE 87 mg/dL (74-106); MAGNESIUM 1.6 mg/dL (1.8-2.4); PHOSPHORUS 3.3 mg/dL (2.5-4.9); POTASSIUM 3.9 mmol/L (3.5-5.1); SODIUM SERUM 135 mmol/L (136-145); UREA NITROGEN, BLOOD 12 mg/dL (7-18)
--- NOTE | 2017-06-28 07:47 | NUR ---
RN INITIAL NOTE REPORT RECEIVED FROM SHANE PM SHIFT FOR PATRICE. PT A/O X2-[address] SR. PICC LINE ELIJAH PATENT FLUSHED AND INTACT. NC 2L NO C/O SOB. PAIN 0/10S/P 1 UNT PRC. PT RESTING COMFORTABLY. WILL CONTINUE TO MONITOR CLOSELY. ALL SAFETY MEASURES IN PLACE.
[2017-06-28 08:00] VITALS: BP 150/70
[2017-06-28] MEDS: ALBUTEROL FS 2.5 MG/0.5 ML VIAL.NEB NEB SCH ×3 (08:03→23:18)
[2017-06-28] MEDS: IPRATROPIUM NEB FS 0.5 MG/2.5 ML AMPUL.NEB NEB SCH ×3 (08:03→23:18)
[2017-06-28] MEDS: LEVOTHYROXINE SODIUM 75 MCG TABLET PO SCH (08:09)
[2017-06-28] MEDS: DOCUSATE SODIUM 100 MG CAPSULE PO SCH ×2 (08:09→16:47)
[2017-06-28] MEDS: FUROSEMIDE 40 MG TABLET PO SCH (08:10)
[2017-06-28] MEDS: MULTIVIT, IRON, MIN NO. 8, FA 1 TAB PO SCH (08:10)
[2017-06-28] MEDS: ESCITALOPRAM OXALATE (10 MG) 10 MG TABLET PO SCH (08:10)
[2017-06-28] MEDS: VITAMIN E 400 UNIT CAPSULE PO SCH (08:10)
[2017-06-28] MEDS: FAMOTIDINE (20 MG) 20 MG TABLET PO SCH (08:10)
[2017-06-28] MEDS: ASCORBIC ACID 500 MG TABLET PO SCH (08:10)
[2017-06-28] MEDS: FOLIC ACID 1 MG TABLET PO SCH (08:11)
[2017-06-28] MEDS: POTASSIUM CHLORIDE 10 MEQ TABLET.SA PO SCH (08:11)
[2017-06-28] MEDS: FERROUS SULFATE (325 MG) 325 MG/TAB TABLET PO SCH ×2 (08:11→16:47)
[2017-06-28] MEDS: METOPROLOL TARTRATE 50 MG TABLET PO SCH ×2 (08:11→16:47)
[2017-06-28] MEDS: FLUTICASONE/VILANTEROL 1 EACH BLST.W.DEV IH SCH (08:12)
[2017-06-28] MEDS: Z GUARD REMEDY 2 OZ OINT TP PRN (08:13)
[2017-06-28] MEDS: PROSOURCE / PROSTAT (PYXIS) 30 ML UDC PO SCH (08:14)
[2017-06-28] MEDS ORDERED: Medication Not On Formulary EA (Ceftriaxone Sodium (Rocephin) 2 GM) IV SCH (09:00)
[2017-06-28] MEDS: ACETAMINOPHEN 325 MG TABLET PO PRN (09:10)
[2017-06-28 09:44] LABS: CHOLESTEROL 104 mg/dL (<200); HDL CHOLESTEROL 37 mg/dL (40-60); LDL 50 mg/dL (0-99); TRIGLYCERIDES 92 mg/dL (30-150)
[2017-06-28] MEDS: Magnesium 1GM/D5W 100ML PREMIX 100 ML IV SCH ×2 (11:09→12:17)
--- NOTE | 2017-06-28 11:20 | NUR ---
WOUND CARE CONSULT: PT PRESENTS WITH SACRAL STAGE 2 ULCER AND RT WRIST OPEN WOUNDS, PRESENT ON ADMISSION. RECOMMEND SURGICAL FOLLOW UP FOR RT WRIST. PT ON PATTI ISOFLEX LOW AIRLOSS BED. PT TO BE TURNED AND REPOSITIONED EVERY 2 HRS PT CONDITION PERMITS, HEELS FLOATED. ALL SKIN PROTECTION AND WOUND RECOMMENDATIONS DISCUSSED WITH NURSING STAFF. WILL SEE PRN. MORELOS IN AGREEMENT WITH PLAN OF CARE. Addendum: 06/28/17 at 1123 by FAUSTINO QUINONES [id number] Amended: Links added.
[2017-06-28] MEDS ORDERED: HYDROGEL DRESSING 90 GM TUBE TP SCH (11:30)
[2017-06-28] MEDS ORDERED: HYDROGEL DRESSING 90 GM TUBE TP PRN (11:30)
--- NOTE | 2017-06-28 12:04 | NUR ---
RN NOTE SPOKE TO DR. PARSON PT HAD X3 BM. ORDERED IMODIUM PO PRN.
[2017-06-28] MEDS: LOPERAMIDE HCL (2 MG CAP) 2 MG CAPSULE PO PRN (12:19)
[2017-06-28] MEDS: NEOMY SULF/BACITRAC ZN/POLY 15 GM TUBE TP SCH (15:19)
[2017-06-28] MEDS: COD LIVER OIL/ZINC OXIDE 120 GM TUBE TP SCH (15:20)
[2017-06-28 16:00] VITALS: BP_SYST 142; BP_SYST 150; BP_DIAS 69; BP_DIAS 70
--- NOTE | 2017-06-28 19:00 | NUR ---
RN CLOSING NOTE REPORT GIVEN TO LINA PM SHIFT FOR PATRICE. PT A/O X2-3 TELE SR. PICC LINE ELIJAH PATENT FLUSHED AND INTACT. NC 2L NO C/O SOB. PAIN 0/10. PT RESTING COMFORTABLY. AWAITING DR. RAYGOZA FOR HEMO CONSULT. FAMILY AWARE. PT STABLE THROUGH OUT SHIFT. ALL SAFETY MEASURES IN PLACE.
[2017-06-28 20:00] VITALS: BP 146/67
--- NOTE | 2017-06-28 20:53 | NUR ---
RN NOTES S/E BY DR. RAYGOZA WITH NEW ORDER. SPOKE TO THE SON VIA PHONE. PT IS AOX2-3 ABLE TO MAKE KNOWN NEEDS. WITH [place] AT TIMES. SR HR 80'S ONT EEL MONITOR. DENIES PAIN. WARMTH TO TOUCH. AFEBRILE. IV SITE ON ELIJAH PICC LINE INTACT AND PATENT WITH GOOD BLOOD RETURN. OFFLOADED EXT WITH PILLOWS. RIGHT HAND SPLINT KEPT IN PLACED. KEPT PT CLEAN AND DRY. WILL CONTINUE TO MONITOR.
[2017-06-28] MEDS: ATORVASTATIN 10 MG TABLET PO SCH (21:25)
[2017-06-28] MEDS: IPRATROPIUM NEB FS 0.5 MG/2.5 ML AMPUL.NEB NEB PRN (21:31)
[2017-06-28] MEDS: ALBUTEROL FS 2.5 MG/0.5 ML VIAL.NEB NEB PRN (21:31)
--- NOTE | 2017-06-28 21:35 | NUR ---
GIVEN PRN BREATHING TX.
--- NOTE | 2017-06-28 21:35 | NUR ---
RN NOTES PT NOTED WITH INCREASED WHEEZING . CALLED RT FOR PRN BREATHING TX.
[2017-06-29] MEDS: ZOLPIDEM TARTRATE 5 MG TABLET PO PRN ×2 (01:11→23:26)
--- NOTE | 2017-06-29 01:15 | NUR ---
RN NOTES NOTED PT WITH INABILITY TO SLEEP REPOSITIONED AND PRN MEDICINE GIVEN AND PT REQUESTED EFFECTIVE.
[2017-06-29 04:00] VITALS: BP 160/73
[2017-06-29] MEDS: IPRATROPIUM NEB FS 0.5 MG/2.5 ML AMPUL.NEB NEB PRN ×2 (04:43→19:24)
[2017-06-29] MEDS: ALBUTEROL FS 2.5 MG/0.5 ML VIAL.NEB NEB PRN ×2 (04:43→19:24)
[2017-06-29] MEDS: HYDROCODONE/APAP 5/325MG 1 EACH TABLET PO PRN (05:40)
[2017-06-29 06:35] LABS: BASOPHILS # (AUTO) 0.1 /CMM (0.0-0.2); BASOPHILS % (AUTO) 0.3 % (0.0-2.0); EOSINOPHILS # (AUTO) 1.2 /CMM (0.0-0.7); HEMATOCRIT 28 % (33-45); HEMOGLOBIN 9.4 g/dL (11.5-14.8); LYMPHOCYTES # (AUTO) 0.5 /CMM (0.8-4.8); MEAN CORPUSCULAR HEMOGLOBIN 31 PG (26.0-33.0); MEAN CORPUSCULAR HGB CONC 34 g/dl (31.0-36.0); MEAN CORPUSCULAR VOLUME 92 fL (82-100); MONOCYTES # (AUTO) 0.7 /CMM (0.1-1.30); MONOCYTES % (AUTO) 4.1 % (2.0-12.0); NEUTROPHILS # (AUTO) 14.2 /CMM (1.8-8.9); NEUTROPHILS % (AUTO) 85.6 % (43.0-81.0); PLATELET COUNT (AUTO) 313 /CMM (150-450); RDW COEFFICIENT OF VARIATION 20.4 (11.5-15.0); RED BLOOD CELL COUNT(AUTO) 3.06 MIL/uL (4.0-5.2); WHITE BLOOD COUNT (AUTO) 16.6 K/uL (4.3-11.0)
[2017-06-29 06:36] LABS: CARBON DIOXIDE 28 mmol/L (21-32); CHLORIDE 100 mmol/L (98-107); CREATININE 1.3 mg/dL (0.6-1.3); GLUCOSE 106 mg/dL (74-106); MAGNESIUM 2.2 mg/dL (1.8-2.4); POTASSIUM 3.7 mmol/L (3.5-5.1); SODIUM SERUM 136 mmol/L (136-145); UREA NITROGEN, BLOOD 15 mg/dL (7-18)
[2017-06-29 06:46] LABS: THYROID STIMULATING HORMONE 36.987 uIU/mL (0.358-3.74)
--- NOTE | 2017-06-29 07:16 | NUR ---
RN NOTES PT ASLEEP WT THIS TIME. NO ACUTE RESP DISTRESS. AFEBRILE. O2 2LPM VIA NC TOLERATED WELL SATING 92% AT THIS TIME SINCE THE PATIENT CALM. KEPT PT CLEAN AND DRY. ENDORSED CONTINUITY OF CARE TO AM NURSE.
[2017-06-29] MEDS: IPRATROPIUM NEB FS 0.5 MG/2.5 ML AMPUL.NEB NEB SCH ×3 (07:37→22:37)
[2017-06-29] MEDS: ALBUTEROL FS 2.5 MG/0.5 ML VIAL.NEB NEB SCH ×3 (07:38→22:37)
[2017-06-29 08:00] VITALS: BP 141/62
[2017-06-29] MEDS: LEVOTHYROXINE SODIUM 75 MCG TABLET PO SCH (08:17)
[2017-06-29] MEDS: FERROUS SULFATE (325 MG) 325 MG/TAB TABLET PO SCH ×2 (08:17→17:23)
[2017-06-29] MEDS: ESCITALOPRAM OXALATE (10 MG) 10 MG TABLET PO SCH (08:17)
[2017-06-29] MEDS: DOCUSATE SODIUM 100 MG CAPSULE PO SCH ×2 (08:17→17:23)
[2017-06-29] MEDS: FOLIC ACID 1 MG TABLET PO SCH (08:17)
[2017-06-29] MEDS: ASCORBIC ACID 500 MG TABLET PO SCH (08:17)
[2017-06-29] MEDS: FAMOTIDINE (20 MG) 20 MG TABLET PO SCH (08:17)
[2017-06-29] MEDS: MULTIVIT, IRON, MIN NO. 8, FA 1 TAB PO SCH (08:17)
[2017-06-29] MEDS: VITAMIN E 400 UNIT CAPSULE PO SCH (08:19)
[2017-06-29] MEDS: POTASSIUM CHLORIDE 10 MEQ TABLET.SA PO SCH (08:19)
[2017-06-29] MEDS: FUROSEMIDE 40 MG TABLET PO SCH (08:20)
[2017-06-29] MEDS: METOPROLOL TARTRATE 50 MG TABLET PO SCH ×2 (08:20→17:23)
[2017-06-29] MEDS: COD LIVER OIL/ZINC OXIDE 120 GM TUBE TP SCH (08:22)
[2017-06-29] MEDS: NEOMY SULF/BACITRAC ZN/POLY 15 GM TUBE TP SCH (08:22)
[2017-06-29] MEDS: PROSOURCE / PROSTAT (PYXIS) 30 ML UDC PO SCH (08:26)
[2017-06-29] MEDS ORDERED: HYDROGEL DRESSING 90 GM TUBE TP SCH (09:00)
[2017-06-29] MEDS: FLUTICASONE/VILANTEROL 1 EACH BLST.W.DEV IH SCH (11:39)
[2017-06-29] MEDS ORDERED: AZITHROMYCIN 250 MG TABLET PO ONE (12:00)
[2017-06-29 12:57] LABS: APPEARANCE,URINE CLOUDY (CLEAR); BILIRUBIN,URINE NEGATIVE (NEGATIVE); BLOOD, URINE 3+ Ery/uL (NEGATIVE); COLOR,URINE YELLOW (YELLOW); KETONES,URINE NEGATIVE (NEGATIVE); LEUKOCYTE ESTERASE ,URINE NEGATIVE (NEGATIVE); NITRITE, URINE NEGATIVE (NEGATIVE); PROTEIN,URINE TRACE mg/dl (NEGATIVE); UGLUCOSE NEGATIVE (NEGATIVE); UROBILINOGEN,URINE 0.2 EU/dL (0.2)
[2017-06-29 13:02] LABS: BACTERIA,URINE Few /HPF (None Seen); RBC,URINE 81-100 /HPF (0-2); SQUAMOUS EPITHELIAL CELL,UR Few /HPF (None Seen); YEAST,URINE Few /HPF (None Seen)
[2017-06-29 16:00] VITALS: BP 138/74
--- NOTE | 2017-06-29 19:20 | NUR ---
RN NOTES PT IS AWAKE ALERT ORIENTED X 2-3 WITH PERIODS OF FORGETFUL. WARMTH TOT OUCH. AFEBRILE. WHEEZING SOUND HEARD. RT AT BEDSIDE AND GIVING BREATHING TREATMENT. PT DENIES PAIN. PT STATED THAT SHES FINE AND NOT HAVING A HARD TIME BREATHING. O2 2LPM VIA NC WILL CONTINUE . SATING 92%. KEPT HOB ELEVATED. KEPT PT CLEAN AND DRY AND COMFORTABLE IN BED. WILL MONITORED FREQ. CALL LIGHT KEPT WITHIN EASY REACH.
--- NOTE | 2017-06-29 19:20 | NUR ---
RN NOTES PT AWAKE ON BED AOX 2-3 EASILY FORGETS AND PERIODS OF CONFUSION WITH O2 2LPM VIA NC SATING 94% NO ACTIVE BLEEDING NOTED. IV SITE ON ELIJAH PICC LINE INTACT. FLUSHED WELL. REPOSITIONED PATIENT COMFORTABLE. KEPT PT CLEAN AND DRY. REMINDED TO USED CALL LIGHT WHEN NEED ASSISTANCE. WILL CONTINUE TO MONITOR.
[2017-06-29 20:00] VITALS: BP 158/72
[2017-06-29] MEDS: CEFTRIAXONE 2 G in IV D5W 100 ML IV SCH (21:18)
[2017-06-29] MEDS: ATORVASTATIN 10 MG TABLET PO SCH (21:18)
[2017-06-30 04:00] VITALS: BP 167/77
--- NOTE | 2017-06-30 06:39 | NUR ---
RN NOTES PT ASLEEP WELL THIS TIME FOR ABOUT 4 HOURS. STILL WITH EPISODE OF WHEEZING AND RESTLESSNESS WHEN AWAKE. ENCOURAGED TO DO BREATHING EXERCISE. DENIES ANY PAIN. SATING REMAINED BETWEEN 90- 91%. MOTIVATED TO TURNED AND REPOSITIONED. ALL DUE MEDICINE TOLERATED WELL. NO SIGNIFICANT PATRICE SHOWS. IV ATB TOLERATED WITHOUT ASE NOTED. KEPT PT CLEAN AND COMFORTABLE IN BED. WILL ENDORSED CONTINUITY OF CARE.
--- NOTE | 2017-06-30 07:05 | NUR ---
RN INITIAL NOTE PATIENT RESTING IN BED COMFORTABLY. EASILY AROUSED. NO S/S OF PAIN OR DISCOMFORT. RESPIRATIONS ARE EVEN AND UNLABORED. NO S/S OF RESPIRATORY DISTRESS OR SOB. SATING IN LOW 90'S ON 2L NASAL CANULA. IV SITE, FLUSHED AND PATENT. SKIN IS WARM AND DRY TO TOUCH. SAFETY PRECAUTIONS IMPLEMENTED, BED IN LOCKED LOW POSITION WITH TWO SIDE RAILS UP.
[2017-06-30] MEDS: IPRATROPIUM NEB FS 0.5 MG/2.5 ML AMPUL.NEB NEB SCH ×3 (07:33→23:34)
[2017-06-30] MEDS: ALBUTEROL FS 2.5 MG/0.5 ML VIAL.NEB NEB SCH ×3 (07:33→23:34)
[2017-06-30 07:48] LABS: BASOPHILS % (AUTO) 0.1 % (0.0-2.0); EOSINOPHILS # (AUTO) 0.9 /CMM (0.0-0.7); EOSINOPHILS % (AUTO) 6.9 % (0.0-6.0); HEMATOCRIT 25 % (33-45); HEMOGLOBIN 8.5 g/dL (11.5-14.8); LYMPHOCYTES # (AUTO) 0.6 /CMM (0.8-4.8); LYMPHOCYTES % (AUTO) 4.3 % (20.0-44.0); MEAN CORPUSCULAR HEMOGLOBIN 31 PG (26.0-33.0); MEAN CORPUSCULAR HGB CONC 34 g/dl (31.0-36.0); MEAN CORPUSCULAR VOLUME 92 fL (82-100); MONOCYTES # (AUTO) 0.9 /CMM (0.1-1.30); MONOCYTES % (AUTO) 6.2 % (2.0-12.0); NEUTROPHILS # (AUTO) 11.3 /CMM (1.8-8.9); NEUTROPHILS % (AUTO) 82.5 % (43.0-81.0); PLATELET COUNT (AUTO) 285 /CMM (150-450); RDW COEFFICIENT OF VARIATION 20.5 (11.5-15.0); RED BLOOD CELL COUNT(AUTO) 2.75 MIL/uL (4.0-5.2); WHITE BLOOD COUNT (AUTO) 13.7 K/uL (4.3-11.0)
[2017-06-30 08:00] VITALS: BP 169/68
[2017-06-30 08:06] LABS: ALANINE AMINOTRANSFERASE 16 U/L (12-78); ALBUMIN 1.6 g/dL (3.4-5.0); ALKALINE PHOSPHATASE 70 U/L (46-116); ASPARTATE AMINOTRANSFERASE 22 U/L (15-37); BILIRUBIN,TOTAL 0.3 mg/dL (0.2-1.0); CALCIUM, SERUM 7.9 mg/dL (8.5-10.1); CARBON DIOXIDE 28 mmol/L (21-32); CHLORIDE 102 mmol/L (98-107); CREATININE 1.4 mg/dL (0.6-1.3); GLUCOSE 97 mg/dL (74-106); POTASSIUM 4.1 mmol/L (3.5-5.1); SODIUM SERUM 137 mmol/L (136-145); TOTAL PROTEIN, SERUM 5.9 g/dL (6.4-8.2); UREA NITROGEN, BLOOD 18 mg/dL (7-18)
[2017-06-30] MEDS: ASCORBIC ACID 500 MG TABLET PO SCH (08:06)
[2017-06-30] MEDS: POTASSIUM CHLORIDE 10 MEQ TABLET.SA PO SCH (08:06)
[2017-06-30] MEDS: FERROUS SULFATE (325 MG) 325 MG/TAB TABLET PO SCH ×2 (08:06→17:54)
[2017-06-30] MEDS: LEVOTHYROXINE SODIUM 75 MCG TABLET PO SCH (08:06)
[2017-06-30] MEDS: FUROSEMIDE 40 MG TABLET PO SCH (08:06)
[2017-06-30] MEDS: DOCUSATE SODIUM 100 MG CAPSULE PO SCH ×2 (08:06→17:54)
[2017-06-30] MEDS: FAMOTIDINE (20 MG) 20 MG TABLET PO SCH (08:06)
[2017-06-30] MEDS: ESCITALOPRAM OXALATE (10 MG) 10 MG TABLET PO SCH (08:06)
[2017-06-30] MEDS: FOLIC ACID 1 MG TABLET PO SCH (08:06)
[2017-06-30] MEDS: MULTIVIT, IRON, MIN NO. 8, FA 1 TAB PO SCH (08:06)
[2017-06-30 08:12] LABS: *SPE A/G RATIO 0.7 (0.7-1.7); *SPE ALBUMIN 2.3 g/dL (2.9-4.4); *SPE ALPHA-1-GLOBULIN 0.4 g/dL (0.0-0.4); *SPE ALPHA-2-GLOBULIN 0.9 g/dL (0.4-1.0); *SPE BETA GLOBULIN 1.2 g/dL (0.7-1.3); *SPE GLOBULIN, TOTAL 3.5 g/dL (2.2-3.9); *SPE M-SPIKE Not Observed g/dL (Not Observed); *SPE PROTEIN TOTAL 5.8 g/dL (6.0-8.5); CANCER AG, 15-3 22.1 U/mL (0.0-25.0)
[2017-06-30] MEDS: METOPROLOL TARTRATE 50 MG TABLET PO SCH ×2 (08:15→17:55)
[2017-06-30] MEDS: PROSOURCE / PROSTAT (PYXIS) 30 ML UDC PO SCH (09:00)
[2017-06-30] MEDS: VITAMIN E 400 UNIT CAPSULE PO SCH (09:00)
[2017-06-30] MEDS: FLUTICASONE/VILANTEROL 1 EACH BLST.W.DEV IH SCH (09:00)
[2017-06-30] MEDS: NEOMY SULF/BACITRAC ZN/POLY 15 GM TUBE TP SCH (09:02)
[2017-06-30] MEDS: COD LIVER OIL/ZINC OXIDE 120 GM TUBE TP SCH (09:02)
[2017-06-30 09:22] LABS: IMMUNOGLOBULIN A, SERUM 654 mg/dL (64-422); IMMUNOGLOBULIN G, SERUM 1055 mg/dL (700-1600); IMMUNOGLOBULIN M, SERUM 71 mg/dL (26-217)
[2017-06-30] MEDS ORDERED: MENTHOL/CETYLPYRD (CEPACOL) 1 LOZ LOZENGE PO PRN (11:00)
[2017-06-30] MEDS: AZITHROMYCIN 250 MG TABLET PO SCH (12:26)
[2017-06-30] MEDS: ACETAMINOPHEN 325 MG TABLET PO PRN (14:58)
[2017-06-30 16:00] VITALS: BP 151/64
--- NOTE | 2017-06-30 19:14 | NUR ---
RN CLOSING NOTE ALL MD ORDERS CARRIED OUT. PATIENT KEPT CLEAN AND DRY. SAFETY PRECAUTIONS IN PLACE AT ALL TIMES. WILL GIVE REPORT TO PM RN FOR PATRICE.
[2017-06-30 20:00] VITALS: BP 145/62
[2017-06-30] MEDS: CEFTRIAXONE 2 G in IV D5W 100 ML IV SCH (21:11)
[2017-06-30] MEDS: ATORVASTATIN 10 MG TABLET PO SCH (21:12)
--- NOTE | 2017-07-01 02:00 | NUR ---
RN NOTES NOTED WITH A HARD TIME PUSHING HER BOWEL. SATING WENT DOWN TO 85%. OFFERED PT WITH STOOL SOFTENER AND TAKE IT. PRN MOM GIVEN ORDERED. WILL MONITORED EFFECTIVENESS
[2017-07-01] MEDS: ALBUTEROL FS 2.5 MG/0.5 ML VIAL.NEB NEB PRN (03:37)
[2017-07-01] MEDS: IPRATROPIUM NEB FS 0.5 MG/2.5 ML AMPUL.NEB NEB PRN (03:37)
[2017-07-01 04:00] VITALS: BP 151/80
[2017-07-01] MEDS: HYDROCODONE/APAP 5/325MG 1 EACH TABLET PO PRN (06:14)
[2017-07-01] MEDS: ACETAMINOPHEN 325 MG TABLET PO PRN ×2 (06:22→21:22)
[2017-07-01 06:43] LABS: BASOPHILS % (AUTO) 0.2 % (0.0-2.0); EOSINOPHILS # (AUTO) 1.1 /CMM (0.0-0.7); EOSINOPHILS % (AUTO) 8.9 % (0.0-6.0); HEMATOCRIT 26 % (33-45); HEMOGLOBIN 8.8 g/dL (11.5-14.8); LYMPHOCYTES # (AUTO) 0.6 /CMM (0.8-4.8); LYMPHOCYTES % (AUTO) 4.6 % (20.0-44.0); MEAN CORPUSCULAR HEMOGLOBIN 31 PG (26.0-33.0); MEAN CORPUSCULAR HGB CONC 34 g/dl (31.0-36.0); MEAN CORPUSCULAR VOLUME 93 fL (82-100); MONOCYTES # (AUTO) 0.6 /CMM (0.1-1.30); MONOCYTES % (AUTO) 5.1 % (2.0-12.0); NEUTROPHILS # (AUTO) 10.1 /CMM (1.8-8.9); NEUTROPHILS % (AUTO) 81.2 % (43.0-81.0); PLATELET COUNT (AUTO) 291 /CMM (150-450); RDW COEFFICIENT OF VARIATION 20.5 (11.5-15.0); RED BLOOD CELL COUNT(AUTO) 2.81 MIL/uL (4.0-5.2); WHITE BLOOD COUNT (AUTO) 12.4 K/uL (4.3-11.0)
--- NOTE | 2017-07-01 06:43 | NUR ---
RN NOTES PT ASLEEP AT THIS TIME PAIN MEDICINE GIVEN ORDERED AND REQUESTED BY PATIENT. O2 2LPM VIA NC KEPT ON. AFEBRILE. NO ACUTE RESP DISTRESS. BREATHING TX. GIVEN BY RT TOLERATED WELL. ALL DUE MEDICINE TOLERATED WELL WITHOUT N.V.D. INCONTINENT CARE PROVIDED. STOOL SOFTENER EFFECTIVE KEPT PT CLEAN AND DRY. WILL CONTINUE TO MONITOR.
[2017-07-01 07:00] LABS: CALCIUM, SERUM 8.1 mg/dL (8.5-10.1); CARBON DIOXIDE 27 mmol/L (21-32); CHLORIDE 100 mmol/L (98-107); CREATININE 1.5 mg/dL (0.6-1.3); GLUCOSE 99 mg/dL (74-106); POTASSIUM 3.9 mmol/L (3.5-5.1); SODIUM SERUM 136 mmol/L (136-145); UREA NITROGEN, BLOOD 17 mg/dL (7-18)
--- NOTE | 2017-07-01 07:12 | NUR ---
RN INITIAL NOTES: REC'D PT AWAKE ON BED, NOT IN ANY FORM OF DISTRESS, A/O X2-3, DENIES ANY PAIN/ DISCOMFORT,ABLE TO MAKE NEEDS KNOWN. ON O2 AT 2LPM/NC, NOTED WHEEZING. BREATHING TX PROVIDED BY RT. HAS ELIJAH PICC LINE, SL, FLUSHED, PATENT & INTACT W/ NO S/SX OF INFECTION/ INFILTRATION. PROVIDED COMFORT & SAFETY MEASURES. BED KEPT LOW & IN LOCKED POS. WILL CONTINUE TO MONITOR.
[2017-07-01] MEDS: IPRATROPIUM NEB FS 0.5 MG/2.5 ML AMPUL.NEB NEB SCH ×3 (07:56→23:34)
[2017-07-01] MEDS: ALBUTEROL FS 2.5 MG/0.5 ML VIAL.NEB NEB SCH ×3 (07:56→23:34)
[2017-07-01 08:00] VITALS: BP_SYST 145; BP_DIAS 53; BP_DIAS 63
[2017-07-01] MEDS: FERROUS SULFATE (325 MG) 325 MG/TAB TABLET PO SCH ×2 (08:40→17:35)
[2017-07-01] MEDS: FOLIC ACID 1 MG TABLET PO SCH (08:40)
[2017-07-01] MEDS: ASCORBIC ACID 500 MG TABLET PO SCH (08:40)
[2017-07-01] MEDS: ESCITALOPRAM OXALATE (10 MG) 10 MG TABLET PO SCH (08:40)
[2017-07-01] MEDS: LEVOTHYROXINE SODIUM 75 MCG TABLET PO SCH (08:40)
[2017-07-01] MEDS: PROSOURCE / PROSTAT (PYXIS) 30 ML UDC PO SCH (08:41)
[2017-07-01] MEDS: METOPROLOL TARTRATE 50 MG TABLET PO SCH ×2 (08:41→17:36)
[2017-07-01] MEDS: POTASSIUM CHLORIDE 10 MEQ TABLET.SA PO SCH (08:41)
[2017-07-01] MEDS: FAMOTIDINE (20 MG) 20 MG TABLET PO SCH (08:41)
[2017-07-01] MEDS: FUROSEMIDE 40 MG TABLET PO SCH (08:41)
[2017-07-01] MEDS: MULTIVIT, IRON, MIN NO. 8, FA 1 TAB PO SCH (08:41)
[2017-07-01] MEDS: DOCUSATE SODIUM 100 MG CAPSULE PO SCH ×2 (08:42→16:39)
[2017-07-01] MEDS: COD LIVER OIL/ZINC OXIDE 120 GM TUBE TP SCH (08:43)
[2017-07-01] MEDS: Z GUARD REMEDY 2 OZ OINT TP PRN (08:44)
[2017-07-01] MEDS: NEOMY SULF/BACITRAC ZN/POLY 15 GM TUBE TP SCH (08:45)
[2017-07-01] MEDS: LOPERAMIDE HCL (2 MG CAP) 2 MG CAPSULE PO PRN (08:46)
[2017-07-01] MEDS: FLUTICASONE/VILANTEROL 1 EACH BLST.W.DEV IH SCH (08:47)
[2017-07-01] MEDS: VITAMIN E 400 UNIT CAPSULE PO SCH (08:47)
--- NOTE | 2017-07-01 11:59 | NUR ---
RN NOTES: PT SEEN & EXAMINED BY .
[2017-07-01] MEDS: AZITHROMYCIN 250 MG TABLET PO SCH (12:27)
[2017-07-01 16:00] VITALS: BP 157/88
--- NOTE | 2017-07-01 18:38 | NUR ---
RN CLOSING NOTES: NO ACUTE CHANGES NOTED W/IN SHIFT. TOLERATED O2 AT 2LPM/NC, SATURATING AT 96%. ELIJAH PICC LINE, KEPT PATENT & INTACT W/ NO S/SX OF INFECTION/ INFILTRATION. KEPT WELL RESTED. NEEDS ATTENDED. CALL LIGHT PLACED W/IN REACH. BED KEPT LOW & IN LOCKED POS. WILL ENDORSE TO PM RN FOR PATRICE.
[2017-07-01 20:00] VITALS: BP 160/74
[2017-07-01] MEDS: CEFTRIAXONE 2 G in IV D5W 100 ML IV SCH (20:30)
[2017-07-01] MEDS: ATORVASTATIN 10 MG TABLET PO SCH (21:22)
[2017-07-01] MEDS: ZOLPIDEM TARTRATE 5 MG TABLET PO PRN (22:41)
[2017-07-02] VITALS (7 sets, daily range): BP systolic 148–184; BP diastolic 73–102
[2017-07-02 06:22] LABS: BASOPHILS % (AUTO) 0.2 % (0.0-2.0); EOSINOPHILS # (AUTO) 0.9 /CMM (0.0-0.7); EOSINOPHILS % (AUTO) 6.4 % (0.0-6.0); HEMATOCRIT 27 % (33-45); HEMOGLOBIN 8.8 g/dL (11.5-14.8); LYMPHOCYTES # (AUTO) 0.5 /CMM (0.8-4.8); LYMPHOCYTES % (AUTO) 3.6 % (20.0-44.0); MEAN CORPUSCULAR HEMOGLOBIN 31 PG (26.0-33.0); MEAN CORPUSCULAR HGB CONC 33 g/dl (31.0-36.0); MEAN CORPUSCULAR VOLUME 93 fL (82-100); MONOCYTES # (AUTO) 0.8 /CMM (0.1-1.30); MONOCYTES % (AUTO) 5.9 % (2.0-12.0); NEUTROPHILS # (AUTO) 11.7 /CMM (1.8-8.9); NEUTROPHILS % (AUTO) 83.9 % (43.0-81.0); PLATELET COUNT (AUTO) 326 /CMM (150-450); RDW COEFFICIENT OF VARIATION 20.4 (11.5-15.0); RED BLOOD CELL COUNT(AUTO) 2.87 MIL/uL (4.0-5.2); WHITE BLOOD COUNT (AUTO) 13.9 K/uL (4.3-11.0)
[2017-07-02 06:39] LABS: CHLORIDE 100 mmol/L (98-107); CREATININE 1.7 mg/dL (0.6-1.3); GLUCOSE 97 mg/dL (74-106); POTASSIUM 4.2 mmol/L (3.5-5.1); SODIUM SERUM 135 mmol/L (136-145); UREA NITROGEN, BLOOD 17 mg/dL (7-18)
[2017-07-02 06:47] LABS: CARBON DIOXIDE 27 mmol/L (21-32)
[2017-07-02] MEDS: ALBUTEROL FS 2.5 MG/0.5 ML VIAL.NEB NEB SCH ×3 (07:02→23:22)
[2017-07-02] MEDS: IPRATROPIUM NEB FS 0.5 MG/2.5 ML AMPUL.NEB NEB SCH ×3 (07:02→23:22)
--- NOTE | 2017-07-02 07:41 | NUR ---
INITIAL MS RN NOTE RCVD PT AWAKE AND ALERT, SHOWING NO S/O DISTRESS OR C/O PAIN AT THIS TIME. AUDIBLE WHEEZING NOTED, RT AT BEDSIDE PROVIDING TX. TOLERATING O2 VIA NC. ELIJAH PICC C/D/I/PATENT. NO S/O INFILTRATION/PHLEBITIS OBSERVED UPON FLUSHING. WILL CONTINUE TO MONITOR PT FOR SAFETY AND COMFORT. CALL LIGHT WITHIN REACH. BED IN LOW AND LOCKED POSITION.
[2017-07-02] MEDS: LEVOTHYROXINE SODIUM 75 MCG TABLET PO SCH (07:51)
[2017-07-02] MEDS: METOPROLOL TARTRATE 50 MG TABLET PO SCH ×2 (07:52→17:44)
[2017-07-02] MEDS: FUROSEMIDE 40 MG TABLET PO SCH (07:52)
[2017-07-02] MEDS: DOCUSATE SODIUM 100 MG CAPSULE PO SCH ×3 (07:58→17:43)
[2017-07-02] MEDS: MULTIVIT, IRON, MIN NO. 8, FA 1 TAB PO SCH (08:00)
[2017-07-02] MEDS: FERROUS SULFATE (325 MG) 325 MG/TAB TABLET PO SCH ×3 (08:01→17:43)
[2017-07-02] MEDS: PROSOURCE / PROSTAT (PYXIS) 30 ML UDC PO SCH (08:01)
[2017-07-02] MEDS: POTASSIUM CHLORIDE 10 MEQ TABLET.SA PO SCH (08:01)
[2017-07-02] MEDS: ASCORBIC ACID 500 MG TABLET PO SCH (08:01)
[2017-07-02] MEDS: ESCITALOPRAM OXALATE (10 MG) 10 MG TABLET PO SCH (08:01)
[2017-07-02] MEDS: FOLIC ACID 1 MG TABLET PO SCH (08:01)
[2017-07-02] MEDS: FAMOTIDINE (20 MG) 20 MG TABLET PO SCH (08:01)
[2017-07-02] MEDS: VITAMIN E 400 UNIT CAPSULE PO SCH (08:01)
[2017-07-02] MEDS: FLUTICASONE/VILANTEROL 1 EACH BLST.W.DEV IH SCH (08:01)
[2017-07-02] MEDS: COD LIVER OIL/ZINC OXIDE 120 GM TUBE TP SCH (08:02)
[2017-07-02] MEDS: NEOMY SULF/BACITRAC ZN/POLY 15 GM TUBE TP SCH (08:02)
--- NOTE | 2017-07-02 11:12 | NUR ---
MS RN NOTE DR. RAYGOZA AT BEDSIDE INFORMED PT OF RECOMMENDATION FOR BONE MARROW BIOPSY. PT WOULD LIKE TO DISCUSS WITH HER SON PRIOR TO GIVING CONSENT FOR PROCEDURE. DR. RAYGOZA ACKNOWLEDGED.
--- NOTE | 2017-07-02 15:10 | NUR ---
MS RN NOTE DR. PARSON AT BEDSIDE AWARE OF PT'S SHORTNESS OF BREATH, WHEEZING DESPITE BREATHING TX. NO STEROIDS RECOMMENDED AT THIS TIME.
[2017-07-02 15:53] LABS: APPEARANCE,URINE SL CLOUDY (CLEAR); BILIRUBIN,URINE NEGATIVE (NEGATIVE); BLOOD, URINE 3+ Ery/uL (NEGATIVE); COLOR,URINE YELLOW (YELLOW); KETONES,URINE NEGATIVE (NEGATIVE); LEUKOCYTE ESTERASE ,URINE 1+ (NEGATIVE); NITRITE, URINE NEGATIVE (NEGATIVE); PH,URINE 6.5 (5.0-8.0); PROTEIN,URINE NEGATIVE (NEGATIVE); UGLUCOSE NEGATIVE (NEGATIVE); UROBILINOGEN,URINE 0.2 EU/dL (0.2)
[2017-07-02 15:54] LABS: CREATININE, URINE < 13.0 MG/DL (30.0-125.0); URINE SODIUM, RANDOM 107 mmol/l (40-220); URINE TOTAL PROTEIN 34.8 mg/dL (0-11.9)
[2017-07-02 16:42] LABS: BACTERIA,URINE 1+ /HPF (None Seen); RBC,URINE 81-100 /HPF (0-2); YEAST,URINE Many /HPF (None Seen)
[2017-07-02 16:43] LABS: SQUAMOUS EPITHELIAL CELL,UR 0-2 /HPF (None Seen)
[2017-07-02 17:25] LABS: EOSINOPHIL,URINE None Seen
[2017-07-02] MEDS: HYDROCODONE/APAP 5/325MG 1 EACH TABLET PO PRN (17:43)
--- NOTE | 2017-07-02 19:07 | NUR ---
ENDING MS RN NOTE PT REMAINS STABLE, AFEBRILE, SHOWING NO S/O DISTRESS OR PAIN. MENCHACA DRAINING YELLOW URINE. IV ACCESS C/D/I/PATENT. NO S/O INFILTRATION/PHLEBITIS OBSERVED UPON FLUSHING PT'S CARE WILL BE ENDORSED TO ACCOUNT ADMINISTRATOR RN FOR CONTINUITY OF CARE. PT'S SON CAME TO TALK TO PT ABOUT BONE MARROW BIOPSY, PER SON PT TO THINK ABOUT IT OVERNIGHT. PT'S SON WILL COME TO SEE PT TOMORROW IN AM TO MAKE SURE SHE SIGNS CONSENT.
[2017-07-02] MEDS: ALBUTEROL FS 2.5 MG/0.5 ML VIAL.NEB NEB PRN (19:59)
[2017-07-02] MEDS: IPRATROPIUM NEB FS 0.5 MG/2.5 ML AMPUL.NEB NEB PRN (19:59)
--- NOTE | 2017-07-02 20:00 | NUR ---
MS RN NOTE PT IN BED ASLEEP, AROUSABLE. A/O X 2 FORGETFUL. NOTED PT O2 SAT 84%. RT CALLED AND BTX GIVEN. O2 SAT WENT UP TO 96%. NO FURTHER DISTRESS OR DISCOMFORT NOTED. DENIES PAIN. REPOSITION HER FOR SKIN MANAGEMENT. KEPT HER DRY AND CLEAN. ALL NEEDS ATTENDED. SIDE RIALS UP X 3 AND CALL LIGHT WITHIN REACH. VSS. CONTINUE TO MONITOR HER.
[2017-07-02] MEDS: CEFTRIAXONE 2 G in IV D5W 100 ML IV SCH (20:10)
[2017-07-02] MEDS: ATORVASTATIN 10 MG TABLET PO SCH (22:12)
[2017-07-03 04:00] VITALS: BP 152/71
[2017-07-03] MEDS: HYDROCODONE/APAP 5/325MG 1 EACH TABLET PO PRN ×3 (05:15→16:21)
[2017-07-03] MEDS: IPRATROPIUM NEB FS 0.5 MG/2.5 ML AMPUL.NEB NEB PRN ×2 (05:19→20:06)
[2017-07-03] MEDS: ALBUTEROL FS 2.5 MG/0.5 ML VIAL.NEB NEB PRN ×2 (05:19→20:06)
[2017-07-03 06:41] LABS: CREATINE KINASE, TOTAL 32 U/L (26-192)
--- NOTE | 2017-07-03 06:45 | NUR ---
MS RN NOTE PT IN BED ASLEEP, NO DISTRESS OR DISCOMFORT NOTED. DENIES PAIN. KEPT HER DRY AND CLEAN. ALL NEEDS ATTENDED. SIDE RAILS UP X 2 AND CALL LIGHT WITHIN REACH. WILL ENDORSE TO DAY SHIFT.
[2017-07-03 06:47] LABS: BASOPHILS % (AUTO) 0.5 % (0.0-2.0); EOSINOPHILS # (AUTO) 0.9 /CMM (0.0-0.7); EOSINOPHILS % (AUTO) 8.3 % (0.0-6.0); HEMATOCRIT 25 % (33-45); HEMOGLOBIN 8.3 g/dL (11.5-14.8); INR 1.11 (0.87-1.13); LYMPHOCYTES # (AUTO) 0.7 /CMM (0.8-4.8); LYMPHOCYTES % (AUTO) 6.8 % (20.0-44.0); MEAN CORPUSCULAR HEMOGLOBIN 31 PG (26.0-33.0); MEAN CORPUSCULAR HGB CONC 34 g/dl (31.0-36.0); MEAN CORPUSCULAR VOLUME 93 fL (82-100); MONOCYTES # (AUTO) 0.7 /CMM (0.1-1.30); MONOCYTES % (AUTO) 6.5 % (2.0-12.0); NEUTROPHILS # (AUTO) 8.1 /CMM (1.8-8.9); NEUTROPHILS % (AUTO) 77.9 % (43.0-81.0); RDW COEFFICIENT OF VARIATION 19.8 (11.5-15.0); RED BLOOD CELL COUNT(AUTO) 2.64 MIL/uL (4.0-5.2); WHITE BLOOD COUNT (AUTO) 10.4 K/uL (4.3-11.0)
[2017-07-03 06:54] LABS: ALANINE AMINOTRANSFERASE 14 U/L (12-78); ALBUMIN 1.8 g/dL (3.4-5.0); ALKALINE PHOSPHATASE 76 U/L (46-116); ASPARTATE AMINOTRANSFERASE 19 U/L (15-37); BILIRUBIN,TOTAL 0.4 mg/dL (0.2-1.0); CALCIUM, SERUM 7.6 mg/dL (8.5-10.1); CARBON DIOXIDE 25 mmol/L (21-32); CHLORIDE 100 mmol/L (98-107); CREATININE 1.9 mg/dL (0.6-1.3); GLUCOSE 121 mg/dL (74-106); MAGNESIUM 1.7 mg/dL (1.8-2.4); PHOSPHORUS 4.2 mg/dL (2.5-4.9); POTASSIUM 3.6 mmol/L (3.5-5.1); SODIUM SERUM 136 mmol/L (136-145); TOTAL PROTEIN, SERUM 6.3 g/dL (6.4-8.2); UREA NITROGEN, BLOOD 19 mg/dL (7-18)
[2017-07-03] MEDS: IPRATROPIUM NEB FS 0.5 MG/2.5 ML AMPUL.NEB NEB SCH ×3 (07:35→23:17)
[2017-07-03] MEDS: ALBUTEROL FS 2.5 MG/0.5 ML VIAL.NEB NEB SCH ×3 (07:35→23:17)
[2017-07-03 08:00] VITALS: BP 149/65
[2017-07-03 08:05] VITALS: BP 149/65
[2017-07-03 08:16] LABS: PLATELET COUNT (AUTO) 368 /CMM (150-450)
--- NOTE | 2017-07-03 09:15 | NUR ---
RN notes- Pt's son, Omari at bedside. Talked to pt regarding bone marrow biopsy. Pt agrees to biopsy. Consent signed by pt's son and placed in chart. Will continue to monitor.
[2017-07-03] MEDS: METOPROLOL TARTRATE 50 MG TABLET PO SCH ×2 (09:16→16:21)
[2017-07-03] MEDS: FERROUS SULFATE (325 MG) 325 MG/TAB TABLET PO SCH ×2 (09:16→16:21)
[2017-07-03] MEDS: DOCUSATE SODIUM 100 MG CAPSULE PO SCH ×2 (09:16→16:21)
[2017-07-03] MEDS: LEVOTHYROXINE SODIUM 75 MCG TABLET PO SCH (09:16)
[2017-07-03] MEDS: ESCITALOPRAM OXALATE (10 MG) 10 MG TABLET PO SCH (09:16)
[2017-07-03] MEDS: FOLIC ACID 1 MG TABLET PO SCH (09:16)
[2017-07-03] MEDS: POTASSIUM CHLORIDE 10 MEQ TABLET.SA PO SCH (09:16)
[2017-07-03] MEDS: ASCORBIC ACID 500 MG TABLET PO SCH (09:17)
[2017-07-03] MEDS: VITAMIN E 400 UNIT CAPSULE PO SCH (09:17)
[2017-07-03] MEDS: FAMOTIDINE (20 MG) 20 MG TABLET PO SCH (09:17)
[2017-07-03] MEDS: PROSOURCE / PROSTAT (PYXIS) 30 ML UDC PO SCH (09:17)
[2017-07-03] MEDS: FLUTICASONE/VILANTEROL 1 EACH BLST.W.DEV IH SCH (09:17)
[2017-07-03] MEDS: MULTIVIT, IRON, MIN NO. 8, FA 1 TAB PO SCH (09:17)
[2017-07-03] MEDS: NEOMY SULF/BACITRAC ZN/POLY 15 GM TUBE TP SCH (09:18)
[2017-07-03] MEDS: COD LIVER OIL/ZINC OXIDE 120 GM TUBE TP SCH (09:19)
[2017-07-03] MEDS ORDERED: Magnesium 1GM/D5W 100ML PREMIX 100 ML IV SCH (10:30)
--- NOTE | 2017-07-03 12:30 | NUR ---
RN notes- Bone marrow biopsy done at bedside by Dr. Hale. All biopsies/specimens sent to Pathology. Pt tolerated procedure well. Will continue to monitor.
[2017-07-03] MEDS ORDERED: LIDOCAINE 1% INJ 50 ML MDV IJ ONE (13:30)
[2017-07-03 16:00] VITALS: BP 137/63
--- NOTE | 2017-07-03 17:00 | NUR ---
RN notes- PICC line dressing changed under aseptic technique. Pt tolerated well. Will continue to monitor.
[2017-07-03] MEDS: CEFTRIAXONE 2 G in IV D5W 100 ML IV SCH (19:42)
[2017-07-03] MEDS: ACETAMINOPHEN 325 MG TABLET PO PRN (19:42)
--- NOTE | 2017-07-03 19:45 | NUR ---
MS RN NOTE RECEIVED PT IN BED AWAKE. SON AT BED SIDE. A/O X 2 FORGETFUL. C/O MINOR PAIN IN RT WRIST 01/13, TYLENOL 650 MG PO GIVEN. F/C INTACT AND PATENT DRAINING YELLOWISH COLOR URINE. ELIJAH WITH PICC LINE INTACT AND PATENT. ALL NEEDS ATTENDED. SIDE RAILS UP X 3 AND CALL LIGHT WITHIN REACH. VSS. CONTINUE TO MONITOR HER.
[2017-07-03 20:00] VITALS: BP 138/69
[2017-07-03] MEDS: ATORVASTATIN 10 MG TABLET PO SCH (21:34)
[2017-07-04] MEDS: HYDROCODONE/APAP 5/325MG 1 EACH TABLET PO PRN (01:27)
[2017-07-04 04:00] VITALS: BP 149/64
[2017-07-04] MEDS: ACETAMINOPHEN 325 MG TABLET PO PRN (05:07)
[2017-07-04] MEDS: IPRATROPIUM NEB FS 0.5 MG/2.5 ML AMPUL.NEB NEB PRN (05:14)
[2017-07-04] MEDS: ALBUTEROL FS 2.5 MG/0.5 ML VIAL.NEB NEB PRN (05:14)
--- NOTE | 2017-07-04 06:46 | NUR ---
MS RN NOTE PT IN BED ASLEEP, AROUSABLE. NO DISTRESS OR DISCOMFORT NOTED. DENIES PAIN. PT IS FORGETFUL. SIDE RAILS UP X 3 AND CALL LIGHT WITHIN REACH. ALL NEEDS ATTENDED. WILL ENDORSE TO DAY SHIFT NURSE FOR CONTINUE TO CARE.
[2017-07-04] MEDS: ALBUTEROL FS 2.5 MG/0.5 ML VIAL.NEB NEB SCH ×3 (07:34→23:20)
[2017-07-04] MEDS: IPRATROPIUM NEB FS 0.5 MG/2.5 ML AMPUL.NEB NEB SCH ×3 (07:34→23:20)
[2017-07-04 08:00] VITALS: BP_SYST 160; BP_SYST 193; BP_DIAS 78; BP_DIAS 81
[2017-07-04] MEDS: POTASSIUM CHLORIDE 10 MEQ TABLET.SA PO SCH (08:52)
[2017-07-04] MEDS: FAMOTIDINE (20 MG) 20 MG TABLET PO SCH (08:52)
[2017-07-04] MEDS: DOCUSATE SODIUM 100 MG CAPSULE PO SCH ×2 (08:52→17:21)
[2017-07-04] MEDS: MULTIVIT, IRON, MIN NO. 8, FA 1 TAB PO SCH (08:52)
[2017-07-04] MEDS: ESCITALOPRAM OXALATE (10 MG) 10 MG TABLET PO SCH (08:52)
[2017-07-04] MEDS: FERROUS SULFATE (325 MG) 325 MG/TAB TABLET PO SCH ×2 (08:53→17:21)
[2017-07-04] MEDS: ASCORBIC ACID 500 MG TABLET PO SCH (08:53)
[2017-07-04] MEDS: LEVOTHYROXINE SODIUM 75 MCG TABLET PO SCH (08:53)
[2017-07-04] MEDS: METOPROLOL TARTRATE 50 MG TABLET PO SCH ×2 (08:53→17:21)
[2017-07-04] MEDS: FOLIC ACID 1 MG TABLET PO SCH (08:53)
[2017-07-04] MEDS: PROSOURCE / PROSTAT (PYXIS) 30 ML UDC PO SCH (08:54)
[2017-07-04] MEDS: FLUTICASONE/VILANTEROL 1 EACH BLST.W.DEV IH SCH (08:55)
[2017-07-04] MEDS: NEOMY SULF/BACITRAC ZN/POLY 15 GM TUBE TP SCH (09:00)
[2017-07-04] MEDS: VITAMIN E 400 UNIT CAPSULE PO SCH (09:00)
[2017-07-04] MEDS: COD LIVER OIL/ZINC OXIDE 120 GM TUBE TP SCH (09:00)
[2017-07-04 10:51] LABS: ABG OXYGEN SATURATION 97.5 % (92.0-98.5); ABG PCO2 38.1 mmHg (35.0-45.0); ABG PH 7.467 (7.350-7.450); ABG PO2 112.3 mmHg (75.0-100.0); COHb 0.8 % (0.5-1.5); MetHb 0.7 % (0.0-1.5); VENT MODE, BG SIMPLE MASK
[2017-07-04] MEDS: FLUCONAZOLE IN NS 100 MG in PREMIX 1 EA IV SCH ×2 (12:37)
[2017-07-04 14:00] VITALS: BP 165/74
--- NOTE | 2017-07-04 18:30 | NUR ---
francis gan ordered keep pt. npo for possible sx in am of right radius,awaits v qscan,pt verbalized " i am tired today,"wanted to do it tommrow,nuclear med made aware,DR. ROJAS notified via exchange regarding sx in am,and requested for clearance.
--- NOTE | 2017-07-04 18:39 | NUR ---
per DR. ROJAS will request cardiac consult in am for clearance and verbalized if pt. refused vqscan ok to d/c procedure,clarified with pt. wanted to do it but in am.,nuclear med Matt aware ,will try in am again.
--- NOTE | 2017-07-04 18:41 | NUR ---
discussed plan for sx of right wrist with patient and family will think about it since its been a chronic problem,sigrid blanco made aware.
--- NOTE | 2017-07-04 19:30 | NUR ---
MS RN INITIAL NOTE PT RECEIVED IN BED. A/O X2 WITH EPISODES OF CONFUSION BUT ABLE TO MAKE SOME NEEDS KNOWN. ON 6L OF O2 VIA FACE MASK AND SATURATING AT 98%. IV ELIJAH PICC LINE CLEAN AND INTACT. MENCHACA CATHETER IN PLACE AND DRAINING BY GRAVITY. BED IN LOWEST POSITION, LOCKED IN PLACE AND BAD ALARM ON. CALL LIGHT WITHIN REACH. WILL CONTINUE TO MONITOR.
[2017-07-04 20:00] VITALS: BP 147/74
--- NOTE | 2017-07-04 20:30 | NUR ---
MS RN NOTE SPOKE WITH AMBULANCE. PT IS ON WILL CALL. INFORMATION WAS CLARIFIED WITH
[2017-07-04] MEDS: ATORVASTATIN 10 MG TABLET PO SCH (21:23)
--- NOTE | 2017-07-05 03:42 | NUR ---
MS RN NOTES PATIENT COMPLAINING OF SEVERE RIGHT WRIST PAIN, CURRENTLY NPO, PER SAM OK TO GIVE PRN NORCO AT THIS TIME. WILL CONTINUE TO MONITOR.
[2017-07-05] MEDS: HYDROCODONE/APAP 5/325MG 1 EACH TABLET PO PRN ×3 (03:46→21:30)
[2017-07-05 04:00] VITALS: BP 160/88
--- NOTE | 2017-07-05 06:38 | NUR ---
MS RN CLOSING NOTE PT REMAINED STABLE DURING SHIFT. PT ON 4L OF O2 AND SATURATING AT 100%. ALL NEEDS ATTENDED TO PROMPTLY. ALL SAFETY MEASURES IN PLACE. NPO STATUS MAINTAINED. KEPT CLEAN AND DRY. CALL LIGHT WITHIN REACH AT ALL TIMES. WILL ENDORSE TO NEXT SHIFT FOR CONTINUITY OF CARE.
[2017-07-05] MEDS: LEVOTHYROXINE SODIUM 75 MCG TABLET PO SCH (07:30)
[2017-07-05] MEDS: IPRATROPIUM NEB FS 0.5 MG/2.5 ML AMPUL.NEB NEB SCH ×5 (07:38→23:58)
[2017-07-05] MEDS: ALBUTEROL FS 2.5 MG/0.5 ML VIAL.NEB NEB SCH ×6 (07:38→23:59)
--- NOTE | 2017-07-05 07:51 | NUR ---
RN INITIAL NOTE REPORT RECEIVED FROM ANSLEY MCNALLY SHIFT. PT ON FACE MASK 4L 93%. PT A/O 1-2 CONFUSED. PT MS. FC INTACT. IV ELIJAH PICC LINE PATENT AND INTACT. WILL CONTINUE TO MONITOR CLOSELY. ALL SAFETY MEASURES IN PLACE.
[2017-07-05 08:00] VITALS: BP 149/92
[2017-07-05] MEDS: DOCUSATE SODIUM 100 MG CAPSULE PO SCH ×2 (08:47→16:45)
[2017-07-05] MEDS: FERROUS SULFATE (325 MG) 325 MG/TAB TABLET PO SCH ×2 (08:47→16:44)
[2017-07-05] MEDS: FLUTICASONE/VILANTEROL 1 EACH BLST.W.DEV IH SCH (08:47)
[2017-07-05] MEDS: PROSOURCE / PROSTAT (PYXIS) 30 ML UDC PO SCH (08:49)
[2017-07-05] MEDS: MULTIVIT, IRON, MIN NO. 8, FA 1 TAB PO SCH (08:49)
[2017-07-05] MEDS: POTASSIUM CHLORIDE 10 MEQ TABLET.SA PO SCH (08:49)
[2017-07-05] MEDS: FOLIC ACID 1 MG TABLET PO SCH (08:49)
[2017-07-05] MEDS: ESCITALOPRAM OXALATE (10 MG) 10 MG TABLET PO SCH (08:49)
[2017-07-05] MEDS: ASCORBIC ACID 500 MG TABLET PO SCH (08:49)
[2017-07-05] MEDS: VITAMIN E 400 UNIT CAPSULE PO SCH (08:50)
[2017-07-05] MEDS: NEOMY SULF/BACITRAC ZN/POLY 15 GM TUBE TP SCH (08:53)
[2017-07-05] MEDS: COD LIVER OIL/ZINC OXIDE 120 GM TUBE TP SCH (08:54)
[2017-07-05] MEDS: FAMOTIDINE (20 MG) 20 MG TABLET PO SCH (08:55)
--- NOTE | 2017-07-05 09:35 | NUR ---
RN NOTE BJORN Ku FROM [facility] ATTEMPTED TO CALL SON KEIRA AND DAUGHTER IN [place] FOR CONSENT FOR WRIST FX. UNABLE TO REACH THEM.
[2017-07-05] MEDS: Magnesium 1GM/D5W 100ML PREMIX 100 ML IV SCH ×2 (09:48→10:48)
--- NOTE | 2017-07-05 10:12 | NUR ---
RN NOTE SHILPI Ku CALLED ORDERED R WRIST SPLINT.
[2017-07-05] MEDS: FLUCONAZOLE IN NS 100 MG in PREMIX 1 EA IV SCH ×2 (10:24)
[2017-07-05] MEDS: METOPROLOL TARTRATE 50 MG TABLET PO SCH ×2 (10:30→16:45)
[2017-07-05 11:09] LABS: BASOPHILS # (AUTO) 0.1 /CMM (0.0-0.2); BASOPHILS % (AUTO) 1.1 % (0.0-2.0); EOSINOPHILS # (AUTO) 0.3 /CMM (0.0-0.7); EOSINOPHILS % (AUTO) 2.9 % (0.0-6.0); HEMATOCRIT 22 % (33-45); HEMOGLOBIN 7.5 g/dL (11.5-14.8); LYMPHOCYTES # (AUTO) 0.5 /CMM (0.8-4.8); LYMPHOCYTES % (AUTO) 5.2 % (20.0-44.0); MEAN CORPUSCULAR HEMOGLOBIN 31 PG (26.0-33.0); MEAN CORPUSCULAR HGB CONC 33 g/dl (31.0-36.0); MEAN CORPUSCULAR VOLUME 93 fL (82-100); MONOCYTES # (AUTO) 0.7 /CMM (0.1-1.30); MONOCYTES % (AUTO) 6.4 % (2.0-12.0); NEUTROPHILS # (AUTO) 8.6 /CMM (1.8-8.9); NEUTROPHILS % (AUTO) 84.4 % (43.0-81.0); PLATELET COUNT (AUTO) 379 /CMM (150-450); RDW COEFFICIENT OF VARIATION 20.4 (11.5-15.0); WHITE BLOOD COUNT (AUTO) 10.2 K/uL (4.3-11.0)
[2017-07-05 11:19] LABS: CALCIUM, SERUM 7.8 mg/dL (8.5-10.1); CARBON DIOXIDE 27 mmol/L (21-32); CHLORIDE 103 mmol/L (98-107); GLUCOSE 66 mg/dL (74-106); POTASSIUM 4.2 mmol/L (3.5-5.1); SODIUM SERUM 139 mmol/L (136-145); UREA NITROGEN, BLOOD 24 mg/dL (7-18)
[2017-07-05 11:28] LABS: IRON, SERUM 30 ug/dl (50-175); TOTAL IRON BINDING CAPACITY 141 ug/dl (250-450)
[2017-07-05 11:41] LABS: FERRITIN 516 ng/mL (8-388)
[2017-07-05] MEDS: methylPREDNISolone SOD SUCC 40 MG/ML VIAL IV SCH ×2 (11:48→16:45)
--- NOTE | 2017-07-05 11:55 | NUR ---
RN NOTE CALLED ELIZA CROCKETT TO GET CONSENT FOR EGD AND COLONOSCOPY TOMORROW. PT EXPLAINED PROCEDURE AND REFUSED.
[2017-07-05] MEDS ORDERED: PEG 3350/NA SULF,BICARB,CL/KCL 4,000 ML BOTTLE PO ONE (12:00)
--- NOTE | 2017-07-05 12:04 | NUR ---
PT. REFUSED VQ SCAN.
--- NOTE | 2017-07-05 12:43 | NUR ---
RN NOTE PT AND FAMILY REFUSED COLONOSCOPY. DR. SAUCEDO NOTIFIED. SPOKE TO DR. MENDEZ REGARDING DC MAG IF LEVEL WAS WNL AFTER LABS DONE IN AM. MAG NOT GIVEN 2.1 WNL
--- NOTE | 2017-07-05 14:05 | NUR ---
ULTRASOUND SCAN WAS PERFORMED TO EVALUATE PLEURAL EFFUSION.. PATIENT DOES NOT WANT A THORACENTESIS RN KATERYNA WILL NOTIFY PATIENTS NURSE ALIYAH WHO IS CURRENTLY ON LUNCH BREAK.
--- NOTE | 2017-07-05 15:45 | NUR ---
RN NOTE CALLED DR. MENDEZ PT STATING NOT HUNGRY AND NOT REALLY WANTING TO EAT. STATED WILL REVIEW LABS AND DECIDE IF FLUIDS WILL BE RUN.
[2017-07-05 16:00] VITALS: BP 153/94
--- NOTE | 2017-07-05 18:58 | NUR ---
RN CLOSING NOTE REPORT GIVEN TO PM SHIFT. PT ON FACE MASK 4-5 L 96%. PT A/O 1-2 CONFUSED. PT MS. FC INTACT. IV ELIJAH PICC LINE PATENT AND INTACT. PT AND FAMILY REFUSED COLONOSCOPY, EGD, THORACENTESIS. FAMILY DO NOT WANT PATIENT TO BE "POKED AND PRODDED" ALL SAFETY MEASURES IN PLACE.
--- NOTE | 2017-07-05 19:30 | NUR ---
RN NOTES RECEIVED PT. AWAKE ON BED A/X2, CONFUSED ON FACE MASK 6L, MD IS AWARE, RIGHT WRIST WITH SPLINT, F/C DRAINING CLEAR YELLOW URINE, PICC LINE IN PLACE, DENIES PAIN, NO SOB, CALL LIGHT WITHIN REACH, SIDERAILS UPX2 CONTINUE TO MONITOR
[2017-07-05 20:00] VITALS: BP 165/74
[2017-07-05] MEDS: ATORVASTATIN 10 MG TABLET PO SCH (21:30)
--- NOTE | 2017-07-05 21:47 | NUR ---
RN NOTES COMPLAINED OF TIGHT ARM PAIN- NORCO 5/325 MG PO GIVEN ORDERED, V/S STABLE
[2017-07-05 22:31] VITALS: BP 165/74
[2017-07-06] MEDS: ALBUTEROL FS 2.5 MG/0.5 ML VIAL.NEB NEB SCH ×6 (03:53→23:17)
[2017-07-06] MEDS: IPRATROPIUM NEB FS 0.5 MG/2.5 ML AMPUL.NEB NEB SCH ×6 (03:53→23:17)
[2017-07-06 04:00] VITALS: BP 153/89
--- NOTE | 2017-07-06 06:24 | NUR ---
RN NOTES AWAKE, MORNING CARE RENDERED, F/C DRAINING INGE URINE, PICC LINE IN PLACE, SPLINT IN PLACE ON HER RIGHT WRIST, CALL LIGHT WITHIN REACH, SIDERAILS UPX2 PT. NEEDS ATTENDED ENDORSED TO DAYSHIFT NURSE FOR CONTINUITY OF CARE
[2017-07-06 06:47] LABS: BASOPHILS % (AUTO) 0.1 % (0.0-2.0); HEMATOCRIT 22 % (33-45); HEMOGLOBIN 7.4 g/dL (11.5-14.8); LYMPHOCYTES # (AUTO) 0.6 /CMM (0.8-4.8); LYMPHOCYTES % (AUTO) 5.5 % (20.0-44.0); MEAN CORPUSCULAR HEMOGLOBIN 32 PG (26.0-33.0); MEAN CORPUSCULAR HGB CONC 33 g/dl (31.0-36.0); MEAN CORPUSCULAR VOLUME 94 fL (82-100); MONOCYTES # (AUTO) 0.3 /CMM (0.1-1.30); MONOCYTES % (AUTO) 2.9 % (2.0-12.0); NEUTROPHILS # (AUTO) 9.3 /CMM (1.8-8.9); NEUTROPHILS % (AUTO) 91.5 % (43.0-81.0); PLATELET COUNT (AUTO) 465 /CMM (150-450); RDW COEFFICIENT OF VARIATION 21.1 (11.5-15.0); RED BLOOD CELL COUNT(AUTO) 2.36 MIL/uL (4.0-5.2); WHITE BLOOD COUNT (AUTO) 10.2 K/uL (4.3-11.0)
[2017-07-06 07:10] LABS: ALANINE AMINOTRANSFERASE 15 U/L (12-78); ALBUMIN 2.1 g/dL (3.4-5.0); ALKALINE PHOSPHATASE 73 U/L (46-116); ASPARTATE AMINOTRANSFERASE 20 U/L (15-37); BILIRUBIN,TOTAL 0.5 mg/dL (0.2-1.0); CALCIUM, SERUM 7.6 mg/dL (8.5-10.1); CARBON DIOXIDE 22 mmol/L (21-32); CHLORIDE 103 mmol/L (98-107); CREATININE 2.1 mg/dL (0.6-1.3); GLUCOSE 106 mg/dL (74-106); MAGNESIUM 2.2 mg/dL (1.8-2.4); PHOSPHORUS 5.1 mg/dL (2.5-4.9); POTASSIUM 4.9 mmol/L (3.5-5.1); SODIUM SERUM 139 mmol/L (136-145); TOTAL PROTEIN, SERUM 6.8 g/dL (6.4-8.2); UREA NITROGEN, BLOOD 32 mg/dL (7-18)
--- NOTE | 2017-07-06 07:10 | NUR ---
RN INITIAL NOTE PATIENT RECEIVED IN BED RESTING COMFORTABLY. PATIENT IS EASILY AROUSED. ABLE TO MAKE NEEDS KNOWN. NO S/S OF PAIN OR DISCOMFORT. DENIES PAIN AT THIS TIME. RESPIRATIONS ARE EVEN AND UNLABORED. NO S/S OF RESPIRATORY DISTRESS OR SOB. SATING WELL ON 6L WITH MASK. IV SITE FLUSHED, PATENT. SKIN IS WARM AND DRY TO TOUCH. SAFETY PRECAUTIONS IMPLEMENTED. BED IN LOCKED, LOW POSITION. WILL MONITOR CLOSELY.
[2017-07-06 08:00] VITALS: BP 158/77
[2017-07-06] MEDS: ASCORBIC ACID 500 MG TABLET PO SCH (09:46)
[2017-07-06] MEDS: methylPREDNISolone SOD SUCC 40 MG/ML VIAL IV SCH ×3 (09:46→17:29)
[2017-07-06] MEDS: FAMOTIDINE (20 MG) 20 MG TABLET PO SCH (09:46)
[2017-07-06] MEDS: DOCUSATE SODIUM 100 MG CAPSULE PO SCH ×2 (09:47→17:29)
[2017-07-06] MEDS: ESCITALOPRAM OXALATE (10 MG) 10 MG TABLET PO SCH (09:47)
[2017-07-06] MEDS: FERROUS SULFATE (325 MG) 325 MG/TAB TABLET PO SCH ×2 (09:47→17:29)
[2017-07-06] MEDS: LEVOTHYROXINE SODIUM 75 MCG TABLET PO SCH (09:47)
[2017-07-06] MEDS: FOLIC ACID 1 MG TABLET PO SCH (09:47)
[2017-07-06] MEDS: MULTIVIT, IRON, MIN NO. 8, FA 1 TAB PO SCH (09:47)
[2017-07-06] MEDS: METOPROLOL TARTRATE 50 MG TABLET PO SCH ×2 (09:47→18:01)
[2017-07-06] MEDS: FLUTICASONE/VILANTEROL 1 EACH BLST.W.DEV IH SCH (09:47)
[2017-07-06] MEDS: POTASSIUM CHLORIDE 10 MEQ TABLET.SA PO SCH (09:47)
[2017-07-06] MEDS: PROSOURCE / PROSTAT (PYXIS) 30 ML UDC PO SCH (09:48)
[2017-07-06] MEDS: COD LIVER OIL/ZINC OXIDE 120 GM TUBE TP SCH (09:48)
[2017-07-06] MEDS: HYDROCODONE/APAP 5/325MG 1 EACH TABLET PO PRN ×2 (09:48→18:01)
[2017-07-06] MEDS: FLUCONAZOLE IN NS 100 MG in PREMIX 1 EA IV SCH ×2 (10:00)
[2017-07-06] MEDS: VITAMIN E 400 UNIT CAPSULE PO SCH (10:01)
[2017-07-06 16:00] VITALS: BP 168/85
[2017-07-06] MEDS ORDERED: IV D5/ 0.9% NACL 1,000 ML IV PRN (19:00)
--- NOTE | 2017-07-06 19:40 | NUR ---
MS RN INITIAL NOTES RECIEVED PT IN BED RESTING, A/O X2 WITH CONFUSION. PT IS ON MASK 6L BREATHING EVENLY AND UNLABORED, SATING AT 92%. DENIES PAIN. ELIJAH PICC LINE INTACT WITH D5NS RUNNING AT 80 ML/HR. RIGHT WRIST BRACE IS INTACT. BED IS IN LOW AND LOCKED POSITION, CALL LIGHT IS WITHIN REACH. WILL CONTINUE TO MONITOR PT.
[2017-07-06 20:00] VITALS: BP 170/86
[2017-07-06] MEDS: ATORVASTATIN 10 MG TABLET PO SCH (21:02)
[2017-07-06] MEDS: ZOLPIDEM TARTRATE 5 MG TABLET PO PRN (21:41)
[2017-07-06 23:23] VITALS: BP 164/55
[2017-07-07] VITALS (47 sets, daily range): BP systolic 103–232; BP diastolic 32–208
[2017-07-07] MEDS ORDERED: QUETIAPINE FUMARATE 25 MG TABLET PO PRN (00:30)
[2017-07-07] MEDS ORDERED: QUETIAPINE FUMARATE 25 MG TABLET ONE (00:34)
--- NOTE | 2017-07-07 00:35 | NUR ---
MS RN NOTES PT APPEARED BE VERY ANXIOUS. CONTINUOUSLY GROANING AND PULLING ON HER GOWN. PT DENIES PAIN. DR. VARGAS WAS NOTIFIED. SEROQUEL 12.5 MG PO Q8H WAS ORDERED AND ADMINISTERED. WILL CONTINUE TO MONITOR PT.
[2017-07-07] MEDS: ALBUTEROL FS 2.5 MG/0.5 ML VIAL.NEB NEB SCH ×6 (03:37→22:51)
[2017-07-07] MEDS: IPRATROPIUM NEB FS 0.5 MG/2.5 ML AMPUL.NEB NEB SCH ×6 (03:37→22:51)
--- NOTE | 2017-07-07 06:19 | NUR ---
MS RN CLOSING NOTES PT IS IN BED SLEEPING, NO SIGNS OF SOB ON MASK 6L. PT CONTINUES TO BE ANXIOUS, SEROQUEL WILL BE DUE AT 0835. PT CONTINUES TO HAVE DECREASED URINE OUTPUT. IV ACCESS RUNNING WITH D5NS AT 80 ML/HR. CHEST XRAY HAS BEEN COMPLETED, PENDING RESULTS. ALL NEEDS WERE ANTICIPATED AND MET. BED IS IN LOW AND LOCKED POSITION. WILL ENDORSE TO DAY SHIFT.
[2017-07-07] MEDS ORDERED: ACETAMINOPHEN 650 MG/SUPP.RECT RC ONE (06:40)
[2017-07-07] MEDS: LEVOTHYROXINE SODIUM 75 MCG TABLET PO SCH (07:30)
--- NOTE | 2017-07-07 07:35 | NUR ---
RN NOTES RECEIVED PATIENT IN BED, ASLEEP, HOB ELEVATED, NO SOB OR DISTRESS NOTED. A/O X 1-2, VERBALLY RESPONSIVE AND ABLE TO MAKE NEEDS KNOWN. PICC LINE INTACT AND PATENT. PATIENT ON NON-REBREATHING MASK AT 6 LPM. KEPT PATIENT CLEAN AND COMFORTABLE IN BED, CALL LIGHT WITHIN PATIENT REACH, WILL CONTINUE TO MONITOR ACCORDINGLY.
--- NOTE | 2017-07-07 07:52 | NUR ---
patient on distress desaturates 70,pt. DNR/DNI, restless,not responding to repositioning,GENERAL OFFICE ASSISTANT CALLED FOR PATIENT SAFETY.DR. CRYSTAL NESBITT. GENERAL OFFICE ASSISTANT TEAM ON SCENE WILL DO LABS,ABG.
[2017-07-07 08:09] LABS: BASOPHILS % (AUTO) 0.1 % (0.0-2.0); EOSINOPHILS % (AUTO) 0.3 % (0.0-6.0); LYMPHOCYTES # (AUTO) 0.6 /CMM (0.8-4.8); LYMPHOCYTES % (AUTO) 6.2 % (20.0-44.0); MEAN CORPUSCULAR HEMOGLOBIN 30 PG (26.0-33.0); MEAN CORPUSCULAR HGB CONC 32 g/dl (31.0-36.0); MEAN CORPUSCULAR VOLUME 93 fL (82-100); MONOCYTES # (AUTO) 0.4 /CMM (0.1-1.30); MONOCYTES % (AUTO) 4.3 % (2.0-12.0); NEUTROPHILS % (AUTO) 89.1 % (43.0-81.0); PLATELET COUNT (AUTO) 460 /CMM (150-450); RDW COEFFICIENT OF VARIATION 21.3 (11.5-15.0); RED BLOOD CELL COUNT(AUTO) 2.19 MIL/uL (4.0-5.2); WHITE BLOOD COUNT (AUTO) 8.9 K/uL (4.3-11.0)
--- NOTE | 2017-07-07 08:10 | NUR ---
SPOKE WITH DR. ROJAS UPDATED WITH PTYamilka CHRISTOPHER AND WITH NEW ORDERS .
[2017-07-07 08:11] LABS: HEMOGLOBIN 6.5 g/dL (11.5-14.8)
[2017-07-07 08:12] LABS: HEMATOCRIT 20 % (33-45)
[2017-07-07 08:14] LABS: CALCIUM, SERUM 7.7 mg/dL (8.5-10.1); CARBON DIOXIDE 23 mmol/L (21-32); CHLORIDE 107 mmol/L (98-107); CREATININE 2.3 mg/dL (0.6-1.3); GLUCOSE 184 mg/dL (74-106); POTASSIUM 4.7 mmol/L (3.5-5.1); SODIUM SERUM 142 mmol/L (136-145); UREA NITROGEN, BLOOD 40 mg/dL (7-18)
[2017-07-07 08:16] LABS: ABG BASE EXCESS -4.8 mmol/L; ABG OXYGEN SATURATION 97.1 % (92.0-98.5); ABG PCO2 32.2 mmHg (35.0-45.0); AaDO2 423.6 mmHg; COHb 0.4 % (0.5-1.5); MetHb 0.7 % (0.0-1.5); SITE, ABG Right Radial; VENT MODE, BG NRB
[2017-07-07 08:19] LABS: MAGNESIUM 2.3 mg/dL (1.8-2.4); PHOSPHORUS 4.8 mg/dL (2.5-4.9)
[2017-07-07] MEDS: POTASSIUM CHLORIDE 10 MEQ TABLET.SA PO SCH (08:19)
[2017-07-07] MEDS: FERROUS SULFATE (325 MG) 325 MG/TAB TABLET PO SCH ×2 (08:19→17:15)
[2017-07-07] MEDS: FOLIC ACID 1 MG TABLET PO SCH (08:19)
[2017-07-07] MEDS: DOCUSATE SODIUM 100 MG CAPSULE PO SCH ×2 (08:19→17:15)
[2017-07-07] MEDS: FAMOTIDINE (20 MG) 20 MG TABLET PO SCH (08:20)
[2017-07-07] MEDS: PROSOURCE / PROSTAT (PYXIS) 30 ML UDC PO SCH (08:20)
[2017-07-07] MEDS: ASCORBIC ACID 500 MG TABLET PO SCH (08:20)
[2017-07-07] MEDS: MULTIVIT, IRON, MIN NO. 8, FA 1 TAB PO SCH (08:20)
[2017-07-07] MEDS: VITAMIN E 400 UNIT CAPSULE PO SCH (08:20)
--- NOTE | 2017-07-07 08:27 | NUR ---
SEEN AND EVALUATED BY DR. ROJAS AT BEDSIDE.
[2017-07-07] MEDS ORDERED: BUMETANIDE INJ 1 MG in IV NS 0.9% 40 ML IV ONE (08:30)
--- NOTE | 2017-07-07 08:45 | NUR ---
QUALITY CONTROL ENGINEERING TECHNICIAN NOTES RECEIVED PATIENT FROM [facility] DUE TO AMS , RESPIRATORY DISTRESS , AND LOW H/H , RESPONSIVE TO VERBAL STIMULI , ON 15LPM NON REBREATHER MASK WITH SPO2 OF 100% , ST 105 ON BEDSIDE MONITOR , FC DRAINING WELL VIA GRAVITY , ELIJAH PICC LINE WITH D5NS @ 80ML/HR INFUSING WELL , TRANSFER ORDERS RECEIVED WILL CONTINUE TO MONITOR
[2017-07-07] MEDS: METOPROLOL TARTRATE 50 MG TABLET PO SCH ×2 (09:00→17:14)
[2017-07-07] MEDS: ESCITALOPRAM OXALATE (10 MG) 10 MG TABLET PO SCH (09:00)
[2017-07-07] MEDS: FLUCONAZOLE (100 MG) 100 MG TABLET PO SCH (09:00)
[2017-07-07] MEDS: COD LIVER OIL/ZINC OXIDE 120 GM TUBE TP SCH (09:00)
[2017-07-07] MEDS ORDERED: BUMETANIDE INJ 0.25 MG/ML VIAL IV ONE ×6 (09:00→21:00)
[2017-07-07] MEDS: FLUTICASONE/VILANTEROL 1 EACH BLST.W.DEV IH SCH (09:00)
--- NOTE | 2017-07-07 09:05 | NUR ---
RN NOTES TRANSFERRED PATIENT TO ICU. I GAVE REPORT TO ENIO ALEJANDRO AT BEDSIDE. DR. ROJAS ORDERED THE TRANSFER BECAUSE O2 SAT WAS GOING TO 75% WITH A NON REBREATHING MASK AT 6 LPM. PATIENT A/ O X 1-2. PATIENT IS CONFUSED AND IS NOT ABLE TO UNDERSTAND HER NEEDS. MID LINE INTACT AND PATENT. MD AND CHARGE NURSE AWARE.
[2017-07-07] MEDS: methylPREDNISolone SOD SUCC 40 MG/ML VIAL IV SCH ×2 (09:11→12:23)
--- NOTE | 2017-07-07 09:30 | NUR ---
CORRESPONDENCE SECTION SUPERVISOR NOTES SEEN AND EVALUATED BY DR ROJAS , DISCUSSED LABS , PT IS MORE CALM TOLERATING 15LPM NON RE BREATHER MASK WITH NO S/S OF DISTRESS , PENDING 1 UNIT PRBC , BP WNL , AFEBRILE , PLACED PT ON NPO STATUS DUE TO AMS , MD AWARE .
[2017-07-07 09:31] LABS: BAND % (MANUAL) 2 % (0.0-5.0); EOSINOPHILS % (MANUAL) 2 % (0-4); LYMPHOCYTES % (MANUAL) 7 % (16-48); MONOCYTES % (MANUAL) 3 % (0-11.0); NEUTROPHILS % (MANUAL) 86 (42-76)
--- NOTE | 2017-07-07 09:56 | NUR ---
SURFACE SUPERVISOR NOTES P.O MEDS HELD , PT IS ALTERED , HIGH ASPIRATION RISK , MD AWARE
--- NOTE | 2017-07-07 12:15 | NUR ---
RED HAT ENGINEER NOTES PT STABLE POST 15 MINUTES INITIATING BT , NO TRANSFUSION REACTION NOTED , V/S STABLE AFEBRILE , WILL CONTINUE TO MONITOR
--- NOTE | 2017-07-07 14:09 | NUR ---
CUSTOMER RECORDS DIVISION SUPERVISOR NOTES DR GOLDSTEIN AT BEDSIDE , DISCUSSED PT TRANSFERRED DUE TO AMS WITH EPISODES OF DISTRESS LAST NIGHT WITH LOW O2 SAT ON 6LPM NC , LABS , ABG , CHEX XRAY , WITH ONGOING 1 UNIT PRBC DUE TO ANEMIA , DR ROJAS ORDERED BIPAP , PER MD CONTINUE NON REBREATHER @ 15LPM .
--- NOTE | 2017-07-07 15:30 | NUR ---
TOOTH CUTTER PINION NOTES DR RAYGOZA AND DR GOLDSTEIN AT BEDSIDE , DISCUSSED LABS , PT IS MORE AWAKE ALERT X 2-3 , SPO2 OF 100% VIA 15LPM NON REBREATHER MASK , AFEBRILE , BP 160'S , VERIFIED WITH DR GOLDSTEIN IF HE WANTS TO CONTINUE IVF OF D5NS @ 80ML/HR , PT HAS LARGE PULMONARY EDEMA , PER DC IVF AND CHANGE IT TO TKO , OK FOR NPO EXCEPT MEDS , AND CHANGE CODE STATUS TO FULL CODE PER (SON) KEIRA REQUEST .
--- NOTE | 2017-07-07 16:30 | NUR ---
PRODUCTION POSTING CLERK NOTES SPOKE WITH DR RAYGOZA , RECOMMENDING TO FRONT CLERK , DR PEARSON TO GIVE MORE DOSE OF DIURETICS DUE TO LARGE PULMONARY EDEMA , SPOKE WITH DR PEARSON , PER FRONT CLERK DEFER TO RENAL , CALLED [facility] AND PAGED DR RICH , LEFT A MESSAGE , AWAITING FOR CALL BACK
[2017-07-07] MEDS ORDERED: EPOETIN ALFA (20,000 UNIT) 20,000 UNIT/ML VIAL SQ SCH (17:00)
[2017-07-07] MEDS: IV NS 0.9% 250 ML IV PRN (17:48)
[2017-07-07 18:13] LABS: HEMOGLOBIN 7.9 g/dL (11.5-14.8)
--- NOTE | 2017-07-07 19:23 | NUR ---
BOILER/CHILLER OPERATOR NOTES CALLED DR PEARSON , NOTIFIED BP BP IS 180-190'S MANUALLY CHECKED , BP IS 170/85 , PER MD GIVE BUMEX 2MG IVP AND NITRO PASTE 2 INCHES BID , PT NEGATIVE FLUID BALANCE WITH UO OF 600M . AWARE
[2017-07-07] MEDS ORDERED: NITROGLYCERIN 30 GM TUBE TP SCH (19:30)
--- NOTE | 2017-07-07 19:45 | NUR ---
ICU/MANAGER MARKET NOTIFIED CHARGE NURSE ABOUT ORDER FOR BUMEX 1MG IVP NOW, PT'S BLOOD PRESSURE IS ELEVATED 190'S. MD WAS CALLED DAY SHIFT NURSE CALLED JEFERSON GAVE ORDER FOR BUMEX 2 MG IVP POST BLOOD TRANSFUSION. PT IS RESTLESS, PT STATED SHE "WANTS TO BE KNOCKED OUT." EXPLAIN THAT THAT IS NOT AN OPTION DUE TO EARLIER PT WAS ADMITTED FOR ALOC INTO THE ICU. WILL CONTINUE TO MONITOR THIS PT.
[2017-07-07] MEDS ORDERED: NITROGLYCERIN PACKET 1 GM PACKET TD SCH (20:00)
--- NOTE | 2017-07-07 20:20 | NUR ---
ICU/SUPPLY CHAIN ASSOCIATE 1 UNIT PRBC WAS GIVEN PER MD ORDERS, H/H CAME BACK AT @1800 7.07/29. WILL CONTINUE TO MONITOR THIS PT.
[2017-07-07] MEDS: HYDROCODONE/APAP 5/325MG 1 EACH TABLET PO PRN (20:37)
--- NOTE | 2017-07-07 20:43 | NUR ---
ICU/CORRECTION OFFICER PT HAS RIGHT HAND/ARM SPLINT DUE TO FRACTURE FROM A FALL. PT CONTINUES TO MOAN IN PAIN, PT WAS ABLE TO SWALLOW APPLE SAUCE AND DRINK WATER WITHOUT ANY PROBLEMS. PT WAS GIVEN NORCO 1 TAB FOR THIS PAIN TO THE RIGHT ARM RATED 8/10. WILL CONTINUE TO MONITOR THIS PT.
--- NOTE | 2017-07-07 21:28 | NUR ---
ICU/ORCHID GROWER CALLED DR.TIM JOINER FOR ORDERS PRN BLOOD PRESSURE IS ELEVATED AT 200'S PT HAS BEEN GIVEN LOPRESSOR, BUMEX, NORCO HOWEVER BLOOD PRESSURE REMAINS ELEVATED AT 203/120 AND 225/111. GOT ORDER FOR PRN HYDRALAZINE FOR BLOOD PRESSURE GREATER THAN 160. CHARGE AWARE FOR THIS ORDER.
[2017-07-07] MEDS ORDERED: hydrALAZINE HCL IV 20 MG VIAL ONE (21:37)
[2017-07-07] MEDS: hydrALAZINE HCL IV 20 MG VIAL IV PRN (22:00)
[2017-07-07] MEDS: ATORVASTATIN 10 MG TABLET PO SCH (22:08)
--- NOTE | 2017-07-07 22:18 | NUR ---
ICU/PET COUNSELOR HYDRALAZINE 10MG GIVEN IVP FOR ELEVATED BLOOD PRESSURE, HOWEVER BLOOD PRESSURE IS STILL INCREASED TO 180'S DOWN FROM THE 200'S FROM EARLIER HOWEVER WILL STILL MONITOR THIS PT.
[2017-07-08] VITALS (34 sets, daily range): BP systolic 159–213; BP diastolic 70–148
[2017-07-08] MEDS: IV NS 0.9% 250 ML IV PRN (02:45)
[2017-07-08] MEDS: HYDROCODONE/APAP 5/325MG 1 EACH TABLET PO PRN ×3 (02:50→13:32)
--- NOTE | 2017-07-08 02:56 | NUR ---
ICU/OIL DISTRIBUTOR PT HAS RIGHT HAND/ARM SPLINT DUE TO FRACTURE FROM A FALL. PT CONTINUES TO MOAN IN PAIN, PT WAS ABLE TO SWALLOW APPLE SAUCE AND DRINK WATER WITHOUT ANY PROBLEMS. PT WAS GIVEN NORCO 1 TAB FOR THIS PAIN TO THE RIGHT ARM RATED 8/10. WILL CONTINUE TO MONITOR THIS PT. CALL LIGHT WITHIN REACH
[2017-07-08] MEDS ORDERED: hydrALAZINE HCL IV 20 MG VIAL ONE (03:03)
[2017-07-08] MEDS: ALBUTEROL FS 2.5 MG/0.5 ML VIAL.NEB NEB SCH ×6 (03:04→23:46)
[2017-07-08] MEDS: IPRATROPIUM NEB FS 0.5 MG/2.5 ML AMPUL.NEB NEB SCH ×6 (03:04→23:46)
--- NOTE | 2017-07-08 03:05 | NUR ---
ICU/SPOUT LINER HELPER HYDRALAZINE 10MG GIVEN IVP BY CHARGE NURSE FOR BLOOD PRESSURE 213/109. PT WAS GIVEN AM CARE, PT WAS ALSO TURNED AND REPOSITIONED FOR COMFORT AND CARE. WILL CONTINUE TO MONITOR THIS PT.
[2017-07-08 04:46] LABS: BASOPHILS % (AUTO) 0.1 % (0.0-2.0); EOSINOPHILS % (AUTO) 0.1 % (0.0-6.0); HEMATOCRIT 30 % (33-45); HEMOGLOBIN 10.2 g/dL (11.5-14.8); LYMPHOCYTES # (AUTO) 0.5 /CMM (0.8-4.8); LYMPHOCYTES % (AUTO) 3.6 % (20.0-44.0); MEAN CORPUSCULAR HEMOGLOBIN 31 PG (26.0-33.0); MEAN CORPUSCULAR HGB CONC 34 g/dl (31.0-36.0); MEAN CORPUSCULAR VOLUME 91 fL (82-100); MONOCYTES # (AUTO) 0.7 /CMM (0.1-1.30); MONOCYTES % (AUTO) 4.7 % (2.0-12.0); NEUTROPHILS # (AUTO) 13.9 /CMM (1.8-8.9); NEUTROPHILS % (AUTO) 91.5 % (43.0-81.0); PLATELET COUNT (AUTO) 454 /CMM (150-450); RDW COEFFICIENT OF VARIATION 18.9 (11.5-15.0); RED BLOOD CELL COUNT(AUTO) 3.29 MIL/uL (4.0-5.2); WHITE BLOOD COUNT (AUTO) 15.1 K/uL (4.3-11.0)
[2017-07-08 05:03] LABS: ALANINE AMINOTRANSFERASE 21 U/L (12-78); ALBUMIN 2.7 g/dL (3.4-5.0); ALKALINE PHOSPHATASE 70 U/L (46-116); ASPARTATE AMINOTRANSFERASE 27 U/L (15-37); BILIRUBIN,TOTAL 1.1 mg/dL (0.2-1.0); CALCIUM, SERUM 7.8 mg/dL (8.5-10.1); CARBON DIOXIDE 23 mmol/L (21-32); CHLORIDE 107 mmol/L (98-107); CREATININE 2.2 mg/dL (0.6-1.3); GLUCOSE 147 mg/dL (74-106); MAGNESIUM 2.2 mg/dL (1.8-2.4); PHOSPHORUS 3.9 mg/dL (2.5-4.9); POTASSIUM 4.3 mmol/L (3.5-5.1); SODIUM SERUM 143 mmol/L (136-145); TOTAL PROTEIN, SERUM 7.2 g/dL (6.4-8.2); UREA NITROGEN, BLOOD 43 mg/dL (7-18)
[2017-07-08 06:20] LABS: BAND % (MANUAL) 1 % (0.0-5.0); LYMPHOCYTES % (MANUAL) 4 % (16-48); MONOCYTES % (MANUAL) 5 % (0-11.0); NEUTROPHILS % (MANUAL) 90 (42-76)
[2017-07-08] MEDS ORDERED: HEPARIN INFUSION/D5W 500 ML IV ONE (06:23)
[2017-07-08 07:22] LABS: RHEUMATOID FACTOR SCREEN POSITIVE (NEG)
--- NOTE | 2017-07-08 07:30 | NUR ---
HHN DEFERRED AT THIS TIME PT ON 100% NON-REBREATHER MASK.
--- NOTE | 2017-07-08 07:31 | NUR ---
HARVEST WORKER FIELD CROP RECEIVED PATIENT AWAKE, MOANING FOR PAIN AFEBRILE ON NON REBREATHING MASK SATURATING 93% PLACED ON HIGH BACK REST BLOOD PRESSURE ON A HIGH SIDE AT 190'S SBP WITH MENCHACA CATHETER DRAINING TO UROBAG DRAINING TO YELLOWISH URINE AT A NORMAL AMOUNT MONITORED CLOSELY
[2017-07-08] MEDS: LEVOTHYROXINE SODIUM 75 MCG TABLET PO SCH (08:09)
[2017-07-08 08:18] LABS: ABG BASE EXCESS -2.5 mmol/L; ABG OXYGEN SATURATION 94.1 % (92.0-98.5); ABG PCO2 28.7 mmHg (35.0-45.0); ABG PH 7.467 (7.350-7.450); ABG PO2 75.2 mmHg (75.0-100.0); AaDO2 465.1 mmHg; COHb 0.1 % (0.5-1.5); MetHb 0.4 % (0.0-1.5); O2Hb 93.6 % (94.0-97.0); SITE, ABG Right Radial; VENT MODE, BG NRB
[2017-07-08] MEDS: PROSOURCE / PROSTAT (PYXIS) 30 ML UDC PO SCH (08:39)
[2017-07-08] MEDS: ESCITALOPRAM OXALATE (10 MG) 10 MG TABLET PO SCH (08:40)
[2017-07-08] MEDS: VITAMIN E 400 UNIT CAPSULE PO SCH (08:40)
[2017-07-08] MEDS: DOCUSATE SODIUM 100 MG CAPSULE PO SCH ×2 (08:41→16:39)
[2017-07-08] MEDS: FLUCONAZOLE (100 MG) 100 MG TABLET PO SCH (08:41)
[2017-07-08] MEDS: POTASSIUM CHLORIDE 10 MEQ TABLET.SA PO SCH (08:41)
[2017-07-08] MEDS: FOLIC ACID 1 MG TABLET PO SCH (08:41)
[2017-07-08] MEDS: ASCORBIC ACID 500 MG TABLET PO SCH (08:41)
[2017-07-08] MEDS: methylPREDNISolone SOD SUCC 40 MG/ML VIAL IV SCH (08:42)
[2017-07-08] MEDS: FAMOTIDINE (20 MG) 20 MG TABLET PO SCH (08:42)
[2017-07-08] MEDS: MULTIVIT, IRON, MIN NO. 8, FA 1 TAB PO SCH (08:42)
[2017-07-08] MEDS: COD LIVER OIL/ZINC OXIDE 120 GM TUBE TP SCH (08:44)
[2017-07-08] MEDS ORDERED: BUMETANIDE INJ 16 MG in IV NS 0.9% 16 ML IV ONE (09:30)
[2017-07-08] MEDS: hydrALAZINE HCL 50 MG TABLET PO SCH ×3 (10:00→16:39)
[2017-07-08] MEDS: ISOSORBIDE DINITRATE (20MG) 20 MG TABLET PO SCH ×2 (10:01→16:38)
[2017-07-08] MEDS: ACETAMINOPHEN 325 MG TABLET PO PRN (10:16)
[2017-07-08] MEDS: FLUTICASONE/VILANTEROL 1 EACH BLST.W.DEV IH SCH (12:04)
[2017-07-08] MEDS: PIPERACILLIN /TAZOBACTAM 2.25 G in IV D5W 50 ML IV SCH ×2 (13:32→17:15)
[2017-07-08] MEDS: hydrALAZINE HCL IV 20 MG VIAL IV PRN ×2 (16:49→21:15)
[2017-07-08] MEDS: BOOST GLUCOSE CONTROL VANILLA 237 ML BOX PO SCH (17:00)
[2017-07-08] MEDS ORDERED: BOOST GLUCOSE CONTROL VANILLA 237 ML BOX PO SCH (17:00)
[2017-07-08] MEDS: HYDROMORPHONE 1 MG/1 ML DISP.SYRIN IV PRN (18:00)
--- NOTE | 2017-07-08 19:45 | NUR ---
ICU/RESIDENTIAL AIDE RECEIVED REPORT FROM DAY NURSE, PT IS RESPONSIVE TO NAME, HAD BEEN GIVEN DILAUDID 0.5MG IVP FROM DAY NURSE @1800. PT'S HEART RATE IS ELEVATED TO 100'S -110'S. BLOOD PRESSURE CONTINUES TO BE AND ISSUE DESPITE THE MANY MEDICATIONS GIVEN. CUFF IS ON LEG DUE TO RIGHT SIDE MASTECTOMY AND PICC LINE IN LEFT UPPER ARM. PT HAS MENCHACA CATH DRAINING YELLOW URINE. PT HAS A FEW SKIN ISSUES THAT ARE ADDRESSED ON THE FLOW SHEET. PT WAS TURNED AND REPOSITIONED FOR COMFORT AND CARE.
--- NOTE | 2017-07-08 20:10 | NUR ---
ICU/COUNTRY SALES MANAGER PT RECEIVED A BREATHING TREATMENT FROM RT, PT REMAINS ON 15 LITERS NON REBREATHER MASK. SATURATION IS 95%. PT HAS A NON PRODUCTIVE COUGH, LUNGS SOUND CLEAR WITH SOME UPPER RHONI TO RIGHT UPPER LUNG FIELD. WILL CONTINUE TO MONITOR THIS PT.
[2017-07-08] MEDS: ATORVASTATIN 10 MG TABLET PO SCH (21:15)
--- NOTE | 2017-07-08 21:21 | NUR ---
ICU/CORRECTIONAL SERGEANT CHARGE NURSE NOTIFIED ABOUT ELEVATED BLOOD PRESSURE 193/117. HYDRALAZINE 10MG GIVEN IVP FOR THIS BY CHARGE NURSE.WILL MONITOR BLOOD PRESSURE. HOWEVER BLOOD PRESSURE IS STILL REMAINS INCREASED TO 190'S . CHARGE NURSE AWARE OF THIS, PT WAS TURNED AND REPOSITIONED FOR COMFORT AND CARE.
[2017-07-09] VITALS (21 sets, daily range): BP systolic 128–201; BP diastolic 55–134
[2017-07-09] MEDS: PIPERACILLIN /TAZOBACTAM 2.25 G in IV D5W 50 ML IV SCH ×2 (00:15→05:03)
[2017-07-09] MEDS: hydrALAZINE HCL IV 20 MG VIAL IV PRN ×2 (01:22→08:47)
--- NOTE | 2017-07-09 01:25 | NUR ---
ICU/MANAGED CARE NURSE CHARGE NURSE NOTIFIED ABOUT ELEVATED BLOOD PRESSURE 161/134. HYDRALAZINE 10MG GIVEN IVP FOR THIS BY CHARGE NURSE.WILL MONITOR BLOOD PRESSURE. HOWEVER BLOOD PRESSURE IS STILL REMAINS INCREASED TO 160'S-190'S . CHARGE NURSE AWARE OF THIS, PT WAS TURNED AND REPOSITIONED FOR COMFORT AND CARE.
[2017-07-09] MEDS: HYDROCODONE/APAP 5/325MG 1 EACH TABLET PO PRN (01:45)
--- NOTE | 2017-07-09 02:45 | NUR ---
ICU/COOPERER PT WAS COMPLAINING ABOUT PAIN TO HAND RATED 7/10, NORCO WAS CRUSHED AND PLACED INTO APPLESAUCE. PT TOLERATED THIS WELL. WILL CONTINUE TO MONITOR PT'S PAIN. PT WAS TURNED AND REPOSITIONED FOR COMFORT AND CARE
[2017-07-09] MEDS: IPRATROPIUM NEB FS 0.5 MG/2.5 ML AMPUL.NEB NEB SCH ×3 (03:01→10:52)
[2017-07-09] MEDS: ALBUTEROL FS 2.5 MG/0.5 ML VIAL.NEB NEB SCH ×3 (03:01→10:52)
[2017-07-09] MEDS: HYDROMORPHONE 1 MG/1 ML DISP.SYRIN IV PRN ×2 (04:10→11:09)
--- NOTE | 2017-07-09 04:20 | NUR ---
ICU/MULE DEVELOPER PT'S BLOOD PRESSURE IS IN THE 200'S CHARGE NURSE AWARE, PT WAS GIVEN DILAUDID 0.5MG IVP FOR THIS. PT APPEARS TO BE IN PAIN. PT WAS TURNED AND REPOSITIONED FOR COMFORT AND CARE. WILL CONTINUE TO MONITOR PT'S BLOOD PRESSURE.
[2017-07-09 05:08] LABS: BASOPHILS % (AUTO) 0.1 % (0.0-2.0); EOSINOPHILS % (AUTO) 0.2 % (0.0-6.0); HEMATOCRIT 30 % (33-45); LYMPHOCYTES # (AUTO) 0.6 /CMM (0.8-4.8); LYMPHOCYTES % (AUTO) 3.7 % (20.0-44.0); MEAN CORPUSCULAR HEMOGLOBIN 31 PG (26.0-33.0); MEAN CORPUSCULAR HGB CONC 34 g/dl (31.0-36.0); MEAN CORPUSCULAR VOLUME 91 fL (82-100); MONOCYTES # (AUTO) 1.1 /CMM (0.1-1.30); MONOCYTES % (AUTO) 6.7 % (2.0-12.0); NEUTROPHILS # (AUTO) 14.5 /CMM (1.8-8.9); NEUTROPHILS % (AUTO) 89.3 % (43.0-81.0); PLATELET COUNT (AUTO) 386 /CMM (150-450); RDW COEFFICIENT OF VARIATION 19.5 (11.5-15.0); RED BLOOD CELL COUNT(AUTO) 3.23 MIL/uL (4.0-5.2); WHITE BLOOD COUNT (AUTO) 16.3 K/uL (4.3-11.0)
[2017-07-09 05:25] LABS: CALCIUM, SERUM 8.2 mg/dL (8.5-10.1); CARBON DIOXIDE 29 mmol/L (21-32); CHLORIDE 106 mmol/L (98-107); CREATININE 2.3 mg/dL (0.6-1.3); GLUCOSE 113 mg/dL (74-106); POTASSIUM 3.4 mmol/L (3.5-5.1); SODIUM SERUM 146 mmol/L (136-145); UREA NITROGEN, BLOOD 48 mg/dL (7-18)
[2017-07-09] MEDS: LEVOTHYROXINE SODIUM 75 MCG TABLET PO SCH (07:30)
[2017-07-09] MEDS: BOOST GLUCOSE CONTROL VANILLA 237 ML BOX PO SCH (08:18)
[2017-07-09] MEDS: methylPREDNISolone SOD SUCC 40 MG/ML VIAL IV SCH (08:48)
[2017-07-09] MEDS: POTASSIUM CHLORIDE 10 MEQ TABLET.SA PO SCH (09:00)
[2017-07-09] MEDS: COD LIVER OIL/ZINC OXIDE 120 GM TUBE TP SCH (09:00)
[2017-07-09] MEDS: ISOSORBIDE DINITRATE (20MG) 20 MG TABLET PO SCH (09:00)
[2017-07-09] MEDS: FAMOTIDINE (20 MG) 20 MG TABLET PO SCH (09:00)
[2017-07-09] MEDS: ASCORBIC ACID 500 MG TABLET PO SCH (09:00)
[2017-07-09] MEDS: FLUTICASONE/VILANTEROL 1 EACH BLST.W.DEV IH SCH (09:00)
[2017-07-09] MEDS: FLUCONAZOLE (100 MG) 100 MG TABLET PO SCH (09:00)
[2017-07-09] MEDS: hydrALAZINE HCL 50 MG TABLET PO SCH (09:00)
[2017-07-09] MEDS: DOCUSATE SODIUM 100 MG CAPSULE PO SCH (09:00)
[2017-07-09] MEDS: MULTIVIT, IRON, MIN NO. 8, FA 1 TAB PO SCH (09:00)
[2017-07-09] MEDS: ESCITALOPRAM OXALATE (10 MG) 10 MG TABLET PO SCH (09:00)
[2017-07-09] MEDS: VITAMIN E 400 UNIT CAPSULE PO SCH (09:00)
[2017-07-09] MEDS: PROSOURCE / PROSTAT (PYXIS) 30 ML UDC PO SCH (09:00)
[2017-07-09] MEDS: FOLIC ACID 1 MG TABLET PO SCH (09:00)
--- NOTE | 2017-07-09 09:00 | NUR ---
ICU/RN - Notes Unable to administer PO medications. Pt very restless at this time, at high risk for aspiration.
[2017-07-09 09:16] LABS: ABG BASE EXCESS 3.7 mmol/L; ABG OXYGEN SATURATION 83.1 % (92.0-98.5); ABG PCO2 30.7 mmHg (35.0-45.0); ABG PH 7.543 (7.350-7.450); ABG PO2 44.3 mmHg (75.0-100.0); AaDO2 493.9 mmHg; COHb 0.7 % (0.5-1.5); MetHb 0.9 % (0.0-1.5); O2Hb 81.8 % (94.0-97.0); SITE, ABG Right Brachial; VENT MODE, BG NRB
--- NOTE | 2017-07-09 09:30 | NUR ---
ICU/RN - Notes Pt tachycardic 120's and hypertensive with BP 178/78. Apresoline 10mg IVP administered as ordered. Pt increasingly restless. O2 saturation low 90's on 10L via nonrebreather. ABG done and critical values relayed to Dr Fong. Dr Fong spoke with family regarding pt's current status via phone. Family wants to be at bedside and discuss with MD plan of care. Awaiting for family's arrival at this time.
--- NOTE | 2017-07-09 10:52 | NUR ---
RT MED NOTE HHN TX HELD S/P DESATURATION OFF NRB MASK @ 15LPM.
[2017-07-09] MEDS: MORPHINE SULFATE INJ 2 MG/ML DISP.SYRIN IV PRN ×3 (11:52→17:34)
[2017-07-09] MEDS: LORAZEPAM INJ 2 MG/ML VIAL IV PRN ×4 (11:52→21:45)
--- NOTE | 2017-07-09 12:00 | NUR ---
ICU/RN - Notes Pt on comfort care as decided by family, with orders for comfort measures only. Pt noted to be tachycardic, hypertensive, while on NRB @ 10lpm. Pt moaning and restless. Administered Morphine 2mg IVP and Ativan 1mg IVP as ordered. Family at bedside.
--- NOTE | 2017-07-09 13:00 | NUR ---
ICU/RN - Notes Pt medicated with Morphine 2mg IVP as pt still manifests in pain, with moaning and facial grimacing. Family at bedside.
--- NOTE | 2017-07-09 13:45 | NUR ---
ICU/RN - Notes Pt noted to be in distress, with HR 109, BP elevated, and moaning. Ativan 1mg IVP given as ordered.
[2017-07-09] MEDS ORDERED: LORAZEPAM INJ 2 MG/ML VIAL ONE (17:31)
--- NOTE | 2017-07-09 17:35 | NUR ---
ICU/RN - Notes Pt medicated with Morphine 2mg IVP and Ativan 1mg IVP as pt manifests in discomfort. Pt moaning, BP elevated, and appears in discomfort.
--- NOTE | 2017-07-09 17:45 | NUR ---
ICU/RN - Transfer Pt transferred to [facility] [id number]. Report given to Daphne ALEJANDRO for continuity of care. Pt's son Omari called and message left notifying of transfer. All belongings taken with pt.
--- NOTE | 2017-07-09 18:00 | NUR ---
MS RN NOTES RECEIVED PATIENT IN BED RESTING NO SOB OR ACUTE DISTRESS. PATIENT APPEARS COMFORTABLE. PICC LINE ON DINORA INTACT PATENT. BED IN LOW LOCKED POSITION, CALL LIGHT WITHIN REACH WILL CONTINUE TO MONITOR.
[2017-07-09] MEDS ORDERED: KEY,NONCONTROL,TO KEEP IN PYXI 1 EA MC ONE (18:48)
--- NOTE | 2017-07-09 20:30 | NUR ---
MS RN NOTE RECEIVED PATIENT FROM DAY SHIFT, PATIENT IS NON-VERBAL, ON BED REST, COMFORT CARE ONLY. HAS AN ORDER OF Q1H ATIVAN AND MORPHINE PRN. PICC LINE ON LEFT UPPER ARM, KVO. SRX2, BED IN LOW POSITION, CALL LIGHT WITHIN REACH, WILL CONTINUE TO MONITOR PATIENT.
--- NOTE | 2017-07-09 21:45 | NUR ---
MS RN NOTE ATIVAN 1MG IVP GIVEN PER PATIENT'S BP IS HIGH, LOOKS DISCOMFORT, AND MOANS. WILL MONITOR EFFECTIVENESS.
[2017-07-10] MEDS: IV NS 0.9% 250 ML IV PRN (00:36)
[2017-07-10] MEDS ORDERED: MORPHINE SULFATE INJ 4 MG/ML DISP.SYRIN ONE ×2 (00:44→05:07)
--- NOTE | 2017-07-10 00:45 | NUR ---
MS RN NOTE MORPHINE 2MG IVP GIVEN PER PATIENT KEEPS MOANING. WILL MONITOR EFFECTIVENESS.
[2017-07-10] MEDS: MORPHINE SULFATE INJ 4 MG/ML DISP.SYRIN IV PRN ×5 (00:46→13:16)
[2017-07-10] MEDS: LORAZEPAM INJ 2 MG/ML VIAL IV PRN ×5 (03:36→13:15)
--- NOTE | 2017-07-10 05:15 | NUR ---
MS RN NOTE PATIENT KEEPS MOANING, MAKING NOISES, DOESN'T LOOK COMFORT. MORPHINE 2MG IVP GIVEN. WILL MONITOR EFFECTIVENESS.
--- NOTE | 2017-07-10 06:51 | NUR ---
MS RN NOTE PATIENT IS RESTING AND BREATHING COMFORTABLY, MAKES MOANING SOUND SOMETIMES, WILL ENDORSE TO DAY SHIFT NURSE FOR PATRICE.
--- NOTE | 2017-07-10 07:25 | NUR ---
RN MS NOTES PATIENT IS RESTING COMFORTABLY, SLEEPING AT THIS TIME, BREATHING UNLABORED, NO S/SX OF DISTRESS NOTED, NEEDS ATTENDED AND ANTICIPATED FOR, BED LOW AND LOCKED, SIDERAILS X2 UP, CALL LIGHT WITHIN REACH, WILL CONTINUE TO MONITOR.
[2017-07-10 08:00] VITALS: BP 170/79
--- NOTE | 2017-07-10 11:22 | NUR ---
JAVON OTTO NOTES PATIENT SLEEPING, RESTING COMFORTABLY, ATIVAN AND MORPHINE GIVEN Q1HR AND EFFECTIVE, NO RESTLESS NOTED, FAMILY AT BEDSIDE. Addendum: 07/10/17 at 1123 by WILLIAM TAN RN CORRECTION: NO RESTLESSNESS NOTED
[2017-07-10] MEDS: MORPHINE SULFATE PF DRIP 250 MG in IV D5W 240 ML IV PRN ×4 (14:38→18:10)
--- NOTE | 2017-07-10 14:47 | NUR ---
RN MS NOTES RECEIVED ORDER FROM DR. PEARSON TO PLACE PATIENT ON MORPHINE DRIP, PATIENT APPEARS TO BE RESTLESS, FAMILY AT BEDSIDE.
--- NOTE | 2017-07-10 15:47 | NUR ---
RN MS NOTES PATIENT MOANING AND RESTLESS, MORPHINE DRIP RATE INCREASED TO 4ML/HR. FAMILY AT BEDSIDE
[2017-07-10 16:00] VITALS: BP 128/63
--- NOTE | 2017-07-10 17:05 | NUR ---
RN MS NOTES MORPHINE RATE INCREASED FOR COMFORT.
--- NOTE | 2017-07-10 18:10 | NUR ---
RN MS NOTES PATIENT NOTED WITH AGONAL BREATHING, ON O2 AT 4LPM VIA NC FOR COMFORT MEASURES, MORPHINE RATE INCREASED FOR COMFORT.
--- NOTE | 2017-07-10 18:22 | NUR ---
JAVON OTTO NOTES PATIENT RESTING, ENSURE SAFETY AND COMFORT, STILL NOTED WITH AGONAL BREATHING, WILL CONTINUE TO MONITOR. Addendum: 07/10/17 at 1828 by WILLIAM TAN RN ADDENDUM: WILL ENDORSE TO KAIAWHINA KURA KAUPAPA MAORI FOR PATRICE.
--- NOTE | 2017-07-10 19:35 | NUR ---
MS RN NOTE RECEIVED PATIENT FROM DAY SHIFT, PATIENT IS NON-VERBAL, GETTING MORPHINE DRIP 6MG FOR COMFORT MEASURE. LEFT UPPER PICC IS PATENT AND INTACT, GETTING TKO AND DRIP. SRX2, BED IN LOW POSITION, CALL LIGHT WITHIN REACH, WILL CONTINUE TO MONITOR PATIENT.
[2017-07-10 20:00] VITALS: BP 100/65
--- NOTE | 2017-07-11 02:00 | NUR ---
RN NOTES POST MORTEM CARE GIVEN , AND REMAINS BROUGHT TO [facility] [place].
[2017-07-11] MEDS: IV NS 0.9% 250 ML IV PRN (03:57)
[2017-07-11] MEDS: MORPHINE SULFATE PF DRIP 250 MG in IV D5W 240 ML IV PRN ×3 (05:10→20:03)
--- NOTE | 2017-07-11 05:15 | NUR ---
MS RN NOTE PATIENT SHOWS WITH AGONAL BREATHING, ON O2 AT 4LPM VIA NC FOR COMFORT MEASURES, MORPHINE RATE INCREASED TO 7MG/HR FOR COMFORT.
--- NOTE | 2017-07-11 06:30 | NUR ---
MS RN NOTE PATIENT SHOWS AGONAL BREATHING, ON O2 AT 4LPM VIA NC, MORPHINE RATE INCREASED TO 8MG/HR FOR COMFORT. ORAL SUCTION AND CARE PERFORMED ALONG WITH MORNING CARE, Q2H TURN AND REPOSITION PERFORMED WELL. NOTIFIED HER FAMILY ABOUT HER CURRENT CONDITION. WILL ENDORSE TO DAY SHIFT NURSE FOR PATRICE.
--- NOTE | 2017-07-11 07:52 | NUR ---
RN OPENING NOTES RECEIVED PATIENT RESTING COMFORTABLY IN BED WITH EYES CLOSED. PATIENT DIFFICULT TO AROUSE. PATIENT ON HOSPICE CARE. CARE PLAN TO KEEP PATIENT COMFORTABLE. PATIENT IS NO-VERBAL, AOX0. ELIJAH PICC LINE WITH MORPHINE DRIP RUNNING AT 8MG/HR. PATIENT HAS SHALLOW BREATHING WITH EPISODES OF APNEA NOTED. PATIENT ON 4L/MIN FOR COMFORT. BED LOCKED IN THE LOWEST POSITION WITH SIDE RAILS UP X2. WILL CONTINUE TO MONITOR AND ASSESS PATIENT.
--- NOTE | 2017-07-11 09:50 | NUR ---
RN NOTES SEEN BY DR. GOLDSTEIN DISCUSSED TITRATING MORPHINE DRIP. DR. GOLDSTEIN STATED NO NEED PATIENT IS COMFORTABLE AND ONLY DISPLAYING AGONAL BREATHES. WILL NOTIFIE ELEMENTARY LIBRARIAN.
[2017-07-11] MEDS ORDERED: KEY,NONCONTROL,TO KEEP IN PYXI 1 EA MC ONE ×3 (15:19→19:53)
--- NOTE | 2017-07-11 15:32 | NUR ---
RN NON ADMIN NOTES [facility]MNICE[facility] KEYS RETURNED TO [facility] AFTER LOCKING AWAY NARCOTICS WITH ANOTHER RN.
[2017-07-11] MEDS: SCOPOLAMINE HBR 1 EA PATCH.TD72 TD SCH ×2 (19:00→21:02)
--- NOTE | 2017-07-11 19:44 | NUR ---
RN CLOSING NOTES PATIENT RESTING COMFORTABLY IN BED ON COMFORT CARE. PATIENT ON MORPHINE DRIP AT 8MG/HR. NEW IV MORHINE BAG PLACED AND WITNESSED BY 2 RNS (CIPRIANO AND JAMES). PATIENT RESPIRATIONS ARE LABORED AND UNEVEN. PATIENT IS ON 4L/MIN. IV NS RUNNING AT 10 ML/HR TKO. BED LOCKED IN THE LOWEST POSITION. ALL COMFORT MEASURES IMPLEMENTED. WILL GIVE REPORT TO NIGHT RN FOR PATRICE.
--- NOTE | 2017-07-11 19:45 | NUR ---
RN NOTES RECEIVED PT ASLEEP, HOB ELEVATED, APPEARS COMFORTABLE, NO SIGNS OF DISTRESS AND DISCOMFORT NOTED. PT ON O2 INHALATION VIA NC WITH O2 SAT OF 88%, SHALLOW BREATHING NOTED WITH RATE AT 6 BREATHS/MIN. PICC LINE ON LEFT UPPER ARM PATENT AND INTACT WITH ONGOING MORPHINE DRIP AT 8 MG/HR INFUSING WELL. MENCHACA CATH INTACT WITH SMALL AMOUNT OF YELLOW URINE OUTPUT NOTED. WILL CONTINUE WITH COMFORT CARE.
[2017-07-11 20:32] VITALS: BP 80/66
--- NOTE | 2017-07-11 21:10 | NUR ---
RN NOTES PT STILL NOTED WITH SHALLOW BREATHING 5/MIN., APPEARS COMFORTABLE IN BED, NOT IN DISTRESS. WILL CONTINUE TO MONITOR PT.
--- NOTE | 2017-07-11 22:10 | NUR ---
RN NOTES FAMILY OF PT CAME, SONS AND DAUGHTER AT BEDSIDE. PT APPEARS COMFORTABLE IN BED, STILL WITH SHALLOW BREATHING. FAMILY STAYED WITH THE PT FOR A WHILE.
--- NOTE | 2017-07-11 22:50 | NUR ---
RN NOTES DR ROJAS CAME AND VISIT THE PT, FAMILY AT BEDSIDE. NO NEW ORDERS MADE.
--- NOTE | 2017-07-11 23:50 | NUR ---
RN NOTES PT NOTED WITH GASPING BREATHING 3/MIN, VITALS SIGNS UNABLE TO APPRECIATE, HANDS, ARMS, FEET AND LEGS STARTS GETTING COLD. MORPHINE DRIP STILL INFUSING AT 8MG/HR. WILL STAY WITH THE PT .
--- NOTE | 2017-07-12 00:15 | NUR ---
RN NOTES PT STOPS BREATHING, CHARGE NURSE MADE AWARE. PT WAS ASSESSED VITAL SIGNS NOT APPRECIATED, NO HEART BEAT NOTED ON THE MONITOR AND PUPILS ARE DILATED NON REACTIVE TO LIGHT. DR ROJAS WAS PAGED TO INFORM PT HAS .
--- NOTE | 2017-07-12 00:22 | NUR ---
RN NOTES CALLED SON KEIRA, NO ANSWER RECEIVED WILL CALL AGAIN LATER. CALLED [facility] SPOKE TO KEYA WITH REFERENCE NUMBER AND CASE NUMBER GIVEN [id number].
--- NOTE | 2017-07-12 00:25 | NUR ---
RN NOTES SPOKE TO DR ROJAS, MADE HIM AWARE NO VITAL SIGNS APPRECIATED AND NO HEART BEAT, PUPILS ARE DILATED.PT AT 0015.
--- NOTE | 2017-07-12 00:35 | NUR ---
RN NOTES SPOKE TO SON KEIRA MADE HIM AWARE PT AT 0015. FAMILY ARE THANKFUL FOR THE CARE GIVEN TO THE PT ON HER STAY HERE.
== END 2017-07-12 00:15 | disposition expired | DRG 811 ==
LOC: ER 14:58 → TELE1 17:00 → MEDSG1 06-28 08:48 → ICU 07-07 09:33 → MED 07-09 17:22
PROVIDERS: ADMIT Family Medicine; ATTEND Family Medicine
PROC: 30233N1 Transfusion of Nonautologous Red Blood Cells into Peripheral Vein, Percutaneous Approach (ICD-10-PCS; principal; 2017-06-27)
PROC: 02HV33Z Insertion of Infusion Device into Superior Vena Cava, Percutaneous Approach (ICD-10-PCS; 2017-06-29)
PROC: 07DR3ZX Extraction of Iliac Bone Marrow, Percutaneous Approach, Diagnostic (ICD-10-PCS; 2017-07-03)
PROC: 0W9B3ZZ Drainage of Left Pleural Cavity, Percutaneous Approach (ICD-10-PCS; 2017-07-06)
DX: D46.9 Myelodysplastic syndrome, unspecified (principal); J18.9 Pneumonia, unspecified organism; N17.0 Acute kidney failure with tubular necrosis; J96.01 Acute respiratory failure with hypoxia; L89.152 Pressure ulcer of sacral region, stage 2; J90 Pleural effusion, not elsewhere classified; I50.32 Chronic diastolic (congestive) heart failure; E11.65 Type 2 diabetes mellitus with hyperglycemia; I27.2 Other secondary pulmonary hypertension; S32.302A Unspecified fracture of left ilium, initial encounter for closed fracture; E87.1 Hypo-osmolality and hyponatremia; S52.501A Unspecified fracture of the lower end of right radius, initial encounter for closed fracture; J98.11 Atelectasis; M80.031A Age-related osteoporosis with current pathological fracture, right forearm, initial encounter for fracture; C80.1 Malignant (primary) neoplasm, unspecified; E83.42 Hypomagnesemia; J44.9 Chronic obstructive pulmonary disease, unspecified; D63.0 Anemia in neoplastic disease; I10 Essential (primary) hypertension; Z51.5 Encounter for palliative care; Z66 Do not resuscitate; Z90.11 Acquired absence of right breast and nipple; Z87.891 Personal history of nicotine dependence; Z82.3 Family history of stroke; Z85.3 Personal history of malignant neoplasm of breast; Z80.0 Family history of malignant neoplasm of digestive organs; Z79.899 Other long term (current) drug therapy; Z79.82 Long term (current) use of aspirin; E03.9 Hypothyroidism, unspecified; E87.6 Hypokalemia; E83.51 Hypocalcemia; E78.5 Hyperlipidemia, unspecified; F32.9 Major depressive disorder, single episode, unspecified; F41.9 Anxiety disorder, unspecified; X58.XXXA Exposure to other specified factors, initial encounter; Y92.9 Unspecified place or not applicable; D50.9 Iron deficiency anemia, unspecified; E11.9 Type 2 diabetes mellitus without complications; B37.9 Candidiasis, unspecified; K21.9 Gastro-esophageal reflux disease without esophagitis; K59.00 Constipation, unspecified; D47.2 Monoclonal gammopathy; R31.29 Other microscopic hematuria; E53.8 Deficiency of other specified B group vitamins
CPT/HCPCS: 36415; 36600; 71010-TC; 71250-TC; 72020-TC; 72170-TC; 73110; 76604-TC; 76770-TC; 76942-TC; 77075-TC; 80048-TC; 80053-TC; 80061-TC; 80076-TC; 81000-TC; 82232; 82272-TC; 82550-TC; 82570-TC; 82728-TC; 82746; 82784; 82803-TC; 82962-TC; 83540-TC; 83605-TC; 83615-TC; 83735-TC; 83970; 84100-TC; 84155; 84155-TC; 84165; 84300-TC; 84439-TC; 84443-TC; 85025-TC; 85027-TC; 85378-TC; 85610-TC; 85730-TC; 86140-TC; 86300; 86334; 86431-TC; 86850-TC; 86921-TC; 87040-TC; 87081-TC; 87086-TC; 93970-TC; 94762-TC; 94799-TC; A4216; A4606; A6248; A6402; J0360; J0696; J0885; J1170; J1450; J1644; J2060; J2270; J2274; J2543; J2920; J3475; J3490; J7030; J7042; J7050; J7060; P9016-BL; Q0162; Z7610